=== PATIENT | male | born 1950 | race African-American/Black ===

== ENCOUNTER 2018-11-10 20:04 | Inpatient (IN) | payer MEDICARE, OTHER ==
[~2018-11-10] VITALS: Ht 170.2 cm; Wt 106.8 kg
[2018-11-10] MEDS ORDERED: ONDANSETRON PF 4 MG/2 ML VIAL. ONE (21:24)
[2018-11-10 21:41] LABS: BASO % 0 % (0-3); EOS # 0.1 x10^3/uL (0.0-0.7); EOS % 1 % (0-3); HEMATOCRIT 45.7 % (39.0-53.0); HEMOGLOBIN 15.3 g/dL (13.0-17.5); LYMPH # 0.9 x10^3/uL (1.0-4.8); LYMPH % 10 % (24-48); MEAN CORPUSCULAR HEMOGLOBIN 27 pg (25-35); MEAN CORPUSCULAR HGB CONC 34 g/dL (31-37); MEAN CORPUSCULAR VOLUME 81 fL (79-100); MONO # 1.3 x10^3/uL (0.0-1.1); MONO % 14 % (0-9); NEUT % 76 % (31-73); PLATELET COUNT 183 x10^3/uL (140-400); RED BLOOD COUNT 5.63 x10^6/uL (4.30-5.70); WHITE BLOOD COUNT 9.3 x10^3/uL (4.0-11.0)
[2018-11-10] MEDS ORDERED: ONDANSETRON PF 4 MG/2 ML VIAL. IV ONE (21:45)
[2018-11-10 21:52] LABS: PROTHROMBIN TIME PATIENT 15.8 SEC (11.7-14.0)
[2018-11-10 21:58] LABS: CREATININE 1.2 mg/dL (0.7-1.3); GFR 72.6; POTASSIUM 3.7 mmol/L (3.5-5.1)
[2018-11-10] MEDS ORDERED: ACETAMINOPHEN 500 MG TABLET PO ONE (22:00)
[2018-11-10] MEDS ORDERED: IV NORMAL SALINE 1000ML BAG 1,000 ML IV ONE ×2 (22:00→22:30)
[2018-11-10 22:04] LABS: ALBUMIN 4.1 g/dL (3.4-5.0); TOTAL BILIRUBIN 1.2 mg/dL (0.2-1.0); TOTAL PROTEIN 8.1 g/dL (6.4-8.2)
[2018-11-10] MEDS ORDERED: methylPREDNISolone SOD SUCC PF 125 MG/2 ML VIAL. IV ONE (22:30)
[2018-11-10] MEDS ORDERED: IPRATRPIUM/ALBUTEROL 0.5/2.5MG 3 ML NEBU. NEB ONE (22:30)
[2018-11-10] MEDS ORDERED: levOFLOXacin PER PHARMACY. MC PRN (22:30)
[2018-11-10 22:45] LABS: INFLUENZA A PATIENT POSITIVE (NEGATIVE); INFLUENZA B PATIENT NEGATIVE (NEGATIVE)
--- NOTE | 2018-11-10 22:50 | PHYS DOC ---
Past Medical History Past Medical History: Hypertension Past Surgical History: No Surgical History Smoking: Quit Greater Than 1 Year (Quit in his mid 20's, was a 1/2 pack per week smoker for 2 years) Alcohol Use: Rarely Drug Use: None Adult General Chief Complaint Chief Complaint: SHORTNESS OF BREATH HPI HPI Patient is a 68 year old afebrile male who presents with a productive cough, fever, and SOB. Pt reports that it started with just a cough yesterday evening that abruptly worsened today (11/10/18) in the early afternoon. He started to experience fever and chills, profound weakness and fatigue, and shortness of breath. He then started experiencing nausea and has vomited multiple times. He denies any sick contacts. The pt reports receiving his flu vaccination this year and a pneumococcal vaccination last year. Pt denies chest pain, palpitations, and CHIRINOS. Review of Systems Review of Systems Constitutional: Admits fever and chills Eyes: Denies change in visual acuity, redness, or eye pain HENT: Denies nasal congestion or sore throat Respiratory: Admits cough and shortness of breath Cardiovascular: No additional information not addressed in HPI GI: Admits to nausea and vomiting : Denies dysuria or hematuria Musculoskeletal: Denies back pain or joint pain Neurologic: Denies headache, focal weakness or sensory changes [] All other systems were reviewed and found to be within normal limits, except as documented in this note. Current Medications Current Medications Current Medications Medications (Trade) Dose Ordered Sig/Taj Start Time Stop Time Status Last Admin Dose Admin Acetaminophen (Tylenol) 1,000 mg 1X ONCE 11/10/18 22:00 11/10/18 22:01 DC 11/10/18 21:37 1,000 MG Albuterol/ Ipratropium (Duoneb) 3 ml 1X ONCE 11/10/18 22:30 11/10/18 22:31 DC 11/10/18 23:06 3 ML Levofloxacin/ Dextrose 100 ml @ 100 mls/hr 1X ONCE 11/10/18 22:45 11/10/18 23:44 DC 11/10/18 22:57 100 MLS/HR Levofloxacin/ Dextrose (Levaquin Per Pharmacy) 1 each PRN DAILY PRN 11/10/18 22:30 Methylprednisolone Sodium Succinate (SOLU-Medrol 125MG VIAL) 125 mg 1X ONCE 11/10/18 22:30 11/10/18 22:31 DC 11/10/18 22:27 125 MG Ondansetron HCl (Zofran) 4 mg 1X ONCE 11/10/18 21:45 11/10/18 21:46 DC 11/10/18 21:38 4 MG Sodium Chloride 1,000 ml @ 1,000 mls/hr 1X ONCE 11/10/18 22:30 11/10/18 23:29 DC 11/10/18 22:29 1,000 MLS/HR Allergies Allergies Allergies Coded Allergies Type Severity Reaction Last Updated Verified No Known Drug Allergies 11/10/18 No Physical Exam Physical Exam Constitutional: Well developed, well nourished, mild distress, toxic appearance. HENT: Normocephalic, atraumatic, bilateral external ears normal, oropharynx moist, no oral exudates, nose normal. [] Eyes: PERRLA, EOMI, conjunctiva normal, no discharge. [] Neck: Normal range of motion, no tenderness, supple, no stridor. [] Cardiovascular:Heart rate regular rhythm, no murmur [] Lungs & Thorax: Bilateral breath sounds have scattered rhonchi. His breaths are shallow and he is tachypneic. When instructed to take a deep breath he is unable to do so. Abdomen: Bowel sounds normal, soft, no tenderness, no masses, no pulsatile masses. [] Back: No tenderness, no CVA tenderness. [] Extremities: No tenderness, no cyanosis, no clubbing, ROM intact, no edema. [] Neurologic: Alert and oriented X 3, normal motor function, normal sensory function, no focal deficits noted. [] Current Patient Data Vital Signs Vital Signs Date Time Temp Pulse Resp B/P (MAP) Pulse Ox O2 Delivery O2 Flow Rate FiO2 11/10/18 22:30 89 19 182/81 (114) 93 Nasal Cannula 2.0 11/10/18 20:20 101.8 101.8 Lab Values Laboratory Tests Test 11/10/18 20:48 White Blood Count 9.3 x10^3/uL (4.0-11.0) Red Blood Count 5.63 x10^6/uL (4.30-5.70) Hemoglobin 15.3 g/dL (13.0-17.5) Hematocrit 45.7 % (39.0-53.0) Mean Corpuscular Volume 81 fL (79-100) Mean Corpuscular Hemoglobin 27 pg (25-35) Mean Corpuscular Hemoglobin Concent 34 g/dL (31-37) Red Cell Distribution Width 14.0 % (11.5-14.5) Platelet Count 183 x10^3/uL (140-400) Neutrophils (%) (Auto) 76 % (31-73) H Lymphocytes (%) (Auto) 10 % (24-48) L Monocytes (%) (Auto) 14 % (0-9) H Eosinophils (%) (Auto) 1 % (0-3) Basophils (%) (Auto) 0 % (0-3) Neutrophils # (Auto) 7.0 x10^3uL (1.8-7.7) Lymphocytes # (Auto) 0.9 x10^3/uL (1.0-4.8) L Monocytes # (Auto) 1.3 x10^3/uL (0.0-1.1) H Eosinophils # (Auto) 0.1 x10^3/uL (0.0-0.7) Basophils # (Auto) 0.0 x10^3/uL (0.0-0.2) Prothrombin Time 15.8 SEC (11.7-14.0) H Prothrombin Time INR 1.3 (0.8-1.1) H Sodium Level 139 mmol/L (136-145) Potassium Level 3.7 mmol/L (3.5-5.1) Chloride Level 100 mmol/L (98-107) Carbon Dioxide Level 26 mmol/L (21-32) Anion Gap 13 (6-14) Blood Urea Nitrogen 11 mg/dL (8-26) Creatinine 1.2 mg/dL (0.7-1.3) Estimated GFR (Cockcroft-Gault) 72.6 BUN/Creatinine Ratio 9 (6-20) Glucose Level 120 mg/dL (70-99) H Lactic Acid Level 2.7 mmol/L (0.4-2.0) H Calcium Level 9.0 mg/dL (8.5-10.1) Total Bilirubin 1.2 mg/dL (0.2-1.0) H Aspartate Amino Transferase (AST) 21 U/L (15-37) Alanine Aminotransferase (ALT) 35 U/L (16-63) Alkaline Phosphatase 80 U/L (46-116) Troponin I Quantitative 0.019 ng/mL (0.000-0.055) UP-Xpk-G-Type Natriuretic Peptide 1252 pg/mL (0-124) H Total Protein 8.1 g/dL (6.4-8.2) Albumin 4.1 g/dL (3.4-5.0) Albumin/Globulin Ratio 1.0 (1.0-1.7) Lipase 117 U/L (73-393) Procalcitonin 0.18 ng/mL (0.00-0.10) H Influenza Type A Antigen Positive (NEGATIVE) Influenza Type B Antigen Negative (NEGATIVE) Laboratory Tests 11/10/18 20:48 Laboratory Tests 11/10/18 20:48 EKG EKG []EKG shows normal sinus rhythm rate of 91 no acute ischemic changes noted PVC interpreted by me time of encounter. Radiology/Procedures Radiology/Procedures [] Impressions: cxr my interpretation shows a lll pneumonia. Course & Med Decision Making Course & Med Decision Making Patient is a 68 year old afebrile male who presents with a productive cough, fever, and SOB. Earlier today He started to experience fever and chills, profound weakness and fatigue, and shortness of breath. He then started experiencing nausea and has vomited multiple times. He denies any sick contacts. The pt reports receiving his flu vaccination this year and a pneumococcal vaccination last year. Pt denies chest pain, palpitations, and CHIRINOS. He was tachypneic, hypertensive, and unable to take a deep breath. Most likely diagnoses that need to be r/o or in: 1. Influenza 2. Sepsis 3. Pneumonia A CXR was ordered to check for acute pathology or infectious process leading to his tachypnea/SOA/cough/fever 2 sputum cultures and blood cultures, CBC, CMP, Lactic acid, ABX's, iv access and fluids were ordered with sepsis a possibility. Influenza screen. Patient was given IV antibiotics IV fluids albuterol we did a blood gas that did show a PaO2 of 55 on 3 L nasal cannula and went back to check the patient again he was breathing in the high 20s he felt a little better than before he was 93% on 4-5 L oxygen he said he was feeling a little better he will go to the intensive care unit. Did briefly discuss with on-call hospitalist was in the emergency room about this patient. [facility] for close monitoring given tachypnea. Critical care time was 40 minutes exclusive of procedures. for mgmt of acute hypoxemic respiratory failure. Dragon Disclaimer Dragon Disclaimer This electronic medical record was generated, in whole or in part, using a voice recognition dictation system. Departure Departure Impression: Primary Impression: Influenza Additional Impression: Pneumonia Disposition: ADMITTED INPATIENT Admitting Physician: Other Condition: STABLE Referrals: VIVEK MOSELEY MD (PCP) Problem Qualifiers RONNIE MOON MD Nov 10, 2018 22:50
[2018-11-10] MEDS ORDERED: OSELTAMIVIR 75 MG CAPSULE PO ONE (23:00)
[2018-11-10 23:28] LABS: BASE EXCESS ABG -3 mmol/L (-3-3); CORRECTED PCO2 ABG 35 mmHg; CORRECTED PO2 ABG 59 mmHg; HCO3 ABG 21 mmol/L (21-28); PCO2 ABG 34 mmHg (35-46); PO2 ABG 55 mmHg (65-108); SAT O2 ABG 89 % (92-99)
[2018-11-10] MEDS ORDERED: fentaNYL PF VIAL 100 MCG/2 ML VIAL IV PRN (23:30)
[2018-11-11] VITALS (16 sets, daily range): BP systolic 119–173; BP diastolic 57–80
--- NOTE | 2018-11-11 01:54 | RAD ---
Single view chest dated 11/10/2018. No comparison available. Clinical data indication: Fever. FINDINGS: Single upright exam performed. Heart and mediastinal contours are stable. There is some patchy increased density at both lung bases, left greater than right. No pleural effusion. No pneumothorax. There are a few scattered calcified granuloma. IMPRESSION: Patchy bibasilar opacity, atelectasis versus early pneumonia. Electronically signed by: Donato Brunner MD (11/11/2018 1:51 AM) [facility] [place]
[2018-11-11] MEDS: IV NORMAL SALINE 1000ML BAG 1,000 ML IV SCH ×4 (02:02→20:23)
--- NOTE | 2018-11-11 06:50 | PDOC ---
Provider Note Provider Note [id number] acute resp fail influenza A ?sepsis ?pneumonia see orders COLETTE OLVERA MD Nov 11, 2018 06:50
--- NOTE | 2018-11-11 07:32 | CONS ---
DATE OF CONSULTATION: 11/11/2018 REASON FOR CONSULTATION: I was asked to see this 68-year-old gentleman for acute respiratory failure, influenza A, pneumonia. HISTORY OF PRESENT ILLNESS: He has remote history of smoking in his 20s, has not been diagnosed with any lung disease. He has obstructive sleep apnea-hypopnea syndrome, he is on CPAP. He started to have weakness, cough, shortness of breath, yellow sputum production, fever, chills 2 days ago. He has had body aches. He did receive flu vaccination this year. He denies chest pain. He has had runny nose. PAST MEDICAL HISTORY: Hypertension, obstructive sleep apnea-hypopnea syndrome. ALLERGIES: No known drug allergies. MEDICATIONS: He received Tamiflu in the Emergency Room. He is on Levaquin and albuterol. SOCIAL HISTORY: Remote history of smoking in his 20s. FAMILY HISTORY: There is no history of lung disease. REVIEW OF SYSTEMS: As mentioned above. Other systems are otherwise negative. PHYSICAL EXAMINATION: VITAL SIGNS: This is an overweight gentleman, his O2 saturation on 2 liters of oxygen is 98%, respiratory rate 22, heart rate 68, blood pressure 147/72, temperature 97.9. On admission, he required 6 liters of oxygen. HEENT: Normocephalic, atraumatic. Pupils equal, round, reactive to light. Throat is clear. There is shallow oropharynx. Nose is clear. NECK: There is no JVD, lymphadenopathy or thyromegaly. CARDIOVASCULAR: Regular rate and rhythm. PMI is not displaced. CHEST: Inspection is normal. LUNGS: Coarse breath sounds, bibasilar crackles, dullness at the left base. ABDOMEN: Soft and obese. Bowel sounds are good. There is no mass. EXTREMITIES: There is no edema. LYMPHATICS: There is no lymphadenopathy. NEUROLOGIC: Alert and oriented. SKIN: Warm. LABORATORY DATA: I reviewed the following laboratory. Chest x-ray showed bibasilar infiltrate, left more than right. Influenza A positive. WBC 9.3, hemoglobin 15.3, platelets 183. Sodium 139, potassium 3.7, chloride 100, CO2 26, glucose 120, BUN 11, creatinine 1.2. BNP 1252. Procalcitonin 0.18. Lactate on admission was 2.7, now it is 1.8. ABG: pH 7.42, pCO2 34, pO2 55. IMPRESSION: 1. Acute respiratory failure secondary to influenza A, possible pneumonia, ? congestive heart failure, his BNP was 1252, versus others. 2. Abnormal chest x-ray. 3. Influenza A. 4. Possible pneumonia. 5. Possible sepsis. 6. Obstructive sleep apnea-hypopnea syndrome. 7. Hypertension. PLAN AND RECOMMENDATIONS: 1. Titrate FiO2 to keep O2 saturation 92%. 2. Bronchodilator. 3. Continue Tamiflu. 4. Continue Levaquin. 5. Follow up cultures. 6. Protonix for stress ulcer prophylaxis. 7. Lovenox for DVT prophylaxis. 8. Monitor respiratory status very closely in ICU. 9. Continue isolation for influenza A. 10. Use CPAP during sleep. 11. His BNP was elevated on admission. I do recommend an echocardiogram. 12. The findings and recommendations were discussed with the patient and RN. I have answered all of the patient's questions. He understood and agreed to proceed with the plan. Thank you very much for allowing me to participate in care of this very nice gentleman. COLETTE OLVERA M.D. : Bon JOB#: [id number] / [id number] YFN
[2018-11-11] MEDS: ALBUTEROL SULFATE 2.5 MG/3 ML NEBU. NEB SCH ×4 (07:40→20:11)
[2018-11-11] MEDS: PANTOPRAZOLE 40 MG TABLET.DR. PO SCH (08:01)
[2018-11-11] MEDS: ENOXAPARIN 40 MG/0.4 ML SYRINGE. SQ SCH (08:01)
--- NOTE | 2018-11-11 08:27 | EKG ---
[facility] [address] [place] [address] Test Date: 2018-11-10 Test Time: 21:41:52 Pat Name: GABRIELLA MURRAY Department: Room: 106 1 Gender: M Farmworker: : 1950 Requested By: RONNIE MOON Order Number: [id number] Reading MD: Josh Constantino MD Measurements Intervals [place] Rate: 91 P: 38 MS: 146 QRS: -58 QRSD: 96 T: 54 QT: 360 QTc: 444 Interpretive Statements SINUS RHYTHM VENTRICULAR PREMATURE COMPLEX(ES) LOW VOLTAGE BASELINE MOTION ARTIFACT Electronically Signed On 11-21-2018 21:49:10 CDT by Josh Constantino MD
[2018-11-11] MEDS: OSELTAMIVIR 75 MG CAPSULE PO SCH ×2 (09:22→20:19)
[2018-11-11] MEDS ORDERED: DEXTROSE 50% 25 GM / 50ML DISP.SYRIN. IV PRN (09:30)
--- NOTE | 2018-11-11 11:04 | HP ---
ADMIT DATE: 11/11/2018 CHIEF COMPLAINT: Shortness of breath. HISTORY OF PRESENT ILLNESS: The patient is a pleasant 68-year-old male who presented to the ER with shortness of breath. He had associated productive cough and fever. It has been occurring for several days, rated at 9/10, worse with moving. He tried taking some home meds, but that did not work. While he was in the ER, we noticed that he had a flu positive on his serology testing. He has now been admitted to the ICU where he is being examined in the room 106. It should also be noted that his chest x-ray is showing possible pneumonia. We plan to consult Pulmonary Medicine. PAST MEDICAL HISTORY: Hypertension. He is a smoker, half pack but quit 20 years ago. MEDICATIONS: Reviewed, please refer to the MRAD. ALLERGIES: None. FAMILY HISTORY: Coronary artery disease. SOCIAL HISTORY: He is retired. He does not currently drink, smoke or take drugs. REVIEW OF SYSTEMS: GENERAL: No history of weight change, weakness or fevers. SKIN: No bruising, hair changes or rashes. EYES: No blurred, double or loss of vision. NOSE AND THROAT: No history of nosebleeds, hoarseness or sore throat. HEART: No history of palpitations, chest pain or shortness of breath on exertion. LUNGS: He complains of shortness of breath. GASTROINTESTINAL: Denies changes in appetite, nausea, vomiting, diarrhea or constipation. GENITOURINARY: No history of frequency, urgency, hesitancy or nocturia. NEUROLOGIC: Denies history of numbness, tingling, tremor or weakness. PSYCHIATRIC: No history of panic, anxiety or depression. ENDOCRINE: No history of heat or cold intolerance, polyuria or polydipsia. EXTREMITIES: Denies muscle weakness, joint pain, pain on walking or stiffness. PHYSICAL EXAMINATION: VITAL SIGNS: Temperature 98, but it was as high as 101.8 last night, pulse 80, respirations 16, blood pressure 134/57, O2 sat 97% on 2 liters. GENERAL: He is alert, cooperative. He has a friend present who seems to be good support for him. HEART: Normal S1, S2. LUNGS: Slight crackles. ABDOMEN: Soft. EXTREMITIES: Trace edema. SKIN: No rashes. ENDOCRINE: No thyromegaly. LYMPHATICS: No cervical nodes. HEMATOPOIETIC: No bruising. PSYCHIATRIC: He is stable. LABORATORY DATA: Hematology is normal. Electrolytes are normal. Troponin 0.019. BNP 1252. INR 1.3. Chest x-ray shows possible pneumonia. ASSESSMENT AND PLAN: Flu and clinical pneumonia. The patient has been admitted. We are starting Tamiflu, IV Levaquin. Home meds. Deep vein thrombosis prophylaxis, ICU monitoring, PT, OT, frequent labs. Full code. DuoNeb and oxygen. We consulted Pulmonary. PROGNOSIS: Guarded. JOHN HEREDIA DO DR: LÓPEZ/diana JOB#: [id number] / [id number]
--- NOTE | 2018-11-11 11:14 | NUR ---
Order received from Dr. Colvin to downgrade patient. MOF status. Patient is currently on 2L NC, resting comfortably. Family at bedside. Tamiflu given at 0830. See EMAR. VS WNL.
[2018-11-11] MEDS: INSULIN LISPRO 300 UNITS/3 ML INSULN.PEN. SQ SCH ×2 (12:00→17:00)
[2018-11-11] MEDS ORDERED: METO200T46 PO (17:20)
[2018-11-11] MEDS ORDERED: AMLO10TA8 PO (17:20)
[2018-11-11] MEDS ORDERED: HYDR-2145 PO (17:20)
[2018-11-11] MEDS ORDERED: ALLO300T PO (17:20)
[2018-11-11] MEDS ORDERED: LISI-130 PO (17:20)
[2018-11-11] MEDS: LACTOBACILLUS RHAMNOSUS GG 1 CAPSULE. PO SCH (20:19)
[2018-11-12] MEDS: ALBUTEROL SULFATE 2.5 MG/3 ML NEBU. NEB SCH ×5 (00:08→23:30)
[2018-11-12 03:19] VITALS: BP 187/82
[2018-11-12 06:09] LABS: BASO % 0 % (0-3); EOS % 0 % (0-3); HEMATOCRIT 43.9 % (39.0-53.0); HEMOGLOBIN 14.1 g/dL (13.0-17.5); LYMPH # 1.3 x10^3/uL (1.0-4.8); LYMPH % 14 % (24-48); MEAN CORPUSCULAR HEMOGLOBIN 27 pg (25-35); MEAN CORPUSCULAR HGB CONC 32 g/dL (31-37); MEAN CORPUSCULAR VOLUME 84 fL (79-100); MONO % 11 % (0-9); NEUT # 6.9 x10^3uL (1.8-7.7); NEUT % 75 % (31-73); PLATELET COUNT 138 x10^3/uL (140-400); RED BLOOD COUNT 5.26 x10^6/uL (4.30-5.70); RED CELL DISTRIBUTION WIDTH 14.4 % (11.5-14.5); WHITE BLOOD COUNT 9.2 x10^3/uL (4.0-11.0)
[2018-11-12] MEDS: ENOXAPARIN 40 MG/0.4 ML SYRINGE. SQ SCH (06:09)
[2018-11-12 06:47] LABS: ALBUMIN 3.1 g/dL (3.4-5.0); ALBUMIN/GLOBULIN RATIO 0.8 (1.0-1.7); CALCIUM 8.5 mg/dL (8.5-10.1); CREATININE 0.9 mg/dL (0.7-1.3); GFR 101.2; POTASSIUM 3.6 mmol/L (3.5-5.1); TOTAL BILIRUBIN 0.8 mg/dL (0.2-1.0)
[2018-11-12 07:00] VITALS: BP 163/88
--- NOTE | 2018-11-12 07:09 | NUR ---
I have reviewed the notes, assessment, and /or procedures preformed by Esperanza Balderrama nursing home admissions director and concur with her documentation unless otherwise noted.
[2018-11-12] MEDS: INSULIN LISPRO 300 UNITS/3 ML INSULN.PEN. SQ SCH ×3 (08:00→17:00)
[2018-11-12] MEDS: OSELTAMIVIR 75 MG CAPSULE PO SCH ×2 (08:35→20:07)
[2018-11-12] MEDS: LACTOBACILLUS RHAMNOSUS GG 1 CAPSULE. PO SCH ×2 (08:35→20:07)
[2018-11-12] MEDS: PANTOPRAZOLE 40 MG TABLET.DR. PO SCH (08:35)
--- NOTE | 2018-11-12 09:54 | PDOC ---
PULMONARY PROGRESS NOTES Subjective still has sob, has cough, no pain, is on 02 Vitals Vital Signs Date Time Temp Pulse Resp B/P (MAP) Pulse Ox O2 Delivery O2 Flow Rate FiO2 11/12/18 07:13 95 Nasal Cannula 2.0 11/12/18 07:00 98.9 89 22 163/88 (113) 98.9 ROS: No Nausea General: Alert, Oriented X4 HEENT: Other (nc at perrl) Lungs: Wheezing Cardiovascular: S1, S2 Abdomen: Soft, Non-tender Neuro Exam: Alert Extremities: No Edema Skin: Warm Labs Laboratory Tests Test 11/10/18 20:48 11/10/18 22:52 11/11/18 03:07 11/11/18 04:00 White Blood Count 9.3 x10^3/uL (4.0-11.0) Red Blood Count 5.63 x10^6/uL (4.30-5.70) Hemoglobin 15.3 g/dL (13.0-17.5) Hematocrit 45.7 % (39.0-53.0) Mean Corpuscular Volume 81 fL (79-100) Mean Corpuscular Hemoglobin 27 pg (25-35) Mean Corpuscular Hemoglobin Concent 34 g/dL (31-37) Red Cell Distribution Width 14.0 % (11.5-14.5) Platelet Count 183 x10^3/uL (140-400) Neutrophils (%) (Auto) 76 % (31-73) Lymphocytes (%) (Auto) 10 % (24-48) Monocytes (%) (Auto) 14 % (0-9) Eosinophils (%) (Auto) 1 % (0-3) Basophils (%) (Auto) 0 % (0-3) Neutrophils # (Auto) 7.0 x10^3uL (1.8-7.7) Lymphocytes # (Auto) 0.9 x10^3/uL (1.0-4.8) Monocytes # (Auto) 1.3 x10^3/uL (0.0-1.1) Eosinophils # (Auto) 0.1 x10^3/uL (0.0-0.7) Basophils # (Auto) 0.0 x10^3/uL (0.0-0.2) Prothrombin Time 15.8 SEC (11.7-14.0) Prothromb Time International Ratio 1.3 (0.8-1.1) Sodium Level 139 mmol/L (136-145) Potassium Level 3.7 mmol/L (3.5-5.1) Chloride Level 100 mmol/L (98-107) Carbon Dioxide Level 26 mmol/L (21-32) Anion Gap 13 (6-14) Blood Urea Nitrogen 11 mg/dL (8-26) Creatinine 1.2 mg/dL (0.7-1.3) Estimated GFR (Cockcroft-Gault) 72.6 BUN/Creatinine Ratio 9 (6-20) Glucose Level 120 mg/dL (70-99) Lactic Acid Level 2.7 mmol/L (0.4-2.0) 1.8 mmol/L (0.4-2.0) Calcium Level 9.0 mg/dL (8.5-10.1) Total Bilirubin 1.2 mg/dL (0.2-1.0) Aspartate Amino Transf (AST/SGOT) 21 U/L (15-37) Alanine Aminotransferase (ALT/SGPT) 35 U/L (16-63) Alkaline Phosphatase 80 U/L (46-116) Troponin I Quantitative 0.019 ng/mL (0.000-0.055) AT-Ram-G-Type Natriuretic Peptide 1252 pg/mL (0-124) Total Protein 8.1 g/dL (6.4-8.2) Albumin 4.1 g/dL (3.4-5.0) Albumin/Globulin Ratio 1.0 (1.0-1.7) Lipase 117 U/L (73-393) Procalcitonin 0.18 ng/mL (0.00-0.10) Influenza Type A Antigen Positive (NEGATIVE) Influenza Type B Antigen Negative (NEGATIVE) O2 Saturation 89 % (92-99) Arterial Blood pH 7.42 (7.35-7.45) Arterial Blood pH (Temp corrected) 7.40 Arterial Blood pCO2 at Patient Temp 34 mmHg (35-46) Arterial Blood pCO2 (Temp correct) 35 mmHg Arterial Blood pO2 at Patient Temp 55 mmHg (65-108) Arterial Blood pO2 (Temp corrected) 59 mmHg Arterial Blood HCO3 21 mmol/L (21-28) Arterial Blood Base Excess -3 mmol/L (-3-3) Nasal Screen MRSA (PCR) Negative (Negative) Test 11/11/18 20:53 11/12/18 05:35 11/12/18 07:33 Glucose (Fingerstick) 125 mg/dL (70-99) 98 mg/dL (70-99) White Blood Count 9.2 x10^3/uL (4.0-11.0) Red Blood Count 5.26 x10^6/uL (4.30-5.70) Hemoglobin 14.1 g/dL (13.0-17.5) Hematocrit 43.9 % (39.0-53.0) Mean Corpuscular Volume 84 fL (79-100) Mean Corpuscular Hemoglobin 27 pg (25-35) Mean Corpuscular Hemoglobin Concent 32 g/dL (31-37) Red Cell Distribution Width 14.4 % (11.5-14.5) Platelet Count 138 x10^3/uL (140-400) Neutrophils (%) (Auto) 75 % (31-73) Lymphocytes (%) (Auto) 14 % (24-48) Monocytes (%) (Auto) 11 % (0-9) Eosinophils (%) (Auto) 0 % (0-3) Basophils (%) (Auto) 0 % (0-3) Neutrophils # (Auto) 6.9 x10^3uL (1.8-7.7) Lymphocytes # (Auto) 1.3 x10^3/uL (1.0-4.8) Monocytes # (Auto) 1.0 x10^3/uL (0.0-1.1) Eosinophils # (Auto) 0.0 x10^3/uL (0.0-0.7) Basophils # (Auto) 0.0 x10^3/uL (0.0-0.2) Sodium Level 144 mmol/L (136-145) Potassium Level 3.6 mmol/L (3.5-5.1) Chloride Level 107 mmol/L (98-107) Carbon Dioxide Level 25 mmol/L (21-32) Anion Gap 12 (6-14) Blood Urea Nitrogen 12 mg/dL (8-26) Creatinine 0.9 mg/dL (0.7-1.3) Estimated GFR (Cockcroft-Gault) 101.2 BUN/Creatinine Ratio 13 (6-20) Glucose Level 107 mg/dL (70-99) Calcium Level 8.5 mg/dL (8.5-10.1) Total Bilirubin 0.8 mg/dL (0.2-1.0) Aspartate Amino Transf (AST/SGOT) 30 U/L (15-37) Alanine Aminotransferase (ALT/SGPT) 30 U/L (16-63) Alkaline Phosphatase 61 U/L (46-116) Total Protein 7.0 g/dL (6.4-8.2) Albumin 3.1 g/dL (3.4-5.0) Albumin/Globulin Ratio 0.8 (1.0-1.7) Laboratory Tests Test 11/11/18 20:53 11/12/18 05:35 11/12/18 07:33 Glucose (Fingerstick) 125 mg/dL (70-99) 98 mg/dL (70-99) White Blood Count 9.2 x10^3/uL (4.0-11.0) Red Blood Count 5.26 x10^6/uL (4.30-5.70) Hemoglobin 14.1 g/dL (13.0-17.5) Hematocrit 43.9 % (39.0-53.0) Mean Corpuscular Volume 84 fL (79-100) Mean Corpuscular Hemoglobin 27 pg (25-35) Mean Corpuscular Hemoglobin Concent 32 g/dL (31-37) Red Cell Distribution Width 14.4 % (11.5-14.5) Platelet Count 138 x10^3/uL (140-400) Neutrophils (%) (Auto) 75 % (31-73) Lymphocytes (%) (Auto) 14 % (24-48) Monocytes (%) (Auto) 11 % (0-9) Eosinophils (%) (Auto) 0 % (0-3) Basophils (%) (Auto) 0 % (0-3) Neutrophils # (Auto) 6.9 x10^3uL (1.8-7.7) Lymphocytes # (Auto) 1.3 x10^3/uL (1.0-4.8) Monocytes # (Auto) 1.0 x10^3/uL (0.0-1.1) Eosinophils # (Auto) 0.0 x10^3/uL (0.0-0.7) Basophils # (Auto) 0.0 x10^3/uL (0.0-0.2) Sodium Level 144 mmol/L (136-145) Potassium Level 3.6 mmol/L (3.5-5.1) Chloride Level 107 mmol/L (98-107) Carbon Dioxide Level 25 mmol/L (21-32) Anion Gap 12 (6-14) Blood Urea Nitrogen 12 mg/dL (8-26) Creatinine 0.9 mg/dL (0.7-1.3) Estimated GFR (Cockcroft-Gault) 101.2 BUN/Creatinine Ratio 13 (6-20) Glucose Level 107 mg/dL (70-99) Calcium Level 8.5 mg/dL (8.5-10.1) Total Bilirubin 0.8 mg/dL (0.2-1.0) Aspartate Amino Transf (AST/SGOT) 30 U/L (15-37) Alanine Aminotransferase (ALT/SGPT) 30 U/L (16-63) Alkaline Phosphatase 61 U/L (46-116) Total Protein 7.0 g/dL (6.4-8.2) Albumin 3.1 g/dL (3.4-5.0) Albumin/Globulin Ratio 0.8 (1.0-1.7) Medications Active Scripts Medications Dose Route/Sig Max Daily Dose Days Date Category Metoprolol Succinate ( Xl ) (Metoprolol Succinate) 200 Mg Tab.er.24h 1 Tab PO DAILY 11/11/18 Reported Hydrochlorothiazide Tablet (Hydrochlorothiazide) 25 Mg Tablet 25 Mg PO DAILY 11/11/18 Reported Allopurinol 300 Mg Tablet 1 Tab PO DAILY 11/11/18 Reported Lisinopril 40 Mg Tablet 1 Tab PO DAILY 11/11/18 Reported Amlodipine Besylate 10 Mg Tablet 10 Mg PO DAILY 11/11/18 Reported Impression . IMPRESSION: 1. Acute respiratory failure secondary to influenza A, possible pneumonia, ? congestive heart failure, his BNP was 1252, versus others. 2. Abnormal chest x-ray. 3. Influenza A. 4. Possible pneumonia. 5. Possible sepsis. 6. Obstructive sleep apnea-hypopnea syndrome. 7. Hypertension. Plan . PLAN AND RECOMMENDATIONS: 1. Titrate FiO2 to keep O2 saturation 92%. 2. Bronchodilator. add ICS 3. Continue Tamiflu. 4. Continue Levaquin. 5. Follow up cultures. 6. Protonix for stress ulcer prophylaxis. 7. Lovenox for DVT prophylaxis. 8. Monitor respiratory status closely 9. Continue isolation for influenza A. 10. Use CPAP during sleep. 11. His BNP was elevated on admission. will do echocardiogram. discussed w priya and his daughter COLETTE OLVERA MD Nov 12, 2018 09:54
[2018-11-12] MEDS: BUDESONIDE 0.5 MG/2 ML NEBU. NEB SCH ×2 (10:00→20:27)
[2018-11-12 11:00] VITALS: BP 176/96
[2018-11-12] MEDS: hydroCHLOROthiazide 25 MG TABLET PO SCH (11:47)
[2018-11-12] MEDS: LISINOPRIL 20 MG TABLET PO SCH (11:49)
[2018-11-12] MEDS: amLODIPine BESYLATE 10 MG TABLET PO SCH (11:49)
[2018-11-12] MEDS: METOPROLOL SUCC 24HR ER 100 MG TAB.ER.24H. PO SCH (11:50)
[2018-11-12] MEDS: ALLOPURINOL 300 MG TABLET. PO SCH (11:50)
--- NOTE | 2018-11-12 12:41 | PDOC ---
PROGRESS NOTES Chief Complaint Chief Complaint Acute respiratory failure secondary to influenza A, possible pneumonia, ? CHF? elevated BNP Influenza A. Empiric treatment for Possible pneumonia. Obstructive sleep apnea-hypopnea syndrome. Hypertension. PLAN As per informatics consultant: 1. Titrate FiO2 to keep O2 saturation 92%. 2. Bronchodilator. 3. Continue Tamiflu. 4. Continue Levaquin. 5. Follow up cultures. 6. Protonix for stress ulcer prophylaxis. 7. Lovenox for DVT prophylaxis. Will restart his home medications reeval in the am Vitals Vitals Vital Signs Date Time Temp Pulse Resp B/P (MAP) Pulse Ox O2 Delivery O2 Flow Rate FiO2 11/12/18 11:50 88 176/96 11/12/18 11:00 98.8 18 91 Nasal Cannula 2.0 98.8 Physical Exam Lungs: Wheezing Labs LABS Laboratory Tests Test 11/11/18 20:53 11/12/18 05:35 11/12/18 07:33 11/12/18 11:44 Glucose (Fingerstick) 125 mg/dL (70-99) 98 mg/dL (70-99) 99 mg/dL (70-99) White Blood Count 9.2 x10^3/uL (4.0-11.0) Red Blood Count 5.26 x10^6/uL (4.30-5.70) Hemoglobin 14.1 g/dL (13.0-17.5) Hematocrit 43.9 % (39.0-53.0) Mean Corpuscular Volume 84 fL (79-100) Mean Corpuscular Hemoglobin 27 pg (25-35) Mean Corpuscular Hemoglobin Concent 32 g/dL (31-37) Red Cell Distribution Width 14.4 % (11.5-14.5) Platelet Count 138 x10^3/uL (140-400) Neutrophils (%) (Auto) 75 % (31-73) Lymphocytes (%) (Auto) 14 % (24-48) Monocytes (%) (Auto) 11 % (0-9) Eosinophils (%) (Auto) 0 % (0-3) Basophils (%) (Auto) 0 % (0-3) Neutrophils # (Auto) 6.9 x10^3uL (1.8-7.7) Lymphocytes # (Auto) 1.3 x10^3/uL (1.0-4.8) Monocytes # (Auto) 1.0 x10^3/uL (0.0-1.1) Eosinophils # (Auto) 0.0 x10^3/uL (0.0-0.7) Basophils # (Auto) 0.0 x10^3/uL (0.0-0.2) Sodium Level 144 mmol/L (136-145) Potassium Level 3.6 mmol/L (3.5-5.1) Chloride Level 107 mmol/L (98-107) Carbon Dioxide Level 25 mmol/L (21-32) Anion Gap 12 (6-14) Blood Urea Nitrogen 12 mg/dL (8-26) Creatinine 0.9 mg/dL (0.7-1.3) Estimated GFR (Cockcroft-Gault) 101.2 BUN/Creatinine Ratio 13 (6-20) Glucose Level 107 mg/dL (70-99) Calcium Level 8.5 mg/dL (8.5-10.1) Total Bilirubin 0.8 mg/dL (0.2-1.0) Aspartate Amino Transf (AST/SGOT) 30 U/L (15-37) Alanine Aminotransferase (ALT/SGPT) 30 U/L (16-63) Alkaline Phosphatase 61 U/L (46-116) Total Protein 7.0 g/dL (6.4-8.2) Albumin 3.1 g/dL (3.4-5.0) Albumin/Globulin Ratio 0.8 (1.0-1.7) Review of Systems Review of Systems Pertinent as per history of present illness otherwise 14 point review of system is negative Comment Review of Relevant I have reviewed the following items silvestre (where applicable) has been applied. Labs Laboratory Tests Test 11/10/18 20:48 11/10/18 22:52 11/11/18 03:07 11/11/18 04:00 White Blood Count 9.3 x10^3/uL (4.0-11.0) Red Blood Count 5.63 x10^6/uL (4.30-5.70) Hemoglobin 15.3 g/dL (13.0-17.5) Hematocrit 45.7 % (39.0-53.0) Mean Corpuscular Volume 81 fL (79-100) Mean Corpuscular Hemoglobin 27 pg (25-35) Mean Corpuscular Hemoglobin Concent 34 g/dL (31-37) Red Cell Distribution Width 14.0 % (11.5-14.5) Platelet Count 183 x10^3/uL (140-400) Neutrophils (%) (Auto) 76 % (31-73) Lymphocytes (%) (Auto) 10 % (24-48) Monocytes (%) (Auto) 14 % (0-9) Eosinophils (%) (Auto) 1 % (0-3) Basophils (%) (Auto) 0 % (0-3) Neutrophils # (Auto) 7.0 x10^3uL (1.8-7.7) Lymphocytes # (Auto) 0.9 x10^3/uL (1.0-4.8) Monocytes # (Auto) 1.3 x10^3/uL (0.0-1.1) Eosinophils # (Auto) 0.1 x10^3/uL (0.0-0.7) Basophils # (Auto) 0.0 x10^3/uL (0.0-0.2) Prothrombin Time 15.8 SEC (11.7-14.0) Prothromb Time International Ratio 1.3 (0.8-1.1) Sodium Level 139 mmol/L (136-145) Potassium Level 3.7 mmol/L (3.5-5.1) Chloride Level 100 mmol/L (98-107) Carbon Dioxide Level 26 mmol/L (21-32) Anion Gap 13 (6-14) Blood Urea Nitrogen 11 mg/dL (8-26) Creatinine 1.2 mg/dL (0.7-1.3) Estimated GFR (Cockcroft-Gault) 72.6 BUN/Creatinine Ratio 9 (6-20) Glucose Level 120 mg/dL (70-99) Lactic Acid Level 2.7 mmol/L (0.4-2.0) 1.8 mmol/L (0.4-2.0) Calcium Level 9.0 mg/dL (8.5-10.1) Total Bilirubin 1.2 mg/dL (0.2-1.0) Aspartate Amino Transf (AST/SGOT) 21 U/L (15-37) Alanine Aminotransferase (ALT/SGPT) 35 U/L (16-63) Alkaline Phosphatase 80 U/L (46-116) Troponin I Quantitative 0.019 ng/mL (0.000-0.055) TW-Zog-D-Type Natriuretic Peptide 1252 pg/mL (0-124) Total Protein 8.1 g/dL (6.4-8.2) Albumin 4.1 g/dL (3.4-5.0) Albumin/Globulin Ratio 1.0 (1.0-1.7) Lipase 117 U/L (73-393) Procalcitonin 0.18 ng/mL (0.00-0.10) Influenza Type A Antigen Positive (NEGATIVE) Influenza Type B Antigen Negative (NEGATIVE) O2 Saturation 89 % (92-99) Arterial Blood pH 7.42 (7.35-7.45) Arterial Blood pH (Temp corrected) 7.40 Arterial Blood pCO2 at Patient Temp 34 mmHg (35-46) Arterial Blood pCO2 (Temp correct) 35 mmHg Arterial Blood pO2 at Patient Temp 55 mmHg (65-108) Arterial Blood pO2 (Temp corrected) 59 mmHg Arterial Blood HCO3 21 mmol/L (21-28) Arterial Blood Base Excess -3 mmol/L (-3-3) Nasal Screen MRSA (PCR) Negative (Negative) Test 11/11/18 20:53 11/12/18 05:35 11/12/18 07:33 11/12/18 11:44 Glucose (Fingerstick) 125 mg/dL (70-99) 98 mg/dL (70-99) 99 mg/dL (70-99) White Blood Count 9.2 x10^3/uL (4.0-11.0) Red Blood Count 5.26 x10^6/uL (4.30-5.70) Hemoglobin 14.1 g/dL (13.0-17.5) Hematocrit 43.9 % (39.0-53.0) Mean Corpuscular Volume 84 fL (79-100) Mean Corpuscular Hemoglobin 27 pg (25-35) Mean Corpuscular Hemoglobin Concent 32 g/dL (31-37) Red Cell Distribution Width 14.4 % (11.5-14.5) Platelet Count 138 x10^3/uL (140-400) Neutrophils (%) (Auto) 75 % (31-73) Lymphocytes (%) (Auto) 14 % (24-48) Monocytes (%) (Auto) 11 % (0-9) Eosinophils (%) (Auto) 0 % (0-3) Basophils (%) (Auto) 0 % (0-3) Neutrophils # (Auto) 6.9 x10^3uL (1.8-7.7) Lymphocytes # (Auto) 1.3 x10^3/uL (1.0-4.8) Monocytes # (Auto) 1.0 x10^3/uL (0.0-1.1) Eosinophils # (Auto) 0.0 x10^3/uL (0.0-0.7) Basophils # (Auto) 0.0 x10^3/uL (0.0-0.2) Sodium Level 144 mmol/L (136-145) Potassium Level 3.6 mmol/L (3.5-5.1) Chloride Level 107 mmol/L (98-107) Carbon Dioxide Level 25 mmol/L (21-32) Anion Gap 12 (6-14) Blood Urea Nitrogen 12 mg/dL (8-26) Creatinine 0.9 mg/dL (0.7-1.3) Estimated GFR (Cockcroft-Gault) 101.2 BUN/Creatinine Ratio 13 (6-20) Glucose Level 107 mg/dL (70-99) Calcium Level 8.5 mg/dL (8.5-10.1) Total Bilirubin 0.8 mg/dL (0.2-1.0) Aspartate Amino Transf (AST/SGOT) 30 U/L (15-37) Alanine Aminotransferase (ALT/SGPT) 30 U/L (16-63) Alkaline Phosphatase 61 U/L (46-116) Total Protein 7.0 g/dL (6.4-8.2) Albumin 3.1 g/dL (3.4-5.0) Albumin/Globulin Ratio 0.8 (1.0-1.7) Laboratory Tests Test 11/11/18 20:53 11/12/18 05:35 11/12/18 07:33 11/12/18 11:44 Glucose (Fingerstick) 125 mg/dL (70-99) 98 mg/dL (70-99) 99 mg/dL (70-99) White Blood Count 9.2 x10^3/uL (4.0-11.0) Red Blood Count 5.26 x10^6/uL (4.30-5.70) Hemoglobin 14.1 g/dL (13.0-17.5) Hematocrit 43.9 % (39.0-53.0) Mean Corpuscular Volume 84 fL (79-100) Mean Corpuscular Hemoglobin 27 pg (25-35) Mean Corpuscular Hemoglobin Concent 32 g/dL (31-37) Red Cell Distribution Width 14.4 % (11.5-14.5) Platelet Count 138 x10^3/uL (140-400) Neutrophils (%) (Auto) 75 % (31-73) Lymphocytes (%) (Auto) 14 % (24-48) Monocytes (%) (Auto) 11 % (0-9) Eosinophils (%) (Auto) 0 % (0-3) Basophils (%) (Auto) 0 % (0-3) Neutrophils # (Auto) 6.9 x10^3uL (1.8-7.7) Lymphocytes # (Auto) 1.3 x10^3/uL (1.0-4.8) Monocytes # (Auto) 1.0 x10^3/uL (0.0-1.1) Eosinophils # (Auto) 0.0 x10^3/uL (0.0-0.7) Basophils # (Auto) 0.0 x10^3/uL (0.0-0.2) Sodium Level 144 mmol/L (136-145) Potassium Level 3.6 mmol/L (3.5-5.1) Chloride Level 107 mmol/L (98-107) Carbon Dioxide Level 25 mmol/L (21-32) Anion Gap 12 (6-14) Blood Urea Nitrogen 12 mg/dL (8-26) Creatinine 0.9 mg/dL (0.7-1.3) Estimated GFR (Cockcroft-Gault) 101.2 BUN/Creatinine Ratio 13 (6-20) Glucose Level 107 mg/dL (70-99) Calcium Level 8.5 mg/dL (8.5-10.1) Total Bilirubin 0.8 mg/dL (0.2-1.0) Aspartate Amino Transf (AST/SGOT) 30 U/L (15-37) Alanine Aminotransferase (ALT/SGPT) 30 U/L (16-63) Alkaline Phosphatase 61 U/L (46-116) Total Protein 7.0 g/dL (6.4-8.2) Albumin 3.1 g/dL (3.4-5.0) Albumin/Globulin Ratio 0.8 (1.0-1.7) Microbiology 11/11/18 Blood Culture - Preliminary, Resulted NO GROWTH AFTER 1 DAY Medications Current Medications Ondansetron HCl (Zofran) 4 mg STK-MED ONCE .ROUTE ; Start 11/10/18 at 21:24; Stop 11/10/18 at 21:25; Status DC Ondansetron HCl (Zofran) 4 mg 1X ONCE IV Last administered on 11/10/18 21:38; Start 11/10/18 at 21:45; Stop 11/10/18 at 21:46; Status DC Sodium Chloride 1,000 ml @ 1,000 mls/hr 1X ONCE IV Last administered on 21:38; Start 11/10/18 at 22:00; Stop 11/10/18 at 22:59; Status DC Acetaminophen (Tylenol) 1,000 mg 1X ONCE PO Last administered on 11/10/18 21: 37; Start 11/10/18 at 22:00; Stop 11/10/18 at 22:01; Status DC Albuterol/ Ipratropium (Duoneb) 3 ml 1X ONCE NEB Last administered on 23:06; Start 11/10/18 at 22:30; Stop 11/10/18 at 22:31; Status DC Methylprednisolone Sodium Succinate (SOLU-Medrol 125MG VIAL) 125 mg 1X ONCE IV Last administered on 11/10/18 22:27; Start 11/10/18 at 22:30; Stop 11/10/18 at 22:31; Status DC Sodium Chloride 1,000 ml @ 1,000 mls/hr 1X ONCE IV Last administered on 22:29; Start 11/10/18 at 22:30; Stop 11/10/18 at 23:29; Status DC Levofloxacin/ Dextrose (Levaquin Per Pharmacy) 1 each PRN DAILY PRN MC SEE COMMENTS; Start 11/10/18 at 22:30; Stop 11/11/18 at 08:54; Status DC Levofloxacin/ Dextrose 100 ml @ 100 mls/hr 1X ONCE IV Last administered on 11/10/18at 22:57; Start 11/10/18 at 22:45; Stop 11/10/18 at 23:44; Status DC Oseltamivir Phosphate (Tamiflu) 75 mg ONCE ONCE PO Last administered on 23:59; Start 11/10/18 at 23:00; Stop 11/10/18 at 23:01; Status DC Fentanyl Citrate (Fentanyl 2ml Vial) 50 mcg PRN Q1HR PRN IV PAIN; Start at 23:30; Stop 11/11/18 at 23:29; Status DC Sodium Chloride 1,000 ml @ 150 mls/hr Q6H40M IV Last administered on 11/11/18 20:23; Start 11/10/18 at 23:30; Stop 11/11/18 at 23:29; Status DC Acetaminophen (Tylenol) 650 mg PRN Q6HRS PRN PO FEVER; Start 11/10/18 at 23:30 Albuterol Sulfate (Ventolin Neb Soln) 2.5 mg Q6HRS NEB Last administered on 07:11; Start 11/11/18 at 00:00 Levofloxacin/ Dextrose 100 ml @ 100 mls/hr Q24H IV Last administered on 20:23; Start 11/11/18 at 21:00 Pantoprazole Sodium (Protonix) 40 mg DAILYAC PO Last administered on 11/12/18 08:35; Start 11/11/18 at 07:30 Enoxaparin Sodium (Lovenox 40mg Syringe) 40 mg Q24H SQ Last administered on 06:09; Start 11/11/18 at 07:00 Oseltamivir Phosphate (Tamiflu) 75 mg BID PO Last administered on 11/12/18 08: 35; Start 11/11/18 at 09:00; Stop 11/16/18 at 08:59 Lactobacillus Rhamnosus (Culturelle) 1 cap BID PO Last administered on 08:35; Start 11/11/18 at 21:00 Insulin Human Lispro (HumaLOG) 0-5 UNITS TIDWMEALS SQ ; Start 11/11/18 at 12:00 Dextrose (Dextrose 50%-Water Syringe) 12.5 gm PRN Q15MIN PRN IV SEE COMMENTS; Start 11/11/18 at 09:30 Budesonide (Pulmicort) 0.5 mg RTBID NEB ; Start 11/12/18 at 10:00 Allopurinol (Zyloprim) 300 mg DAILY PO Last administered on 11/12/18at 11:50; Start 11/12/18 at 11:00 Amlodipine Besylate (Norvasc) 10 mg DAILY PO Last administered on 11/12/18at 11: 49; Start 11/12/18 at 11:00 Hydrochlorothiazide (Hydrodiuril) 25 mg DAILY PO Last administered on at 11:47; Start 11/12/18 at 11:00 Lisinopril (Prinivil) 40 mg DAILY PO Last administered on 11/12/18at 11:49; Start 11/12/18 at 11:00 Metoprolol Succinate (Toprol Xl) 200 mg DAILY PO Last administered on at 11:50; Start 11/12/18 at 11:00 Active Scripts Active Reported Metoprolol Succinate ( Xl ) (Metoprolol Succinate) 200 Mg Tab.er.24h 1 Tab PO DAILY Hydrochlorothiazide Tablet (Hydrochlorothiazide) 25 Mg Tablet 25 Mg PO DAILY Allopurinol 300 Mg Tablet 1 Tab PO DAILY Lisinopril 40 Mg Tablet 1 Tab PO DAILY Amlodipine Besylate 10 Mg Tablet 10 Mg PO DAILY Vitals/I & O Vital Sign - Last 24 Hours 11/11/18 11/11/18 11/11/18 11/11/18 13:27 16:00 19:20 19:39 Temp 99.1 98.2 99.1 98.2 Pulse 88 83 Resp 15 19 B/P (MAP) 145/62 (89) 132/69 (90) Pulse Ox 98 95 O2 Delivery Nasal Cannula Nasal Cannula Nasal Cannula Nasal Cannula O2 Flow Rate 2.0 2.0 2.0 2.0 11/11/18 11/11/18 11/11/18 11/12/18 20:00 20:11 23:23 00:06 Temp 98.1 98.1 Pulse 86 Resp 19 B/P (MAP) 162/79 (106) Pulse Ox 95 96 O2 Delivery Nasal Cannula Nasal Cannula Nasal Cannula Nasal Cannula O2 Flow Rate 2.0 2.0 2.0 2.0 11/12/18 11/12/18 11/12/18 11/12/18 03:19 07:00 07:13 08:00 Temp 98.6 98.9 98.6 98.9 Pulse 89 89 Resp 20 22 B/P (MAP) 187/82 (117) 163/88 (113) Pulse Ox 94 94 95 O2 Delivery Nasal Cannula Nasal Cannula Nasal Cannula Nasal Cannula O2 Flow Rate 2.0 2.0 2.0 2.0 11/12/18 11/12/18 11/12/18 11/12/18 11:00 11:49 11:49 11:50 Temp 98.8 98.8 Pulse 88 88 88 88 Resp 18 B/P (MAP) 176/96 (122) 176/96 176/96 176/96 Pulse Ox 91 O2 Delivery Nasal Cannula O2 Flow Rate 2.0 Intake and Output 11/11/18 11/11/18 11/12/18 14:59 22:59 06:59 Intake Total 900 ml 506 ml Output Total 1050 ml 400 ml Balance -150 ml -400 ml 506 ml AARON PRIEST MD Nov 12, 2018 12:41
[2018-11-12 15:00] VITALS: BP 177/84
[2018-11-12] MEDS ORDERED: LABETALOL 20 MG/4 ML DISP.SYRIN. IVP PRN (15:45)
[2018-11-12] MEDS: ACETAMINOPHEN 325 MG TABLET. PO PRN ×2 (16:02→20:07)
[2018-11-12 19:00] VITALS: BP 136/67
[2018-11-12 23:00] VITALS: BP 148/42
[2018-11-13 03:09] VITALS: BP 161/75
[2018-11-13 07:00] VITALS: BP 167/79
[2018-11-13] MEDS: BUDESONIDE 0.5 MG/2 ML NEBU. NEB SCH ×2 (07:24→21:52)
[2018-11-13] MEDS: ALBUTEROL SULFATE 2.5 MG/3 ML NEBU. NEB SCH ×5 (07:24→21:56)
[2018-11-13] MEDS: INSULIN LISPRO 300 UNITS/3 ML INSULN.PEN. SQ SCH ×2 (08:00→12:00)
[2018-11-13] MEDS: ALLOPURINOL 300 MG TABLET. PO SCH (08:28)
[2018-11-13] MEDS: hydroCHLOROthiazide 25 MG TABLET PO SCH (08:28)
[2018-11-13] MEDS: LACTOBACILLUS RHAMNOSUS GG 1 CAPSULE. PO SCH ×2 (08:28→22:09)
[2018-11-13] MEDS: PANTOPRAZOLE 40 MG TABLET.DR. PO SCH (08:28)
[2018-11-13] MEDS: METOPROLOL SUCC 24HR ER 100 MG TAB.ER.24H. PO SCH (08:29)
[2018-11-13] MEDS: OSELTAMIVIR 75 MG CAPSULE PO SCH ×2 (08:29→22:09)
[2018-11-13] MEDS: amLODIPine BESYLATE 10 MG TABLET PO SCH (08:29)
[2018-11-13] MEDS: LISINOPRIL 20 MG TABLET PO SCH (08:30)
[2018-11-13] MEDS: ENOXAPARIN 40 MG/0.4 ML SYRINGE. SQ SCH (08:30)
[2018-11-13 08:32] LABS: BASO % 0 % (0-3); EOS # 0.1 x10^3/uL (0.0-0.7); EOS % 1 % (0-3); HEMATOCRIT 48.1 % (39.0-53.0); HEMOGLOBIN 15.7 g/dL (13.0-17.5); LYMPH # 1.8 x10^3/uL (1.0-4.8); LYMPH % 32 % (24-48); MEAN CORPUSCULAR HEMOGLOBIN 27 pg (25-35); MEAN CORPUSCULAR HGB CONC 33 g/dL (31-37); MEAN CORPUSCULAR VOLUME 82 fL (79-100); MONO # 0.9 x10^3/uL (0.0-1.1); MONO % 16 % (0-9); NEUT # 2.8 x10^3uL (1.8-7.7); NEUT % 51 % (31-73); PLATELET COUNT 157 x10^3/uL (140-400); RED BLOOD COUNT 5.84 x10^6/uL (4.30-5.70); RED CELL DISTRIBUTION WIDTH 14.1 % (11.5-14.5); WHITE BLOOD COUNT 5.6 x10^3/uL (4.0-11.0)
[2018-11-13 08:49] LABS: ALBUMIN 3.3 g/dL (3.4-5.0); ALBUMIN/GLOBULIN RATIO 0.8 (1.0-1.7); CALCIUM 8.8 mg/dL (8.5-10.1); CREATININE 1.1 mg/dL (0.7-1.3); GFR 80.3; POTASSIUM 3.1 mmol/L (3.5-5.1); TOTAL BILIRUBIN 1.5 mg/dL (0.2-1.0); TOTAL PROTEIN 7.7 g/dL (6.4-8.2)
--- NOTE | 2018-11-13 09:15 | NUR ---
IP: Pt is influenza + requiring droplet precautions for 5 days and 24 hours without a fever, whichever is longest.
[2018-11-13 11:00] VITALS: BP 172/80
--- NOTE | 2018-11-13 13:05 | NUR ---
SW following for discharge planning. Discussed with RN, PT recommending home at discharge. RN advised no SW needs at this time.
--- NOTE | 2018-11-13 13:24 | PDOC ---
PROGRESS NOTES Chief Complaint Chief Complaint Acute respiratory failure secondary to influenza A, possible pneumonia, ? CHF? elevated BNP Influenza A. Empiric treatment for Possible pneumonia. Obstructive sleep apnea-hypopnea syndrome. Hypertension. PLAN continue current care ECHO pending as per retail consultant reeval in the am encourage more ambulation and activity Hopefully discharge soon History of Present Illness History of Present Illness Patient clinically better. No new complaints no acute events reported overnight plan of care explaining detail Vitals Vitals Vital Signs Date Time Temp Pulse Resp B/P (MAP) Pulse Ox O2 Delivery O2 Flow Rate FiO2 11/13/18 11:00 98.1 67 18 172/80 (110) 94 Room Air 98.1 11/13/18 08:00 2.0 Physical Exam Lungs: Wheezing Labs LABS Laboratory Tests Test 11/12/18 16:50 11/12/18 20:36 11/13/18 07:31 11/13/18 08:05 Glucose (Fingerstick) 114 mg/dL (70-99) 113 mg/dL (70-99) 94 mg/dL (70-99) White Blood Count 5.6 x10^3/uL (4.0-11.0) Red Blood Count 5.84 x10^6/uL (4.30-5.70) Hemoglobin 15.7 g/dL (13.0-17.5) Hematocrit 48.1 % (39.0-53.0) Mean Corpuscular Volume 82 fL (79-100) Mean Corpuscular Hemoglobin 27 pg (25-35) Mean Corpuscular Hemoglobin Concent 33 g/dL (31-37) Red Cell Distribution Width 14.1 % (11.5-14.5) Platelet Count 157 x10^3/uL (140-400) Neutrophils (%) (Auto) 51 % (31-73) Lymphocytes (%) (Auto) 32 % (24-48) Monocytes (%) (Auto) 16 % (0-9) Eosinophils (%) (Auto) 1 % (0-3) Basophils (%) (Auto) 0 % (0-3) Neutrophils # (Auto) 2.8 x10^3uL (1.8-7.7) Lymphocytes # (Auto) 1.8 x10^3/uL (1.0-4.8) Monocytes # (Auto) 0.9 x10^3/uL (0.0-1.1) Eosinophils # (Auto) 0.1 x10^3/uL (0.0-0.7) Basophils # (Auto) 0.0 x10^3/uL (0.0-0.2) Sodium Level 140 mmol/L (136-145) Potassium Level 3.1 mmol/L (3.5-5.1) Chloride Level 99 mmol/L (98-107) Carbon Dioxide Level 28 mmol/L (21-32) Anion Gap 13 (6-14) Blood Urea Nitrogen 11 mg/dL (8-26) Creatinine 1.1 mg/dL (0.7-1.3) Estimated GFR (Cockcroft-Gault) 80.3 BUN/Creatinine Ratio 10 (6-20) Glucose Level 111 mg/dL (70-99) Calcium Level 8.8 mg/dL (8.5-10.1) Total Bilirubin 1.5 mg/dL (0.2-1.0) Aspartate Amino Transf (AST/SGOT) 24 U/L (15-37) Alanine Aminotransferase (ALT/SGPT) 30 U/L (16-63) Alkaline Phosphatase 61 U/L (46-116) Total Protein 7.7 g/dL (6.4-8.2) Albumin 3.3 g/dL (3.4-5.0) Albumin/Globulin Ratio 0.8 (1.0-1.7) Test 11/13/18 11:15 Glucose (Fingerstick) 98 mg/dL (70-99) Comment Review of Relevant I have reviewed the following items silvestre (where applicable) has been applied. Labs Laboratory Tests Test 11/11/18 20:53 11/12/18 05:35 11/12/18 07:33 11/12/18 11:44 Glucose (Fingerstick) 125 mg/dL (70-99) 98 mg/dL (70-99) 99 mg/dL (70-99) White Blood Count 9.2 x10^3/uL (4.0-11.0) Red Blood Count 5.26 x10^6/uL (4.30-5.70) Hemoglobin 14.1 g/dL (13.0-17.5) Hematocrit 43.9 % (39.0-53.0) Mean Corpuscular Volume 84 fL (79-100) Mean Corpuscular Hemoglobin 27 pg (25-35) Mean Corpuscular Hemoglobin Concent 32 g/dL (31-37) Red Cell Distribution Width 14.4 % (11.5-14.5) Platelet Count 138 x10^3/uL (140-400) Neutrophils (%) (Auto) 75 % (31-73) Lymphocytes (%) (Auto) 14 % (24-48) Monocytes (%) (Auto) 11 % (0-9) Eosinophils (%) (Auto) 0 % (0-3) Basophils (%) (Auto) 0 % (0-3) Neutrophils # (Auto) 6.9 x10^3uL (1.8-7.7) Lymphocytes # (Auto) 1.3 x10^3/uL (1.0-4.8) Monocytes # (Auto) 1.0 x10^3/uL (0.0-1.1) Eosinophils # (Auto) 0.0 x10^3/uL (0.0-0.7) Basophils # (Auto) 0.0 x10^3/uL (0.0-0.2) Sodium Level 144 mmol/L (136-145) Potassium Level 3.6 mmol/L (3.5-5.1) Chloride Level 107 mmol/L (98-107) Carbon Dioxide Level 25 mmol/L (21-32) Anion Gap 12 (6-14) Blood Urea Nitrogen 12 mg/dL (8-26) Creatinine 0.9 mg/dL (0.7-1.3) Estimated GFR (Cockcroft-Gault) 101.2 BUN/Creatinine Ratio 13 (6-20) Glucose Level 107 mg/dL (70-99) Calcium Level 8.5 mg/dL (8.5-10.1) Total Bilirubin 0.8 mg/dL (0.2-1.0) Aspartate Amino Transf (AST/SGOT) 30 U/L (15-37) Alanine Aminotransferase (ALT/SGPT) 30 U/L (16-63) Alkaline Phosphatase 61 U/L (46-116) Total Protein 7.0 g/dL (6.4-8.2) Albumin 3.1 g/dL (3.4-5.0) Albumin/Globulin Ratio 0.8 (1.0-1.7) Test 11/12/18 16:50 11/12/18 20:36 11/13/18 07:31 11/13/18 08:05 Glucose (Fingerstick) 114 mg/dL (70-99) 113 mg/dL (70-99) 94 mg/dL (70-99) White Blood Count 5.6 x10^3/uL (4.0-11.0) Red Blood Count 5.84 x10^6/uL (4.30-5.70) Hemoglobin 15.7 g/dL (13.0-17.5) Hematocrit 48.1 % (39.0-53.0) Mean Corpuscular Volume 82 fL (79-100) Mean Corpuscular Hemoglobin 27 pg (25-35) Mean Corpuscular Hemoglobin Concent 33 g/dL (31-37) Red Cell Distribution Width 14.1 % (11.5-14.5) Platelet Count 157 x10^3/uL (140-400) Neutrophils (%) (Auto) 51 % (31-73) Lymphocytes (%) (Auto) 32 % (24-48) Monocytes (%) (Auto) 16 % (0-9) Eosinophils (%) (Auto) 1 % (0-3) Basophils (%) (Auto) 0 % (0-3) Neutrophils # (Auto) 2.8 x10^3uL (1.8-7.7) Lymphocytes # (Auto) 1.8 x10^3/uL (1.0-4.8) Monocytes # (Auto) 0.9 x10^3/uL (0.0-1.1) Eosinophils # (Auto) 0.1 x10^3/uL (0.0-0.7) Basophils # (Auto) 0.0 x10^3/uL (0.0-0.2) Sodium Level 140 mmol/L (136-145) Potassium Level 3.1 mmol/L (3.5-5.1) Chloride Level 99 mmol/L (98-107) Carbon Dioxide Level 28 mmol/L (21-32) Anion Gap 13 (6-14) Blood Urea Nitrogen 11 mg/dL (8-26) Creatinine 1.1 mg/dL (0.7-1.3) Estimated GFR (Cockcroft-Gault) 80.3 BUN/Creatinine Ratio 10 (6-20) Glucose Level 111 mg/dL (70-99) Calcium Level 8.8 mg/dL (8.5-10.1) Total Bilirubin 1.5 mg/dL (0.2-1.0) Aspartate Amino Transf (AST/SGOT) 24 U/L (15-37) Alanine Aminotransferase (ALT/SGPT) 30 U/L (16-63) Alkaline Phosphatase 61 U/L (46-116) Total Protein 7.7 g/dL (6.4-8.2) Albumin 3.3 g/dL (3.4-5.0) Albumin/Globulin Ratio 0.8 (1.0-1.7) Test 11/13/18 11:15 Glucose (Fingerstick) 98 mg/dL (70-99) Laboratory Tests Test 11/12/18 16:50 11/12/18 20:36 11/13/18 07:31 11/13/18 08:05 Glucose (Fingerstick) 114 mg/dL (70-99) 113 mg/dL (70-99) 94 mg/dL (70-99) White Blood Count 5.6 x10^3/uL (4.0-11.0) Red Blood Count 5.84 x10^6/uL (4.30-5.70) Hemoglobin 15.7 g/dL (13.0-17.5) Hematocrit 48.1 % (39.0-53.0) Mean Corpuscular Volume 82 fL (79-100) Mean Corpuscular Hemoglobin 27 pg (25-35) Mean Corpuscular Hemoglobin Concent 33 g/dL (31-37) Red Cell Distribution Width 14.1 % (11.5-14.5) Platelet Count 157 x10^3/uL (140-400) Neutrophils (%) (Auto) 51 % (31-73) Lymphocytes (%) (Auto) 32 % (24-48) Monocytes (%) (Auto) 16 % (0-9) Eosinophils (%) (Auto) 1 % (0-3) Basophils (%) (Auto) 0 % (0-3) Neutrophils # (Auto) 2.8 x10^3uL (1.8-7.7) Lymphocytes # (Auto) 1.8 x10^3/uL (1.0-4.8) Monocytes # (Auto) 0.9 x10^3/uL (0.0-1.1) Eosinophils # (Auto) 0.1 x10^3/uL (0.0-0.7) Basophils # (Auto) 0.0 x10^3/uL (0.0-0.2) Sodium Level 140 mmol/L (136-145) Potassium Level 3.1 mmol/L (3.5-5.1) Chloride Level 99 mmol/L (98-107) Carbon Dioxide Level 28 mmol/L (21-32) Anion Gap 13 (6-14) Blood Urea Nitrogen 11 mg/dL (8-26) Creatinine 1.1 mg/dL (0.7-1.3) Estimated GFR (Cockcroft-Gault) 80.3 BUN/Creatinine Ratio 10 (6-20) Glucose Level 111 mg/dL (70-99) Calcium Level 8.8 mg/dL (8.5-10.1) Total Bilirubin 1.5 mg/dL (0.2-1.0) Aspartate Amino Transf (AST/SGOT) 24 U/L (15-37) Alanine Aminotransferase (ALT/SGPT) 30 U/L (16-63) Alkaline Phosphatase 61 U/L (46-116) Total Protein 7.7 g/dL (6.4-8.2) Albumin 3.3 g/dL (3.4-5.0) Albumin/Globulin Ratio 0.8 (1.0-1.7) Test 11/13/18 11:15 Glucose (Fingerstick) 98 mg/dL (70-99) Microbiology 11/11/18 Blood Culture - Preliminary, Resulted NO GROWTH AFTER 2 DAYS Medications Current Medications Ondansetron HCl (Zofran) 4 mg STK-MED ONCE .ROUTE ; Start 11/10/18 at 21:24; Stop 11/10/18 at 21:25; Status DC Ondansetron HCl (Zofran) 4 mg 1X ONCE IV Last administered on 11/10/18at 21:38; Start 11/10/18 at 21:45; Stop 11/10/18 at 21:46; Status DC Sodium Chloride 1,000 ml @ 1,000 mls/hr 1X ONCE IV Last administered on at 21:38; Start 11/10/18 at 22:00; Stop 11/10/18 at 22:59; Status DC Acetaminophen (Tylenol) 1,000 mg 1X ONCE PO Last administered on 11/10/18 21: 37; Start 11/10/18 at 22:00; Stop 11/10/18 at 22:01; Status DC Albuterol/ Ipratropium (Duoneb) 3 ml 1X ONCE NEB Last administered on 23:06; Start 11/10/18 at 22:30; Stop 11/10/18 at 22:31; Status DC Methylprednisolone Sodium Succinate (SOLU-Medrol 125MG VIAL) 125 mg 1X ONCE IV Last administered on 11/10/18 22:27; Start 11/10/18 at 22:30; Stop 11/10/18 at 22:31; Status DC Sodium Chloride 1,000 ml @ 1,000 mls/hr 1X ONCE IV Last administered on 22:29; Start 11/10/18 at 22:30; Stop 11/10/18 at 23:29; Status DC Levofloxacin/ Dextrose (Levaquin Per Pharmacy) 1 each PRN DAILY PRN MC SEE COMMENTS; Start 11/10/18 at 22:30; Stop 11/11/18 at 08:54; Status DC Levofloxacin/ Dextrose 100 ml @ 100 mls/hr 1X ONCE IV Last administered on 22:57; Start 11/10/18 at 22:45; Stop 11/10/18 at 23:44; Status DC Oseltamivir Phosphate (Tamiflu) 75 mg ONCE ONCE PO Last administered on 23:59; Start 11/10/18 at 23:00; Stop 11/10/18 at 23:01; Status DC Fentanyl Citrate (Fentanyl 2ml Vial) 50 mcg PRN Q1HR PRN IV PAIN; Start at 23:30; Stop 11/11/18 at 23:29; Status DC Sodium Chloride 1,000 ml @ 150 mls/hr Q6H40M IV Last administered on 11/11/18at 20:23; Start 11/10/18 at 23:30; Stop 11/11/18 at 23:29; Status DC Acetaminophen (Tylenol) 650 mg PRN Q6HRS PRN PO FEVER Last administered on 11/12 20:07; Start 11/10/18 at 23:30 Albuterol Sulfate (Ventolin Neb Soln) 2.5 mg Q6HRS NEB Last administered on 23:30; Start 11/11/18 at 00:00; Stop 11/13/18 at 03:56; Status DC Levofloxacin/ Dextrose 100 ml @ 100 mls/hr Q24H IV Last administered on 20:03; Start 11/11/18 at 21:00 Pantoprazole Sodium (Protonix) 40 mg DAILYAC PO Last administered on 11/13/18 08:28; Start 11/11/18 at 07:30 Enoxaparin Sodium (Lovenox 40mg Syringe) 40 mg Q24H SQ Last administered on 08:30; Start 11/11/18 at 07:00 Oseltamivir Phosphate (Tamiflu) 75 mg BID PO Last administered on 11/13/18 08: 29; Start 11/11/18 at 09:00; Stop 11/16/18 at 08:59 Lactobacillus Rhamnosus (Culturelle) 1 cap BID PO Last administered on 08:28; Start 11/11/18 at 21:00 Insulin Human Lispro (HumaLOG) 0-5 UNITS TIDWMEALS SQ ; Start 11/11/18 at 12:00 Dextrose (Dextrose 50%-Water Syringe) 12.5 gm PRN Q15MIN PRN IV SEE COMMENTS; Start 11/11/18 at 09:30 Budesonide (Pulmicort) 0.5 mg RTBID NEB Last administered on 11/13/18 07:24; Start 11/12/18 at 10:00 Allopurinol (Zyloprim) 300 mg DAILY PO Last administered on 11/13/18 08:28; Start 11/12/18 at 11:00 Amlodipine Besylate (Norvasc) 10 mg DAILY PO Last administered on 11/13/18 08: 29; Start 11/12/18 at 11:00 Hydrochlorothiazide (Hydrodiuril) 25 mg DAILY PO Last administered on 08:28; Start 11/12/18 at 11:00 Lisinopril (Prinivil) 40 mg DAILY PO Last administered on 11/13/18 08:30; Start 11/12/18 at 11:00 Metoprolol Succinate (Toprol Xl) 200 mg DAILY PO Last administered on at 08:29; Start 11/12/18 at 11:00 Labetalol HCl (Normodyne Iv Push) 20 mg PRN Q2HR PRN IVP HYPERTENSION, SEE COMMENTS Last administered on 11/12/18at 16:04; Start 11/12/18 at 15:45 Albuterol Sulfate (Ventolin Neb Soln) 2.5 mg RTQID NEB Last administered on 07/24at 07:24; Start 11/13/18 at 08:00 Active Scripts Active Reported Metoprolol Succinate ( Xl ) (Metoprolol Succinate) 200 Mg Tab.er.24h 1 Tab PO DAILY Hydrochlorothiazide Tablet (Hydrochlorothiazide) 25 Mg Tablet 25 Mg PO DAILY Allopurinol 300 Mg Tablet 1 Tab PO DAILY Lisinopril 40 Mg Tablet 1 Tab PO DAILY Amlodipine Besylate 10 Mg Tablet 10 Mg PO DAILY Vitals/I & O Vital Sign - Last 24 Hours 11/12/18 11/12/18 11/12/18 11/12/18 15:00 16:04 19:00 19:30 Temp 101.9 99.7 101.9 99.7 Pulse 80 80 71 Resp 19 B/P (MAP) 177/84 (115) 177/84 136/67 (90) Pulse Ox 90 96 O2 Delivery BiPAP/CPAP Room Air Nasal Cannula O2 Flow Rate 2.0 11/12/18 11/12/18 11/12/18 11/13/18 20:13 23:00 23:30 03:09 Temp 97.4 99.5 97.4 99.5 Pulse 72 68 Resp 19 22 B/P (MAP) 148/42 (77) 161/75 (103) Pulse Ox 95 97 O2 Delivery Room Air BiPAP/CPAP Room Air BiPAP/CPAP 11/13/18 11/13/18 11/13/18 11/13/18 07:00 07:24 08:00 08:29 Temp 98.7 98.7 Pulse 76 68 Resp 18 B/P (MAP) 167/79 (108) 161/75 Pulse Ox 94 91 O2 Delivery Room Air Room Air Nasal Cannula O2 Flow Rate 2.0 11/13/18 11/13/18 11/13/18 08:29 08:30 11:00 Temp 98.1 98.1 Pulse 68 68 67 Resp 18 B/P (MAP) 161/75 161/75 172/80 (110) Pulse Ox 94 O2 Delivery Room Air Intake and Output 11/12/18 11/12/18 11/13/18 14:59 22:59 06:59 Intake Total 120 ml 800 ml 100 ml Balance 120 ml 800 ml 100 ml AARON PRIEST MD Nov 13, 2018 13:24
--- NOTE | 2018-11-13 14:13 | CARD ---
MR#: [id number] Date of Study: 11/13/2018 Ordering Physician: COLETTE OLVERA, Referring Physician: AARON PRIEST Tech: Felix Michelel RDCS APPROVED REPORT EXAM: Two-dimensional and M-mode echocardiogram with Doppler and color Doppler. INDICATION Dyspnea 2D DIMENSIONS RVDd3.4 (2.9-3.5cm)Left Atrium(2D)4.4 (1.6-4.0cm) IVSd1.3 (0.7-1.1cm)Aortic Root(2D)2.9 (2.0-3.7cm) LVDd5.6 (3.9-5.9cm)LVOT Diameter1.6 (1.8-2.4cm) PWd1.2 (0.7-1.1cm)LVDs4.0 (2.5-4.0cm) FS (%) 28.2 %SV81.8 ml LVEF(%)53.9 (>50%) Aortic Valve AoV Peak Elias.136.9cm/sAoV VTI27.2cm AO Peak GR.7.5mmHgLVOT Peak Elias.96.6cm/s LVOT VTI 18.49cmAO Mean GR.4mmHg SHASTA (VMAX)1.22fw7OLJ (VTI)1.21cm2 Mitral Valve MV E Qzpxyzxj12.3cm/sMV DECEL YOFK510xt MV A Xshxkarb53.4cm/sMV E Mean Gr.2mmHg MV NZI25kuI/A Ratio2.1 MV A Zjzxmeaf06hqJYB (PHT)3.41cm2 TDI E/Lateral E'7.4E/Medial E'9.2 Pulmonary Valve PV Peak Ctvliljh11.9cm/sPV Peak Grad.2mmHg RVOT VTI13.8cm Tricuspid Valve TR P. Qpsmajqq433mj/sTR Peak Gr.41mmHg Pulmonary Vein S1 Rupeqyax58.2cm/sD2 Pvnmwdtf96.9cm/s LEFT VENTRICLE The left ventricle is normal size. There is borderline concentric left ventricular hypertrophy. The l eft ventricular systolic function is normal. The ejection fraction is 50-55%. There is normal LV segm ental wall motion. The left ventricular diastolic function and filling is normal for age. RIGHT VENTRICLE The right ventricle is normal size. There is normal right ventricular wall thickness. The right ventr icular systolic function is normal. ATRIA The left atrium is borderline dilated. The right atrium size is normal. The interatrial septum is int act with no evidence for an atrial septal defect or patent foramen ovale as noted on 2-D or Doppler i maging. AORTIC VALVE The aortic valve is mildly sclerotic. Doppler and Color Flow revealed no significant aortic regurgita tion. There is no significant aortic valvular stenosis. MITRAL VALVE The mitral valve is normal in structure and function. There is no mitral valve stenosis. Doppler and Color Flow revealed mild to moderate mitral regurgitation. TRICUSPID VALVE The tricuspid valve is normal in structure and function. Doppler and Color Flow revealed trace to mil d tricuspid regurgitation. The PA pressure was estimated at 43 mmHg. PULMONIC VALVE The pulmonary valve is normal in structure and function. Doppler and Color Flow revealed trace pulmon ic valvular regurgitation. GREAT VESSELS The aortic root is normal in size. Systolic flow reversal in the pulmonary veins. The IVC is normal i n size and collapses >50% with inspiration. PERICARDIAL EFFUSION There is no pleural effusion. There is no evidence of significant pericardial effusion. Critical Notification Critical Value: No <Conclusion> The left ventricle is normal size. The left ventricular systolic function is normal. The ejection fraction is 50-55%. There is borderline concentric left ventricular hypertrophy. There is no significant aortic valvular stenosis. Doppler and Color Flow revealed no significant aortic regurgitation. Doppler and Color Flow revealed mild to moderate mitral regurgitation. Doppler and Color Flow revealed trace to mild tricuspid regurgitation. The PA pressure was estimated at 43 mmHg. Signed by : Haile Boland MD Electronically Approved : 11/13/2018 14:13:09
[2018-11-13 14:56] VITALS: BP 172/82
[2018-11-13 19:00] VITALS: BP 169/80
[2018-11-13 23:00] VITALS: BP 167/74
[2018-11-14 03:00] VITALS: BP 142/78
[2018-11-14 07:00] VITALS: BP 169/80
[2018-11-14] MEDS: BUDESONIDE 0.5 MG/2 ML NEBU. NEB SCH (07:15)
[2018-11-14] MEDS: ALBUTEROL SULFATE 2.5 MG/3 ML NEBU. NEB SCH ×2 (07:15→11:19)
[2018-11-14 07:40] LABS: BASO % 0 % (0-3); EOS # 0.1 x10^3/uL (0.0-0.7); EOS % 1 % (0-3); HEMATOCRIT 47.8 % (39.0-53.0); HEMOGLOBIN 15.7 g/dL (13.0-17.5); LYMPH # 2.2 x10^3/uL (1.0-4.8); LYMPH % 41 % (24-48); MEAN CORPUSCULAR HEMOGLOBIN 27 pg (25-35); MEAN CORPUSCULAR HGB CONC 33 g/dL (31-37); MEAN CORPUSCULAR VOLUME 82 fL (79-100); MONO # 1.1 x10^3/uL (0.0-1.1); MONO % 21 % (0-9); NEUT % 38 % (31-73); PLATELET COUNT 176 x10^3/uL (140-400); RED BLOOD COUNT 5.82 x10^6/uL (4.30-5.70); RED CELL DISTRIBUTION WIDTH 14.3 % (11.5-14.5); WHITE BLOOD COUNT 5.3 x10^3/uL (4.0-11.0)
[2018-11-14 07:59] LABS: ALBUMIN 3.1 g/dL (3.4-5.0); ALBUMIN/GLOBULIN RATIO 0.7 (1.0-1.7); CALCIUM 8.9 mg/dL (8.5-10.1); CREATININE 1.1 mg/dL (0.7-1.3); GFR 80.3; POTASSIUM 3.1 mmol/L (3.5-5.1); TOTAL BILIRUBIN 1.4 mg/dL (0.2-1.0); TOTAL PROTEIN 7.6 g/dL (6.4-8.2)
[2018-11-14] MEDS: INSULIN LISPRO 300 UNITS/3 ML INSULN.PEN. SQ SCH ×2 (08:00→12:00)
[2018-11-14 11:00] VITALS: BP 140/73
[2018-11-14] MEDS: OSELTAMIVIR 75 MG CAPSULE PO SCH (11:10)
[2018-11-14] MEDS: hydroCHLOROthiazide 25 MG TABLET PO SCH (11:10)
[2018-11-14] MEDS: METOPROLOL SUCC 24HR ER 100 MG TAB.ER.24H. PO SCH (11:11)
[2018-11-14] MEDS: amLODIPine BESYLATE 10 MG TABLET PO SCH (11:11)
[2018-11-14 11:12] VITALS: BP 169/80
[2018-11-14] MEDS: LISINOPRIL 20 MG TABLET PO SCH (11:12)
[2018-11-14] MEDS: PANTOPRAZOLE 40 MG TABLET.DR. PO SCH (11:12)
[2018-11-14] MEDS: ALLOPURINOL 300 MG TABLET. PO SCH (11:12)
[2018-11-14] MEDS: ENOXAPARIN 40 MG/0.4 ML SYRINGE. SQ SCH (11:13)
[2018-11-14] MEDS: LACTOBACILLUS RHAMNOSUS GG 1 CAPSULE. PO SCH (11:18)
--- NOTE | 2018-11-14 12:50 | PDOC ---
PULMONARY PROGRESS NOTES Subjective no sob, has cough, no pain, is on 02 Vitals Vital Signs Date Time Temp Pulse Resp B/P (MAP) Pulse Ox O2 Delivery O2 Flow Rate FiO2 11/14/18 11:20 Room Air 11/14/18 11:12 79 169/80 11/14/18 11:00 98.4 20 93 98.4 11/13/18 20:30 2.0 ROS: No Nausea General: Alert, Oriented X4 HEENT: Other (nc at perrl) Lungs: Clear Cardiovascular: S1, S2 Abdomen: Soft, Non-tender Neuro Exam: Alert Extremities: No Edema Skin: Warm Labs Laboratory Tests Test 11/12/18 16:50 11/12/18 20:36 11/13/18 07:31 11/13/18 08:05 Glucose (Fingerstick) 114 mg/dL (70-99) 113 mg/dL (70-99) 94 mg/dL (70-99) White Blood Count 5.6 x10^3/uL (4.0-11.0) Red Blood Count 5.84 x10^6/uL (4.30-5.70) Hemoglobin 15.7 g/dL (13.0-17.5) Hematocrit 48.1 % (39.0-53.0) Mean Corpuscular Volume 82 fL (79-100) Mean Corpuscular Hemoglobin 27 pg (25-35) Mean Corpuscular Hemoglobin Concent 33 g/dL (31-37) Red Cell Distribution Width 14.1 % (11.5-14.5) Platelet Count 157 x10^3/uL (140-400) Neutrophils (%) (Auto) 51 % (31-73) Lymphocytes (%) (Auto) 32 % (24-48) Monocytes (%) (Auto) 16 % (0-9) Eosinophils (%) (Auto) 1 % (0-3) Basophils (%) (Auto) 0 % (0-3) Neutrophils # (Auto) 2.8 x10^3uL (1.8-7.7) Lymphocytes # (Auto) 1.8 x10^3/uL (1.0-4.8) Monocytes # (Auto) 0.9 x10^3/uL (0.0-1.1) Eosinophils # (Auto) 0.1 x10^3/uL (0.0-0.7) Basophils # (Auto) 0.0 x10^3/uL (0.0-0.2) Sodium Level 140 mmol/L (136-145) Potassium Level 3.1 mmol/L (3.5-5.1) Chloride Level 99 mmol/L (98-107) Carbon Dioxide Level 28 mmol/L (21-32) Anion Gap 13 (6-14) Blood Urea Nitrogen 11 mg/dL (8-26) Creatinine 1.1 mg/dL (0.7-1.3) Estimated GFR (Cockcroft-Gault) 80.3 BUN/Creatinine Ratio 10 (6-20) Glucose Level 111 mg/dL (70-99) Calcium Level 8.8 mg/dL (8.5-10.1) Total Bilirubin 1.5 mg/dL (0.2-1.0) Aspartate Amino Transf (AST/SGOT) 24 U/L (15-37) Alanine Aminotransferase (ALT/SGPT) 30 U/L (16-63) Alkaline Phosphatase 61 U/L (46-116) Total Protein 7.7 g/dL (6.4-8.2) Albumin 3.3 g/dL (3.4-5.0) Albumin/Globulin Ratio 0.8 (1.0-1.7) Test 11/13/18 11:15 11/13/18 16:52 11/13/18 22:09 11/14/18 06:42 Glucose (Fingerstick) 98 mg/dL (70-99) 150 mg/dL (70-99) 104 mg/dL (70-99) White Blood Count 5.3 x10^3/uL (4.0-11.0) Red Blood Count 5.82 x10^6/uL (4.30-5.70) Hemoglobin 15.7 g/dL (13.0-17.5) Hematocrit 47.8 % (39.0-53.0) Mean Corpuscular Volume 82 fL (79-100) Mean Corpuscular Hemoglobin 27 pg (25-35) Mean Corpuscular Hemoglobin Concent 33 g/dL (31-37) Red Cell Distribution Width 14.3 % (11.5-14.5) Platelet Count 176 x10^3/uL (140-400) Neutrophils (%) (Auto) 38 % (31-73) Lymphocytes (%) (Auto) 41 % (24-48) Monocytes (%) (Auto) 21 % (0-9) Eosinophils (%) (Auto) 1 % (0-3) Basophils (%) (Auto) 0 % (0-3) Neutrophils # (Auto) 2.0 x10^3uL (1.8-7.7) Lymphocytes # (Auto) 2.2 x10^3/uL (1.0-4.8) Monocytes # (Auto) 1.1 x10^3/uL (0.0-1.1) Eosinophils # (Auto) 0.1 x10^3/uL (0.0-0.7) Basophils # (Auto) 0.0 x10^3/uL (0.0-0.2) Sodium Level 141 mmol/L (136-145) Potassium Level 3.1 mmol/L (3.5-5.1) Chloride Level 100 mmol/L (98-107) Carbon Dioxide Level 29 mmol/L (21-32) Anion Gap 12 (6-14) Blood Urea Nitrogen 15 mg/dL (8-26) Creatinine 1.1 mg/dL (0.7-1.3) Estimated GFR (Cockcroft-Gault) 80.3 BUN/Creatinine Ratio 14 (6-20) Glucose Level 107 mg/dL (70-99) Calcium Level 8.9 mg/dL (8.5-10.1) Total Bilirubin 1.4 mg/dL (0.2-1.0) Aspartate Amino Transf (AST/SGOT) 25 U/L (15-37) Alanine Aminotransferase (ALT/SGPT) 31 U/L (16-63) Alkaline Phosphatase 58 U/L (46-116) Total Protein 7.6 g/dL (6.4-8.2) Albumin 3.1 g/dL (3.4-5.0) Albumin/Globulin Ratio 0.7 (1.0-1.7) Test 11/14/18 07:34 11/14/18 11:03 Glucose (Fingerstick) 104 mg/dL (70-99) 98 mg/dL (70-99) Laboratory Tests Test 11/13/18 16:52 11/13/18 22:09 11/14/18 06:42 11/14/18 07:34 Glucose (Fingerstick) 150 mg/dL (70-99) 104 mg/dL (70-99) 104 mg/dL (70-99) White Blood Count 5.3 x10^3/uL (4.0-11.0) Red Blood Count 5.82 x10^6/uL (4.30-5.70) Hemoglobin 15.7 g/dL (13.0-17.5) Hematocrit 47.8 % (39.0-53.0) Mean Corpuscular Volume 82 fL (79-100) Mean Corpuscular Hemoglobin 27 pg (25-35) Mean Corpuscular Hemoglobin Concent 33 g/dL (31-37) Red Cell Distribution Width 14.3 % (11.5-14.5) Platelet Count 176 x10^3/uL (140-400) Neutrophils (%) (Auto) 38 % (31-73) Lymphocytes (%) (Auto) 41 % (24-48) Monocytes (%) (Auto) 21 % (0-9) Eosinophils (%) (Auto) 1 % (0-3) Basophils (%) (Auto) 0 % (0-3) Neutrophils # (Auto) 2.0 x10^3uL (1.8-7.7) Lymphocytes # (Auto) 2.2 x10^3/uL (1.0-4.8) Monocytes # (Auto) 1.1 x10^3/uL (0.0-1.1) Eosinophils # (Auto) 0.1 x10^3/uL (0.0-0.7) Basophils # (Auto) 0.0 x10^3/uL (0.0-0.2) Sodium Level 141 mmol/L (136-145) Potassium Level 3.1 mmol/L (3.5-5.1) Chloride Level 100 mmol/L (98-107) Carbon Dioxide Level 29 mmol/L (21-32) Anion Gap 12 (6-14) Blood Urea Nitrogen 15 mg/dL (8-26) Creatinine 1.1 mg/dL (0.7-1.3) Estimated GFR (Cockcroft-Gault) 80.3 BUN/Creatinine Ratio 14 (6-20) Glucose Level 107 mg/dL (70-99) Calcium Level 8.9 mg/dL (8.5-10.1) Total Bilirubin 1.4 mg/dL (0.2-1.0) Aspartate Amino Transf (AST/SGOT) 25 U/L (15-37) Alanine Aminotransferase (ALT/SGPT) 31 U/L (16-63) Alkaline Phosphatase 58 U/L (46-116) Total Protein 7.6 g/dL (6.4-8.2) Albumin 3.1 g/dL (3.4-5.0) Albumin/Globulin Ratio 0.7 (1.0-1.7) Test 11/14/18 11:03 Glucose (Fingerstick) 98 mg/dL (70-99) Medications Active Scripts Medications Dose Route/Sig Max Daily Dose Days Date Category Metoprolol Succinate ( Xl ) (Metoprolol Succinate) 200 Mg Tab.er.24h 1 Tab PO DAILY 11/11/18 Reported Hydrochlorothiazide Tablet (Hydrochlorothiazide) 25 Mg Tablet 25 Mg PO DAILY 11/11/18 Reported Allopurinol 300 Mg Tablet 1 Tab PO DAILY 11/11/18 Reported Lisinopril 40 Mg Tablet 1 Tab PO DAILY 11/11/18 Reported Amlodipine Besylate 10 Mg Tablet 10 Mg PO DAILY 11/11/18 Reported Impression . IMPRESSION: 1. Acute respiratory failure secondary to influenza A, possible pneumonia, 2. Abnormal chest x-ray. 3. Influenza A. 4. Possible pneumonia. 5. Possible sepsis. 6. Obstructive sleep apnea-hypopnea syndrome. 7. Hypertension. Plan . 1. Titrate FiO2 to keep O2 saturation 92%. 2. Bronchodilator. add ICS 3. Continue Tamiflu. 4. finish Levaquin. 5. Follow up cultures. 6. Protonix for stress ulcer prophylaxis. 7. Lovenox for DVT prophylaxis. 8. Monitor respiratory status closely 10. Use CPAP during sleep. stable for CHARLES Barr MD Nov 14, 2018 12:50
[2018-11-14] MEDS ORDERED: OSEL75CA PO (13:14)
[2018-11-14] MEDS ORDERED: LEVO750T5 PO (13:14)
--- NOTE | 2018-11-14 14:10 | PDOC3 ---
Discharge Summary Visit Information Date of Admission: Nov 11, 2018 Date of Discharge: Nov 14, 2018 Admitting Diagnosis Comment: Influenza A Final Diagnosis Acute respiratory failure secondary to influenza A, CHF ruled out with preserved ejection fraction Influenza A. Empiric treatment for Possible pneumonia. Obstructive sleep apnea-hypopnea syndrome. Hypertension. Brief Hospital Course Allergies Allergies Coded Allergies Type Severity Reaction Last Updated Verified No Known Drug Allergies 11/10/18 No Vital Signs Vital Signs Date Time Temp Pulse Resp B/P (MAP) Pulse Ox O2 Delivery O2 Flow Rate FiO2 11/14/18 11:20 Room Air 11/14/18 11:12 79 169/80 11/14/18 11:00 98.4 20 93 98.4 11/13/18 20:30 2.0 Lab Results Laboratory Tests Test 11/12/18 16:50 11/12/18 20:36 11/13/18 07:31 11/13/18 08:05 Glucose (Fingerstick) 114 mg/dL (70-99) 113 mg/dL (70-99) 94 mg/dL (70-99) White Blood Count 5.6 x10^3/uL (4.0-11.0) Red Blood Count 5.84 x10^6/uL (4.30-5.70) Hemoglobin 15.7 g/dL (13.0-17.5) Hematocrit 48.1 % (39.0-53.0) Mean Corpuscular Volume 82 fL (79-100) Mean Corpuscular Hemoglobin 27 pg (25-35) Mean Corpuscular Hemoglobin Concent 33 g/dL (31-37) Red Cell Distribution Width 14.1 % (11.5-14.5) Platelet Count 157 x10^3/uL (140-400) Neutrophils (%) (Auto) 51 % (31-73) Lymphocytes (%) (Auto) 32 % (24-48) Monocytes (%) (Auto) 16 % (0-9) Eosinophils (%) (Auto) 1 % (0-3) Basophils (%) (Auto) 0 % (0-3) Neutrophils # (Auto) 2.8 x10^3uL (1.8-7.7) Lymphocytes # (Auto) 1.8 x10^3/uL (1.0-4.8) Monocytes # (Auto) 0.9 x10^3/uL (0.0-1.1) Eosinophils # (Auto) 0.1 x10^3/uL (0.0-0.7) Basophils # (Auto) 0.0 x10^3/uL (0.0-0.2) Sodium Level 140 mmol/L (136-145) Potassium Level 3.1 mmol/L (3.5-5.1) Chloride Level 99 mmol/L (98-107) Carbon Dioxide Level 28 mmol/L (21-32) Anion Gap 13 (6-14) Blood Urea Nitrogen 11 mg/dL (8-26) Creatinine 1.1 mg/dL (0.7-1.3) Estimated GFR (Cockcroft-Gault) 80.3 BUN/Creatinine Ratio 10 (6-20) Glucose Level 111 mg/dL (70-99) Calcium Level 8.8 mg/dL (8.5-10.1) Total Bilirubin 1.5 mg/dL (0.2-1.0) Aspartate Amino Transf (AST/SGOT) 24 U/L (15-37) Alanine Aminotransferase (ALT/SGPT) 30 U/L (16-63) Alkaline Phosphatase 61 U/L (46-116) Total Protein 7.7 g/dL (6.4-8.2) Albumin 3.3 g/dL (3.4-5.0) Albumin/Globulin Ratio 0.8 (1.0-1.7) Test 11/13/18 11:15 11/13/18 16:52 11/13/18 22:09 11/14/18 06:42 Glucose (Fingerstick) 98 mg/dL (70-99) 150 mg/dL (70-99) 104 mg/dL (70-99) White Blood Count 5.3 x10^3/uL (4.0-11.0) Red Blood Count 5.82 x10^6/uL (4.30-5.70) Hemoglobin 15.7 g/dL (13.0-17.5) Hematocrit 47.8 % (39.0-53.0) Mean Corpuscular Volume 82 fL (79-100) Mean Corpuscular Hemoglobin 27 pg (25-35) Mean Corpuscular Hemoglobin Concent 33 g/dL (31-37) Red Cell Distribution Width 14.3 % (11.5-14.5) Platelet Count 176 x10^3/uL (140-400) Neutrophils (%) (Auto) 38 % (31-73) Lymphocytes (%) (Auto) 41 % (24-48) Monocytes (%) (Auto) 21 % (0-9) Eosinophils (%) (Auto) 1 % (0-3) Basophils (%) (Auto) 0 % (0-3) Neutrophils # (Auto) 2.0 x10^3uL (1.8-7.7) Lymphocytes # (Auto) 2.2 x10^3/uL (1.0-4.8) Monocytes # (Auto) 1.1 x10^3/uL (0.0-1.1) Eosinophils # (Auto) 0.1 x10^3/uL (0.0-0.7) Basophils # (Auto) 0.0 x10^3/uL (0.0-0.2) Sodium Level 141 mmol/L (136-145) Potassium Level 3.1 mmol/L (3.5-5.1) Chloride Level 100 mmol/L (98-107) Carbon Dioxide Level 29 mmol/L (21-32) Anion Gap 12 (6-14) Blood Urea Nitrogen 15 mg/dL (8-26) Creatinine 1.1 mg/dL (0.7-1.3) Estimated GFR (Cockcroft-Gault) 80.3 BUN/Creatinine Ratio 14 (6-20) Glucose Level 107 mg/dL (70-99) Calcium Level 8.9 mg/dL (8.5-10.1) Total Bilirubin 1.4 mg/dL (0.2-1.0) Aspartate Amino Transf (AST/SGOT) 25 U/L (15-37) Alanine Aminotransferase (ALT/SGPT) 31 U/L (16-63) Alkaline Phosphatase 58 U/L (46-116) Total Protein 7.6 g/dL (6.4-8.2) Albumin 3.1 g/dL (3.4-5.0) Albumin/Globulin Ratio 0.7 (1.0-1.7) Test 11/14/18 07:34 11/14/18 11:03 Glucose (Fingerstick) 104 mg/dL (70-99) 98 mg/dL (70-99) Laboratory Tests Test 11/13/18 16:52 11/13/18 22:09 11/14/18 06:42 11/14/18 07:34 Glucose (Fingerstick) 150 mg/dL (70-99) 104 mg/dL (70-99) 104 mg/dL (70-99) White Blood Count 5.3 x10^3/uL (4.0-11.0) Red Blood Count 5.82 x10^6/uL (4.30-5.70) Hemoglobin 15.7 g/dL (13.0-17.5) Hematocrit 47.8 % (39.0-53.0) Mean Corpuscular Volume 82 fL (79-100) Mean Corpuscular Hemoglobin 27 pg (25-35) Mean Corpuscular Hemoglobin Concent 33 g/dL (31-37) Red Cell Distribution Width 14.3 % (11.5-14.5) Platelet Count 176 x10^3/uL (140-400) Neutrophils (%) (Auto) 38 % (31-73) Lymphocytes (%) (Auto) 41 % (24-48) Monocytes (%) (Auto) 21 % (0-9) Eosinophils (%) (Auto) 1 % (0-3) Basophils (%) (Auto) 0 % (0-3) Neutrophils # (Auto) 2.0 x10^3uL (1.8-7.7) Lymphocytes # (Auto) 2.2 x10^3/uL (1.0-4.8) Monocytes # (Auto) 1.1 x10^3/uL (0.0-1.1) Eosinophils # (Auto) 0.1 x10^3/uL (0.0-0.7) Basophils # (Auto) 0.0 x10^3/uL (0.0-0.2) Sodium Level 141 mmol/L (136-145) Potassium Level 3.1 mmol/L (3.5-5.1) Chloride Level 100 mmol/L (98-107) Carbon Dioxide Level 29 mmol/L (21-32) Anion Gap 12 (6-14) Blood Urea Nitrogen 15 mg/dL (8-26) Creatinine 1.1 mg/dL (0.7-1.3) Estimated GFR (Cockcroft-Gault) 80.3 BUN/Creatinine Ratio 14 (6-20) Glucose Level 107 mg/dL (70-99) Calcium Level 8.9 mg/dL (8.5-10.1) Total Bilirubin 1.4 mg/dL (0.2-1.0) Aspartate Amino Transf (AST/SGOT) 25 U/L (15-37) Alanine Aminotransferase (ALT/SGPT) 31 U/L (16-63) Alkaline Phosphatase 58 U/L (46-116) Total Protein 7.6 g/dL (6.4-8.2) Albumin 3.1 g/dL (3.4-5.0) Albumin/Globulin Ratio 0.7 (1.0-1.7) Test 11/14/18 11:03 Glucose (Fingerstick) 98 mg/dL (70-99) Brief Hospital Course The patient is a pleasant 68-year-old male who presented to the ER with shortness of breath. He had associated productive cough and fever. It has been occurring for several days, rated at 9/10, worse with moving. He tried taking some home meds, but that did not work. While he was in the ER, we noticed that he had a flu positive on his serology testing. He has now been admitted to the ICU where he is being examined in the room 106. It should also be noted that his chest x-ray is showing possible pneumonia. We plan to consult Pulmonary Medicine. Patient was admitted to the medical floor and he was seen in consultation by pulmonary. Patient BNP was initially elevated and there was a question whether patient had a multifactorial etiology for his hypoxemia. Patient's respiratory status improved once Tamiflu was instituted and he was also started on empiric therapy for possible underlying pneumonia as well. The patient responded well to the therapy echocardiogram did not reveal a depressed ejection fraction is results were quite benign except for an increase in his pulmonary artery pressure. Patient is on CPAP machine at home due to his obstructive sleep apnea. He was deemed appropriate for discharge from the pulmonary standpoint of view and patient's blood pressure also improved once his home medications were restarted. He was in good spirits to be dismissed home he will not require oxygen therapy moving forward and all his symptoms significantly improved I the day of discharge. All of his concerns were addressed to the best of my abilities and the signs and symptoms of alarm when to ask for medical assistance were explained to the patient acknowledged understanding of all the instructions. I encouraged him to follow up with his primary care physician 1 week Physical exam: Lungs clear to auscultation with good inspiratory effort and CVS S1-S2 regular rhythm no murmurs gallops or rubs Discharge Information Condition at Discharge: Improved Follow Up: Weeks Disposition/Orders: D/C to Home Scheduled Allopurinol (Allopurinol) 300 Mg Tablet, 1 TAB PO DAILY for gout, #30 Ref 5 ( Reported) Entered as Reported by: NELSON ESCOBAR on 11/11/181719 Last Action: Continued on 11/12/181100 by AARON PRIEST MD Amlodipine Besylate (Amlodipine Besylate) 10 Mg Tablet, 10 MG PO DAILY for hypertension, (Reported) Entered as Reported by: NELSON ESCOBAR on 11/11/181719 Last Action: Continued on 11/12/181100 by AARON PRIEST MD Hydrochlorothiazide (Hydrochlorothiazide Tablet ) 25 Mg Tablet, 25 MG PO DAILY for DIURETIC, Ref 0 (Reported) Entered as Reported by: NELSON ESCOBAR on 11/11/181719 Last Action: Continued on 11/12/181100 by AARON PRIEST MD Levofloxacin (Levofloxacin) 750 Mg Tablet, 1 TAB PO DAILY for pneumonia, #2 Prescribed by: AARON PRIEST MD on 11/14/18 131 Lisinopril (Lisinopril) 40 Mg Tablet, 1 TAB PO DAILY for hypertension, #30 Ref 5 (Reported) Entered as Reported by: NELSON ESCOBAR on 11/11/181719 Last Action: Continued on 11/12/181100 by AARON PRIEST MD Metoprolol Succinate (Metoprolol Succinate ( Xl )) 200 Mg Tab.er.24h, 1 TAB PO DAILY for htn, #30 Ref 5 (Reported) Entered as Reported by: NELSON ESCOBAR on 11/11/181719 Last Action: Converted on 11/12/181100 by AARON PRIEST MD Oseltamivir Phosphate (Tamiflu) 75 Mg Capsule, 75 MG PO BID for FLU a for 2 Days , #4 Prescribed by: AARON PRIEST MD on 11/14/18 1314 AARON PRIEST MD Nov 14, 2018 14:10
--- NOTE | 2018-11-14 15:23 | NUR ---
SW following. Discussed with RN, no SW needs. Anticipate pt will discharge home with self care today.
--- NOTE | 2018-11-14 16:35 | NUR ---
Discharge Note: GABRIELLA MURRAY [address] Discharge instructions and discharge home medications reviewed with Patient and a copy given. All questions have been answered and understanding verbalized. The following instructions and handouts were given: Pancreatitis, Diabetes. Comfort Station Attendant line was utilized to give discharge teaching regarding follow up apt, prescriptions, and to seek medical help if blood glucose> 300. Discontinued lines and drains: PIV Right Forearm removed, Catheter intact. Patient discharged to Home with Self-Care via Private Vehicle Addendum: 11/14/18 at 1639 by ANGELITO ROGERS RN RN Strike out this note. Mistaken entry
--- NOTE | 2018-11-14 16:39 | NUR ---
Discharge Note: GABRIELLA MURRAY Discharge instructions and discharge home medications reviewed with Patient and a copy given. All questions have been answered and understanding verbalized. The following instructions and handouts were given: Pneumonia, Influenza A Discontinued lines and drains: Peripheral IV, Right AC, Catheter intact. Patient discharged to Home with Self-Care via Private Vehicle
== END 2018-11-14 16:00 | disposition home or self-care (01) | DRG 871 ==
LOC: ER 20:04 → 1 WEST ICU 22:50 → 5 SOUTH 11-11 18:45
PROVIDERS: ADMIT Internal Medicine; ATTEND Internal Medicine
DX: A41.9 Sepsis, unspecified organism (principal); J96.01 Acute respiratory failure with hypoxia; J18.9 Pneumonia, unspecified organism; J11.1 Influenza due to unidentified influenza virus with other respiratory manifestations; I10 Essential (primary) hypertension; G47.33 Obstructive sleep apnea (adult) (pediatric); Z87.891 Personal history of nicotine dependence; Z82.49 Family history of ischemic heart disease and other diseases of the circulatory system
CPT/HCPCS: 36415; 36600; 71045; 80053; 82805; 82962; 83605; 83690; 83880; 84145; 84484; 85025; 85610; 87040; 87641; 87804; 93005; 93306; 94640; 94760; 96361; 96374; 99291; J1650; J1815; J1956; J2405; J2930; J3490; J7030; J7613; J7620; J7626

== ENCOUNTER 2019-08-25 11:04 | Inpatient (IN) | payer MEDICARE ==
[~2019-08-25] VITALS: Ht 170.2 cm; Wt 104.4 kg
[~2019-08-25 11:04] MED LIST: ALLO300T PO; AMLO10TA8 PO; HYDR-2145 PO; LEVO750T5 PO; LISI-130 PO; METO200T46 PO; OSEL75CA PO
[2019-08-25 11:59] LABS: BASO % 0 % (0-3); EOS % 0 % (0-3); HEMATOCRIT 43.6 % (39.0-53.0); HEMOGLOBIN 14.3 g/dL (13.0-17.5); LYMPH # 1.9 x10^3/uL (1.0-4.8); LYMPH % 10 % (24-48); MEAN CORPUSCULAR HEMOGLOBIN 27 pg (25-35); MEAN CORPUSCULAR HGB CONC 33 g/dL (31-37); MEAN CORPUSCULAR VOLUME 82 fL (79-100); MONO # 1.4 x10^3/uL (0.0-1.1); MONO % 8 % (0-9); NEUT # 14.8 x10^3/uL (1.8-7.7); NEUT % 82 % (31-73); PLATELET COUNT 215 x10^3/uL (140-400); RED BLOOD COUNT 5.33 x10^6/uL (4.30-5.70); RED CELL DISTRIBUTION WIDTH 14.3 % (11.5-14.5); WHITE BLOOD COUNT 18.1 x10^3/uL (4.0-11.0)
[2019-08-25] MEDS ORDERED: IV NORMAL SALINE 1000ML BAG 1,000 ML IV ONE (12:00)
--- NOTE | 2019-08-25 12:06 | RAD ---
PORTABLE CHEST 1V History: Seizure Comparison: November 10, 2018 Findings: No consolidation or pleural effusion. Normal heart size. No pneumothorax. Prior granulomatous disease within the chest. Impression: 1. No acute cardiopulmonary process. Electronically signed by: Brett Ventura DO (08/25/2019 12:03 PM) [facility]
[2019-08-25 12:07] LABS: PROTHROMBIN TIME PATIENT 23.1 SEC (11.7-14.0)
[2019-08-25 12:11] LABS: CALCIUM 9.3 mg/dL (8.5-10.1); CREATININE 1.6 mg/dL (0.7-1.3); POTASSIUM 3.2 mmol/L (3.5-5.1)
--- NOTE | 2019-08-25 12:14 | RAD ---
CT HEAD WO CONTRAST History: Comparison: None. Technique: Noncontrast CT imaging was performed of the head. Exposure: One or more of the following individualized dose reduction techniques were utilized for this examination: 1. Automated exposure control 2. Adjustment of the mA and/or kV according to patient size 3. Use of iterative reconstruction technique. Findings: No intracranial hemorrhage. No mass effect. No hydrocephalus. Extra-axial spaces are unremarkable. Mild foci of decreased attenuation within the hemispheric white matter, most often due to chronic microvascular ischemia. Imaged orbits are unremarkable. Mild scattered paranasal sinus mucosal thickening. Mastoid air cells are clear. No acute calvarial fracture. Impression: 1. No acute intracranial abnormality. Electronically signed by: Brett Ventura DO (08/25/2019 12:11 PM) [facility]
[2019-08-25] MEDS ORDERED: fentaNYL PF VIAL 100 MCG/2 ML VIAL IVP ONE (12:15)
[2019-08-25] MEDS ORDERED: ONDANSETRON PF 4 MG/2 ML VIAL. IV ONE (12:15)
[2019-08-25 12:17] LABS: ALBUMIN 3.1 g/dL (3.4-5.0); ALBUMIN/GLOBULIN RATIO 0.6 (1.0-1.7); MAGNESIUM 2.1 mg/dL (1.8-2.4); TOTAL BILIRUBIN 2.3 mg/dL (0.2-1.0); TOTAL PROTEIN 8.1 g/dL (6.4-8.2)
--- NOTE | 2019-08-25 12:28 | RAD ---
Examination: CT of the abdomen pelvis without contrast HISTORY: History of diarrhea for 3 days COMPARISON: None available TECHNIQUE: Axial CT images of the abdomen is performed without contrast. Coronal and sagittal reformats are performed Exposure: One or more of the following individualized dose reduction techniques were utilized for this examination: 1. Automated exposure control 2. Adjustment of the mA and/or kV according to patient size 3. Use of iterative reconstruction technique FINDINGS: Minimal bibasilar lung atelectasis. No evidence of free air identified in the abdomen. The evaluation of the solid organs is limited due to lack of IV contrast. The evaluation of bowel is limited due to lack of oral contrast. Diffuse decreased attenuation noted in the liver likely hepatic steatosis. The visualized spleen, adrenals grossly appears unremarkable the gallbladder is mildly distended. The stomach is mildly distended. The visualized pancreas grossly appears unremarkable. The small bowel is nondilated. The appendix is normal. Liquid stool identified in the colon. There is mild fat stranding identified about the rectum. Moderate inflammatory fat stranding identified about the urinary bladder and the prostate gland. No evidence of intrarenal collecting system calculi or hydronephrosis. Cystic structures identified in the right kidney with the largest measuring 1.3 cm, difficult to characterize probably cysts. Moderate aortic atherosclerosis. Moderate degenerative changes thoracolumbar spine. IMPRESSION: 1. Moderate inflammatory fat stranding identified about the urinary bladder and prostate most likely cystitis or prostatitis. Correlate with urine analysis. 2. Mild fat stranding identified about the rectum probably secondary to inflammation about the urinary bladder or proctitis. 3. Hepatic steatosis. Electronically signed by: Lewis Rios MD (08/25/2019 12:25 PM) [facility]
[2019-08-25 12:39] LABS: % ATYL 3 % (0-0); % BANDS 8 % (0-9); % LYMPHS 6 % (24-48); % MONOS 7 % (0-10); % SEGS 76 % (35-66)
[2019-08-25 12:40] LABS: PLT ESTIMATE ADEQUATE (ADEQUATE); TOXIC VACUOLATION SLIGHT
--- NOTE | 2019-08-25 13:28 | EKG ---
[facility] [address] [place] [address] Test Date: 2019-08-25 Test Time: 11:32:42 Pat Name: GABRIELLA MURRAY Department: Room: Gender: M [employer]: : 1950 Requested By: DEE DEE OSWALD Order Number: [id number] Reading MD: Measurements Intervals [place] Rate: 84 P: 90 [place]: 152 QRS: -57 QRSD: 102 T: 80 QT: 376 QTc: 447 Interpretive Statements SINUS RHYTHM VENTRICULAR PREMATURE COMPLEX(ES) LEFT ATRIAL ABNORMALITY ABNORMAL LEFT AXIS DEVIATION LOW LIMB LEAD VOLTAGE QRS(T) CONTOUR ABNORMALITY CONSISTENT WITH INFERIOR INFARCT PROBABLY OLD T ABNORMALITY IN ANTEROLATERAL LEADS ABNORMAL ECG No previous ECG available for comparison
[2019-08-25] MEDS ORDERED: cefTRIAXone IV Push 1 GM VIAL. IVP ONE (14:15)
--- NOTE | 2019-08-25 14:51 | PHYS DOC ---
Past Medical History Past Medical History: Hypertension Past Surgical History: No Surgical History Alcohol Use: Rarely Drug Use: None Adult General Chief Complaint Chief Complaint: SEIZURE HPI HPI Patient is a 69 year old male patient with history of hypertension who presents with complaining of a seizure. Patient had weakness shaking face and pulling on his back for less than 1 minute with loss of consciousness without tonic /clonic activity and was confused after waking up and complaining of headache at arrival to ER. Patient does not remember what happened to him.patient had another episode of seizure more than 2 years ago after had kidney stone without taking any medication. Patient states he is currently taking amoxicillin because of recurrent episodes of lung infection intermittently for 2 years and developedfrequent episodes of nonbloody diarrhea for the last 2 days more than 20 episodes a day and was seen at urgent care yesterday with consideration of CT for infection without starting treatment.patient denies focal neuro deficit and rated his headache at 7/10. Review of Systems Review of Systems Constitutional: Denies fever or chills [] Eyes: Denies change in visual acuity, redness, or eye pain [] HENT: Denies nasal congestion or sore throat [] Respiratory: Denies cough or shortness of breath [] Cardiovascular: No additional information not addressed in HPI [] GI: Denies abdominal pain, nausea, vomiting, bloody stools or diarrhea [] : Denies dysuria or hematuria [] Musculoskeletal: Denies back pain or joint pain [] Integument: Denies rash or skin lesions [] Neurologic: reports headache, denies focal weakness or sensory changes [] Endocrine: Denies polyuria or polydipsia [] All other systems were reviewed and found to be within normal limits, except as documented in this note. Current Medications Current Medications Current Medications Medications (Trade) Dose Ordered Sig/Taj Start Time Stop Time Status Last Admin Dose Admin Fentanyl Citrate (Fentanyl 2ml Vial) 50 mcg 1X ONCE 08/25/19 12:15 08/25/19 12:16 DC 08/25/19 12:12 50 MCG Ondansetron HCl (Zofran) 4 mg 1X ONCE 08/25/19 12:15 08/25/19 12:16 DC 08/25/19 12:11 4 MG Sodium Chloride 1,000 ml @ 1,000 mls/hr 1X ONCE 08/25/19 12:00 08/25/19 12:59 DC 08/25/19 12:02 1,000 MLS/HR Allergies Allergies Allergies Coded Allergies Type Severity Reaction Last Updated Verified No Known Drug Allergies 11/10/18 No Physical Exam Physical Exam Constitutional: Well developed, well nourished, mild distress, non-toxic appearance. [] HENT: Normocephalic, atraumatic, bilateral external ears normal, oropharynx moist, no oral exudates, nose normal. [] Eyes: PERRLA, EOMI, conjunctiva normal, no discharge. [] Neck: Normal range of motion, no tenderness, supple, no stridor. [] Cardiovascular:Heart rate regular rhythm, no murmur [] Lungs & Thorax: Bilateral breath sounds clear to auscultation [] Abdomen: Bowel sounds normal, soft, no tenderness, no masses, no pulsatile masses. [] Skin: Warm, dry, no erythema, no rash. [] Back: No tenderness, no CVA tenderness. [] Extremities: No tenderness, no cyanosis, no clubbing, ROM intact, no edema. [] Neurologic: Alert and oriented X 3, normal motor function, normal sensory functi on, no focal deficits noted. [] Psychologic: Affect normal, judgement normal, mood normal. [] Current Patient Data Vital Signs Vital Signs Date Time Temp Pulse Resp B/P (MAP) Pulse Ox O2 Delivery O2 Flow Rate FiO2 08/25/19 11:08 97.9 87 18 140/65 (90) 95 Room Air 97.9 Lab Values Laboratory Tests Test 08/25/19 11:45 White Blood Count 18.1 x10^3/uL (4.0-11.0) H Red Blood Count 5.33 x10^6/uL (4.30-5.70) Hemoglobin 14.3 g/dL (13.0-17.5) Hematocrit 43.6 % (39.0-53.0) Mean Corpuscular Volume 82 fL (79-100) Mean Corpuscular Hemoglobin 27 pg (25-35) Mean Corpuscular Hemoglobin Concent 33 g/dL (31-37) Red Cell Distribution Width 14.3 % (11.5-14.5) Platelet Count 215 x10^3/uL (140-400) Neutrophils (%) (Auto) 82 % (31-73) H Lymphocytes (%) (Auto) 10 % (24-48) L Monocytes (%) (Auto) 8 % (0-9) Eosinophils (%) (Auto) 0 % (0-3) Basophils (%) (Auto) 0 % (0-3) Neutrophils # (Auto) 14.8 x10^3/uL (1.8-7.7) H Lymphocytes # (Auto) 1.9 x10^3/uL (1.0-4.8) Monocytes # (Auto) 1.4 x10^3/uL (0.0-1.1) H Eosinophils # (Auto) 0.0 x10^3/uL (0.0-0.7) Basophils # (Auto) 0.0 x10^3/uL (0.0-0.2) Segmented Neutrophils % 76 % (35-66) H Band Neutrophils % 8 % (0-9) Lymphocytes % 6 % (24-48) L Atypical Lymphocytes % (Manual) 3 % (0-0) H Monocytes % 7 % (0-10) Toxic Vacuolation Slight Platelet Estimate Adequate (ADEQUATE) Large Platelets Few Prothrombin Time 23.1 SEC (11.7-14.0) H Prothrombin Time INR 2.1 (0.8-1.1) H Sodium Level 135 mmol/L (136-145) L Potassium Level 3.2 mmol/L (3.5-5.1) L Chloride Level 95 mmol/L (98-107) L Carbon Dioxide Level 28 mmol/L (21-32) Anion Gap 12 (6-14) Blood Urea Nitrogen 15 mg/dL (8-26) Creatinine 1.6 mg/dL (0.7-1.3) H Estimated GFR (Cockcroft-Gault) 52.0 BUN/Creatinine Ratio 9 (6-20) Glucose Level 137 mg/dL (70-99) H Lactic Acid Level 3.0 mmol/L (0.4-2.0) H Calcium Level 9.3 mg/dL (8.5-10.1) Magnesium Level 2.1 mg/dL (1.8-2.4) Total Bilirubin 2.3 mg/dL (0.2-1.0) H Aspartate Amino Transferase (AST) 15 U/L (15-37) Alanine Aminotransferase (ALT) 15 U/L (16-63) L Alkaline Phosphatase 85 U/L (46-116) Creatine Kinase 162 U/L (39-308) Troponin I Quantitative < 0.017 ng/mL (0.000-0.055) Total Protein 8.1 g/dL (6.4-8.2) Albumin 3.1 g/dL (3.4-5.0) L Albumin/Globulin Ratio 0.6 (1.0-1.7) L Lipase 124 U/L (73-393) Laboratory Tests 08/25/19 11:45 Laboratory Tests 08/25/19 11:45 EKG EKG EKG interpreted by me. EKG at 1132 showed normal sinus rhythm at rate of 84, PVCs, left atrial abnormalities,poor R wave practicing in anteroseptal leads, no acute ST-T wave elevation. Radiology/Procedures Radiology/Procedures [][facility] [address] [place] [address] IMAGING REPORT Signed PATIENT: GABRIELLA MURRAY ACCOUNT: [id number] : 1950 LOCATION: ER AGE: 69 SEX: M EXAM STATUS: REG ER ORD. PHYSICIAN: DEE DEE OSWALD MD REASON: diarrhea x 3 days PROCEDURE: CT ABDOMEN PELVIS WO CONTRAST Examination: CT of the abdomen pelvis without contrast HISTORY: History of diarrhea for 3 days COMPARISON: None available TECHNIQUE: Axial CT images of the abdomen is performed without contrast. Coronal and sagittal reformats are performed Exposure: One or more of the following individualized dose reduction techniques were utilized for this examination: 1. Automated exposure control 2. Adjustment of the mA and/or kV according to patient size 3. Use of iterative reconstruction technique FINDINGS: Minimal bibasilar lung atelectasis. No evidence of free air identified in the abdomen. The evaluation of the solid organs is limited due to lack of IV contrast. The evaluation of bowel is limited due to lack of oral contrast. Diffuse decreased attenuation noted in the liver likely hepatic steatosis. The visualized spleen, adrenals grossly appears unremarkable the gallbladder is mildly distended. The stomach is mildly distended. The visualized pancreas grossly appears unremarkable. The small bowel is nondilated. The appendix is normal. Liquid stool identified in the colon. There is mild fat stranding identified about the rectum. Moderate inflammatory fat stranding identified about the urinary bladder and the prostate gland. No evidence of intrarenal collecting system calculi or hydronephrosis. Cystic structures identified in the right kidney with the largest measuring 1.3 cm, difficult to characterize probably cysts. Moderate aortic atherosclerosis. Moderate degenerative changes thoracolumbar spine. IMPRESSION: 1. Moderate inflammatory fat stranding identified about the urinary bladder and prostate most likely cystitis or prostatitis. Correlate with urine analysis. 2. Mild fat stranding identified about the rectum probably secondary to inflammation about the urinary bladder or proctitis. 3. Hepatic steatosis. Electronically signed by: Lewis Rios MD (08/25/2019 12:25 PM) [facility] DICTATED and SIGNED BY: LEWIS RIOS MD DATE: 08/25/[address] [address] IMAGING REPORT Signed PATIENT: GABRIELLA MURRAY ACCOUNT: [id number] : 1950 LOCATION: ER AGE: 69 SEX: M EXAM STATUS: PRE ER ORD. PHYSICIAN: DEE DEE OSWALD MD REASON: seizure PROCEDURE: PORTABLE CHEST 1V PORTABLE CHEST 1V History: Seizure Comparison: November 10, 2018 Findings: No consolidation or pleural effusion. Normal heart size. No pneumothorax. Prior granulomatous disease within the chest. Impression: 1. No acute cardiopulmonary process. Electronically signed by: Brett Ventura DO (08/25/2019 12:03 PM) [facility] DICTATED and SIGNED BY: BRETT VENTURA DO DATE: 08/25/19 1203 [facility] [address] [place], [place] [id number] IMAGING REPORT Signed PATIENT: GABRIELLA MURRAY ACCOUNT: [id number] : 1950 LOCATION: ER AGE: 69 SEX: M EXAM STATUS: PRE ER ORD. PHYSICIAN: DEE DEE OSWALD MD REASON: seizure PROCEDURE: CT HEAD WO CONTRAST CT HEAD WO CONTRAST History: Comparison: None. Technique: Noncontrast CT imaging was performed of the head. Exposure: One or more of the following individualized dose reduction techniques were utilized for this examination: 1. Automated exposure control 2. Adjustment of the mA and/or kV according to patient size 3. Use of iterative reconstruction technique. Findings: No intracranial hemorrhage. No mass effect. No hydrocephalus. Extra-axial spaces are unremarkable. Mild foci of decreased attenuation within the hemispheric white matter, most often due to chronic microvascular ischemia. Imaged orbits are unremarkable. Mild scattered paranasal sinus mucosal thickening. Mastoid air cells are clear. No acute calvarial fracture. Impression: 1. No acute intracranial abnormality. Electronically signed by: Brett Ventura DO (08/25/2019 12:11 PM) [facility] DICTATED and SIGNED BY: BRETT VENTURA DO DATE: 08/25/19 1211 Course & Med Decision Making Course & Med Decision Making Pertinent Labs and Imaging studies reviewed. (See chart for details) Evaluation of patient in ER showed 69-year-old male patient with remote history of seizures brought in by family members because of a seizure that last less than 1 minute.patient also has had recent history of diarrhea and long infection. Patient had white count of 18,000 and lactic acid of 2.0 to be elevated because of hypoxia during seizure1 dose of Rocephin was given. Patient also treated with IV fluid because of diarrhea and dehydration without tachycardia or hypotension. Patient requiring admission for further evaluation and treatment. Discussed with Dr. Colvin who is in agreement with admission. Discussed findings and plan with patient and family, who acknowledge understanding and agreement. Dragon Disclaimer Dragon Disclaimer This electronic medical record was generated, in whole or in part, using a voice recognition dictation system. Departure Departure Impression: Primary Impression: Seizure Additional Impressions: Elevated lactic acid level Diarrhea Hypokalemia Elevated bilirubin Leukocytosis Disposition: ADMITTED INPATIENT (at 1441) Admitting Physician: [facility] (Dr. Colvin accepted admission at 1440) Condition: IMPROVED Referrals: VIVEK MOSELEY MD (PCP) Critical Care Time Critical care time was 65 minutes exclusive of procedures. Date and Time of Reassessment Date: Aug 25, 2019 Time: 14:00 Fluid Challenge Is the fluid challenge complet: No IBW Target Volume Used: No BMI > 30: Yes Vital Signs Vital Signs: Vital Signs Date Time Temp Pulse Resp B/P (MAP) Pulse Ox O2 Delivery O2 Flow Rate FiO2 08/25/19 11:08 97.9 87 18 140/65 (90) 95 Room Air 97.9 Temperature Source: Oral Respirations Respiratory Effort: Normal Respiratory Pattern: Normal Cardiovascular Pulse Rhythm: Regular Heart: Nml rate, reg. rhythm Lung Sounds Breath Sounds: Clear Capillary Refil Capillary Refill: Rt Hand < 3 seconds Peripheral Pulse Pulse Location: Radial Pulse Strength: Normal (2+) Pulse Assessment Method: NIBP Integumentary Skin Moisture: Dry Problem Qualifiers Additional Impressions: Diarrhea Diarrhea type: unspecified type Qualified Codes: R19.7 - Diarrhea, unspecified DEE DEE OSWALD MD Aug 25, 2019 14:50
[2019-08-25] MEDS ORDERED: POTASSIUM CHLORIDE 20 MEQ TABLET.ER. PO ONE (15:00)
[2019-08-25] MEDS: IV NORMAL SALINE 1000ML BAG 1,000 ML IV SCH ×2 (15:16→22:51)
[2019-08-25 15:30] VITALS: BP 150/78
[2019-08-25] MEDS: ACETAMINOPHEN 325 MG TABLET. PO PRN ×2 (17:17→23:18)
[2019-08-25] MEDS ORDERED: VANCOMYCIN PER PHARMACY MC PRN (17:45)
[2019-08-25] MEDS ORDERED: PIP/TAZO PER PHARMACY MC PRN (17:45)
[2019-08-25] MEDS: PIPERACILLIN/TAZOBACTAM 3.375 GM in IV NORMAL SALINE 50ML 50 ML IV SCH ×2 (17:51→23:19)
[2019-08-25] MEDS ORDERED: VANCOMYCIN 2 GM in IV NORMAL SALINE 500ML BAG 500 ML IV ONE (18:30)
--- NOTE | 2019-08-25 19:22 | NUR ---
Pharmacy Vancomycin Dosing Note S: Consulted to monitor and dose vancomycin started 08/25/19. O: GABRIELLA MURRAY is a 69 year old M for Empiric treatment Other Antibiotics: ZOSYN LABS: Last BUN: 15 Last Creatinine: 1.6 Creatinine Clearance: 49 mL/min Last WBC: 18.1 Tmax (past 24 hours): 100.1 Microbiology: BLOOD CX PENDING Vancomycin Dosing: Dosing Weight: Actual Target Trough: 10-20 A: Based on: VANCO dosing guidelines P: 1. Begin Vancomycin 2000mg LOAD dose, then 1500 mg IV q24h 2. Follow up Trough level on 08/27/19 at 1730 3. Pharmacy will continue to monitor, follow and adjust therapy as needed. ELADIO PÉREZ, [facility], 08/25/19 0882
[2019-08-25 19:25] VITALS: BP 126/56
--- NOTE | 2019-08-25 20:23 | HP ---
ADMIT DATE: 08/25/2019 CHIEF COMPLAINT: Decreased appetite, lightheadedness, seizure. HISTORY OF PRESENT ILLNESS: The patient is a pleasant 69-year-old male, who presented with lightheadedness and weakness and developed a seizure. He had shaking in his face and weakness. He felt a pulling on his back for about a minute without loss of consciousness. He was a little confused. He had a headache. Really does not remember what happened to him. He did have a seizure 2 years ago. I discussed the case with ER physician. We are going to admit the patient to the telemetry floor. The patient did arrive to the floor a while ago and now since then, he has developed a fever as well. I talked to the nurse, we have ordered some IV antibiotics, including vancomycin and Zosyn. PAST MEDICAL HISTORY: Previous seizures, hypertension, gout. ALLERGIES: None. FAMILY HISTORY: Hyperlipidemia. SOCIAL HISTORY: He does not drink, smoke or take drugs. He is retired. MEDICATIONS: Reviewed. He is on metoprolol, amlodipine, lisinopril, hydrochlorothiazide, and allopurinol. REVIEW OF SYSTEMS: REVIEW OF SYSTEMS: GENERAL: No history of weight change, weakness or fevers. SKIN: No bruising, hair changes or rashes. EYES: No blurred, double or loss of vision. NOSE AND THROAT: No history of nosebleeds, hoarseness or sore throat. HEART: No history of palpitations, chest pain or shortness of breath on exertion. LUNGS: Denies cough, hemoptysis, wheezing or shortness of breath. GASTROINTESTINAL: Denies changes in appetite, nausea, vomiting, diarrhea or constipation. GENITOURINARY: No history of frequency, urgency, hesitancy or nocturia. NEUROLOGIC: He complains of weakness. PSYCHIATRIC: No history of panic, anxiety or depression. ENDOCRINE: No history of heat or cold intolerance, polyuria or polydipsia. EXTREMITIES: Denies muscle weakness, joint pain, pain on walking or stiffness. PHYSICAL EXAMINATION: VITALS: Within normal limits and are stable. GENERAL: No apparent distress. Alert and oriented. HEENT: Normal cephalic atraumatic, external auditory canals are patent. EYES: Extraocular muscles are intact, pupils are equally round and reactive to light and accommodation. MUSKULOSKELETAL: Well developed, well nourished, good range of motion. ENDOCRINE: No thyromegaly was palpated. LYMPHATICS: No cervical chain or axillary nodes were noted. HEMATOPOIETIC: No bruising. NECK: Supple, no JVD, no thyromegaly was noted. LUNGS: Clear to auscultation in all lung ortiz without rhonchi or wheezing. HEART: RRR, S1, S2 present. Peripheral pulses intact, no obvious murmurs were noted. ABDOMEN: Soft, nontender. Positive bowel sounds no organomegaly, normal bowel sounds. EXTREMITIES: Without any cyanosis, clubbing, or edema. Pedal pulses intact, Homans sign is negative. NEUROLOGIC: Normal speech, normal tone. A & O x3, moves all extremities, no obvious focal deficits. PSYCHIATRIC: Normal affect, normal mood. Stable. SKIN: No ulcerations or rashes, good skin turgor, no jaundice. VASCULAR: Good capillary refill, neurovascular bundle appears to be intact. LABORATORY DATA: White count 18, hemoglobin 14, platelets 215. Electrolytes: Sodium 135, potassium 3.2, chloride 95, bicarb 28, BUN 15, creatinine 1.6, glucose 137. Lactic acid 3, we repeated, it is now down to 1.4. Total bili is 2.3. Troponin is 0. Albumin 3.1. INR is 2.1. ASSESSMENT AND PLAN: Seizure, coagulopathy, leukocytosis, lactic acidosis, hypokalemia, hyponatremia, acute renal failure, malnutrition. The patient is being admitted. We will consult Neurology. Start empiric IV antibiotics with Zosyn and vancomycin, which we gave him like a dose an hour ago. We will correct his electrolytes, consult Nephrology. Frequent labs, PT, OT, DVT prophylaxis. Full code. PROGNOSIS: Guarded. TOTAL TIME: 32 minutes. JOHN HEREDIA DO DR: LÓPEZ/diana JOB#: [id number] / [id number]
[2019-08-25 23:47] VITALS: BP 144/60
[2019-08-26 01:03] LABS: BILIRUBIN,URINE NEGATIVE (NEG); CLARITY,URINE CLEAR; COLOR,URINE AMBER; NITRITE,URINE NEGATIVE (NEG); PROTEIN,URINE NEGATIVE (NEG-TRACE)
[2019-08-26 01:32] LABS: BACTERIA,URINE FEW /HPF (0-FEW); RBC,URINE OCC /HPF (0-2); WBC,URINE TNTC /HPF (0-4)
[2019-08-26 01:33] LABS: SQUAMOUS EPITHELIAL CELL,UR OCC /LPF
[2019-08-26 03:35] VITALS: BP 127/57
[2019-08-26] MEDS: PIPERACILLIN/TAZOBACTAM 3.375 GM in IV NORMAL SALINE 50ML 50 ML IV SCH ×3 (05:13→17:42)
[2019-08-26] MEDS: IV NORMAL SALINE 1000ML BAG 1,000 ML IV SCH (05:16)
[2019-08-26 07:36] VITALS: BP 150/66
--- NOTE | 2019-08-26 08:29 | CONS ---
DATE OF CONSULTATION: 08/25/2019 REFERRING PHYSICIAN: John Colvin DO REASON FOR CONSULTATION: Possible seizure. HISTORY OF PRESENT ILLNESS: The patient is a pleasant 69-year-old man who was eating breakfast today around 11:30 when he had a spell. He had gotten up around 8:30 in the morning. Around the table was his as well as his 2 grandchildren. He was feeling somewhat lightheaded and dizzy. This is the last he remembers. According to history from Dr. Colvin as well as the Emergency Room, he developed weakness and had some shaking in his face, but no generalized tonic-clonic activity. The spell lasted about a minute. It sounds as if they had him lie down and then he woke up slightly confused. He had a similar spell perhaps 20 years ago. He has not had any further spells. When he arrived on the floor, he was febrile. Antibiotics have been initiated. He does not have any current complaints. PAST MEDICAL HISTORY: 1. Hypertension. 2. Gout. 3. Previous episode of loss of consciousness. ALLERGIES: No known allergies to drugs. MEDICATIONS PRIOR TO ADMISSION: Allopurinol 300 mg, amlodipine 10 mg, hydrochlorothiazide 25 mg, lisinopril 40 mg and metoprolol 200 mg extended release. FAMILY HISTORY: Pertinent for hyperlipidemia. SOCIAL HISTORY: He does not smoke tobacco, drink alcohol or use recreational drugs. He is retired from working in a [employer]. He had one child and has two grandsons. They visit with him often. REVIEW OF SYSTEMS: He has a slight headache in the back of his head. He has had no change of vision or hearing. He has not had any cognitive loss. He has had no difficulty with chewing or swallowing. He does not complain of nose or sinus difficulty. He has not had shortness of breath, chest or abdominal pain. He has had some recent diarrhea. He has had recent fever. There has been no rash. He has had no genitourinary complaint. He does not complain of any numbness or weakness. He does not have any psychiatric concerns. He does not complain of easy bruising or bleeding. He occasionally has swelling. PHYSICAL EXAMINATION: VITAL SIGNS: The blood pressure was 126/56, pulse 83, respirations 18, temperature 98.9 degrees Fahrenheit orally. Oximetry was 93% on room air. His weight was 104.3 kilograms, height 67 inches with a calculated body mass index of 36. GENERAL: He was alert, awake and cooperative. Speech was fluent and clear. He had a good fund of recent and remote knowledge. Attention and concentration was intact. He appeared well groomed and well nourished. He was fully oriented. NEUROLOGIC: Examination of the cranial nerves revealed visual ortiz were full to confrontation. Extraocular movements were intact. The eyes were conjugate. Pursuit movements were smooth and saccadic eye movements were without dysmetria. Pupils were 3 mm and reactive. Funduscopic exam did not reveal papilledema, exudate or hemorrhage. Facial sensation was intact bilaterally. The muscles of mastication and facial expression were powerful symmetrically. Hearing was intact to finger rub. The palate arched symmetrically and the tongue was midline with full range of motion. Sternocleidomastoid and trapezius were powerful. Muscle bulk and tone was normal. There was no arm drift or leg drift. Power was full and symmetric in the upper and lower extremities. Reflexes were diminished throughout. Toes were not upgoing. Coordination testing with [id number], [id number], fine motor and rapid alternating movements was well performed. Sensory examination was intact to pain, light touch, proprioception, graphesthesia, cold thermal and vibration. There was no extinction to double simultaneous stimulation. Gait was normal based and steady. He is able to heel, toe, and tandem walk. Tandem walk was a challenge for him. Romberg stance was negative. Auscultation of the carotid arteries did not reveal a bruit. Heart rhythm was irregular with occasional pauses. There was no edema or cyanosis. Peripheral pulses were symmetric in hands and feet. There was no edema or cyanosis. REVIEW OF LABORATORY DATA: CBC was performed 08/25/2019 and revealed an elevated white blood cell count of 18.1. The hemoglobin, hematocrit and platelet counts were normal. Chemistries were performed 08/25/2019. Sodium was low at 135 and potassium low at 3.2 with chloride low at 95. CO2 was normal. BUN was normal. Creatinine was elevated to 1.6 with a GFR that calculated at 52. Glucose random was elevated to 137. Lactic acid was initially 3, but came down to 1.4. Calcium and magnesium were normal. Total bilirubin was elevated at 2.3. AST and ALT were not elevated. Alkaline phosphatase was not elevated. CPK and troponin were not elevated. Total protein was normal, but albumin was low at 3.1. Lipase was not elevated. PT/INR was elevated to 2.1. Diagnostic investigation revealed a CT scan of the head from 08/25/2019, which revealed no acute intracranial abnormality. There was mild small vessel disease. Chest x-ray, single view was performed on 08/25/2019 revealed no acute cardiopulmonary process. CT scan of the abdomen and pelvis was performed without contrast on 08/25/2019. This revealed moderate inflammatory fat stranding identified about the urinary bladder and prostate, most likely cystitis or prostatitis. There was mild fat stranding identified about the rectum, possibly secondary to inflammation about the urinary bladder or proctitis. There was hepatic steatosis. IMPRESSION: The patient is a 69-year-old man who was feeling lightheaded while having breakfast this morning and had an episode of syncope. He had some shaking of his face, but not his body. He woke up when he was placed flat. I am not convinced this is actually seizure activity, but may more likely be that he had syncope from an episode of hypotension, possibly from underlying infection. He does appear to have some liver dysfunction with elevated PT/INR and some elevated liver enzymes. He appears to potentially have some bladder infection, but it does not look like we have obtained a urinalysis. He has been started on antibiotics empirically. RECOMMENDATIONS: I do not feel compelled enough that this was seizure to initiate an anticonvulsant. I feel that this was likely a spell related to extenuating circumstances from underlying infection. If further spells arise, we can reconsider this decision. At this point, I do not feel he needs further imaging of his head or an EEG. ARTIE NEAL MD DR: ARASH/diana JOB#: [id number] / [id number] JOHN Lozano DO ____, ____
[2019-08-26] MEDS: ALLOPURINOL 300 MG TABLET. PO SCH (09:27)
[2019-08-26] MEDS: METOPROLOL SUCC 24HR ER 100 MG TAB.ER.24H. PO SCH (09:27)
[2019-08-26] MEDS: hydroCHLOROthiazide 25 MG TABLET PO SCH (09:27)
[2019-08-26] MEDS: LISINOPRIL 20 MG TABLET PO SCH (09:27)
[2019-08-26] MEDS: amLODIPine BESYLATE 10 MG TABLET PO SCH (09:27)
--- NOTE | 2019-08-26 09:45 | PDOC ---
PROGRESS NOTES History of Present Illness History of Present Illness ASSESSMENT AND PLAN: Seizure, coagulopathy, leukocytosis, lactic acidosis, hypokalemia, hyponatremia, acute renal failure, malnutrition. admitted. consult Neurology. empiric IV antibiotics Zosyn and vancomycin, consult Nephrology. Frequent labs, PT, OT, DVT prophylaxis. Full code. AVOID ANTICONVULSANTS at this time 08/26 CONTINUE iv vanc and Zosyn f/u cultures C. diff pending Vitals Vitals Vital Signs Date Time Temp Pulse Resp B/P (MAP) Pulse Ox O2 Delivery O2 Flow Rate FiO2 08/26/19 09:27 94 150/66 08/26/19 07:36 98.6 18 94 Room Air 98.6 Physical Exam General: Cooperative Lungs: Clear Labs LABS ISTORY: History of diarrhea for 3 days COMPARISON: None available TECHNIQUE: Axial CT images of the abdomen is performed without contrast. Coronal and sagittal reformats are performed Exposure: One or more of the following individualized dose reduction techniques were utilized for this examination: 1. Automated exposure control 2. Adjustment of the mA and/or kV according to patient size 3. Use of iterative reconstruction technique FINDINGS: Minimal bibasilar lung atelectasis. No evidence of free air identified in the abdomen. The evaluation of the solid organs is limited due to lack of IV contrast. The evaluation of bowel is limited due to lack of oral contrast. Diffuse decreased attenuation noted in the liver likely hepatic steatosis. The visualized spleen, adrenals grossly appears unremarkable the gallbladder is mildly distended. The stomach is mildly distended. The visualized pancreas grossly appears unremarkable. The small bowel is nondilated. The appendix is normal. Liquid stool identified in the colon. There is mild fat stranding identified about the rectum. Moderate inflammatory fat stranding identified about the urinary bladder and the prostate gland. No evidence of intrarenal collecting system calculi or hydronephrosis. Cystic structures identified in the right kidney with the largest measuring 1.3 cm, difficult to characterize probably cysts. Moderate aortic atherosclerosis. Moderate degenerative changes thoracolumbar spine. IMPRESSION: 1. Moderate inflammatory fat stranding identified about the urinary bladder and prostate most likely cystitis or prostatitis. Correlate with urine analysis. 2. Mild fat stranding identified about the rectum probably secondary to inflammation about the urinary bladder or proctitis. 3. Hepatic steatosis. Electronically signed by: Lewis Rios MD (08/25/2019 12:25 PM) [facility] Laboratory Tests Test 08/25/19 11:45 08/25/19 15:07 08/26/19 00:01 White Blood Count 18.1 x10^3/uL (4.0-11.0) Red Blood Count 5.33 x10^6/uL (4.30-5.70) Hemoglobin 14.3 g/dL (13.0-17.5) Hematocrit 43.6 % (39.0-53.0) Mean Corpuscular Volume 82 fL (79-100) Mean Corpuscular Hemoglobin 27 pg (25-35) Mean Corpuscular Hemoglobin Concent 33 g/dL (31-37) Red Cell Distribution Width 14.3 % (11.5-14.5) Platelet Count 215 x10^3/uL (140-400) Neutrophils (%) (Auto) 82 % (31-73) Lymphocytes (%) (Auto) 10 % (24-48) Monocytes (%) (Auto) 8 % (0-9) Eosinophils (%) (Auto) 0 % (0-3) Basophils (%) (Auto) 0 % (0-3) Neutrophils # (Auto) 14.8 x10^3/uL (1.8-7.7) Lymphocytes # (Auto) 1.9 x10^3/uL (1.0-4.8) Monocytes # (Auto) 1.4 x10^3/uL (0.0-1.1) Eosinophils # (Auto) 0.0 x10^3/uL (0.0-0.7) Basophils # (Auto) 0.0 x10^3/uL (0.0-0.2) Segmented Neutrophils % 76 % (35-66) Band Neutrophils % 8 % (0-9) Lymphocytes % 6 % (24-48) Atypical Lymphocytes % (Manual) 3 % (0-0) Monocytes % 7 % (0-10) Toxic Vacuolation Slight Platelet Estimate Adequate (ADEQUATE) Large Platelets Few Prothrombin Time 23.1 SEC (11.7-14.0) Prothromb Time International Ratio 2.1 (0.8-1.1) Sodium Level 135 mmol/L (136-145) Potassium Level 3.2 mmol/L (3.5-5.1) Chloride Level 95 mmol/L (98-107) Carbon Dioxide Level 28 mmol/L (21-32) Anion Gap 12 (6-14) Blood Urea Nitrogen 15 mg/dL (8-26) Creatinine 1.6 mg/dL (0.7-1.3) Estimated GFR (Cockcroft-Gault) 52.0 BUN/Creatinine Ratio 9 (6-20) Glucose Level 137 mg/dL (70-99) Lactic Acid Level 3.0 mmol/L (0.4-2.0) 1.4 mmol/L (0.4-2.0) Calcium Level 9.3 mg/dL (8.5-10.1) Magnesium Level 2.1 mg/dL (1.8-2.4) Total Bilirubin 2.3 mg/dL (0.2-1.0) Aspartate Amino Transf (AST/SGOT) 15 U/L (15-37) Alanine Aminotransferase (ALT/SGPT) 15 U/L (16-63) Alkaline Phosphatase 85 U/L (46-116) Creatine Kinase 162 U/L (39-308) Troponin I Quantitative < 0.017 ng/mL (0.000-0.055) Total Protein 8.1 g/dL (6.4-8.2) Albumin 3.1 g/dL (3.4-5.0) Albumin/Globulin Ratio 0.6 (1.0-1.7) Lipase 124 U/L (73-393) Urine Collection Type Unknown Urine Color Holly Urine Clarity Clear Urine pH 5.0 Urine Specific [place] 1.020 Urine Protein Negative mg/dL (NEG-TRACE) Urine Glucose (UA) Negative mg/dL (NEG) Urine Ketones (Stick) Negative mg/dL (NEG) Urine Blood Large (NEG) Urine Nitrite Negative (NEG) Urine Bilirubin Negative (NEG) Urine Urobilinogen Dipstick 2.0 mg/dL (0.2 mg/dL) Urine Leukocyte Esterase Large (NEG) Urine RBC Occ /HPF (0-2) Urine WBC Tntc /HPF (0-4) Urine Squamous Epithelial Cells Occ /LPF Urine Bacteria Few /HPF (0-FEW) Urine Mucus Mod /LPF Assessment and Plan Assessmemt and Plan Problems Medical Problems: (1) Diarrhea Status: Acute (2) Elevated bilirubin Status: Acute (3) Elevated lactic acid level Status: Acute (4) Hypokalemia Status: Acute (5) Leukocytosis Status: Acute (6) Seizure Status: Acute Comment Review of Relevant I have reviewed the following items silvestre (where applicable) has been applied. Labs Laboratory Tests Test 08/25/19 11:45 08/25/19 15:07 08/26/19 00:01 White Blood Count 18.1 x10^3/uL (4.0-11.0) Red Blood Count 5.33 x10^6/uL (4.30-5.70) Hemoglobin 14.3 g/dL (13.0-17.5) Hematocrit 43.6 % (39.0-53.0) Mean Corpuscular Volume 82 fL (79-100) Mean Corpuscular Hemoglobin 27 pg (25-35) Mean Corpuscular Hemoglobin Concent 33 g/dL (31-37) Red Cell Distribution Width 14.3 % (11.5-14.5) Platelet Count 215 x10^3/uL (140-400) Neutrophils (%) (Auto) 82 % (31-73) Lymphocytes (%) (Auto) 10 % (24-48) Monocytes (%) (Auto) 8 % (0-9) Eosinophils (%) (Auto) 0 % (0-3) Basophils (%) (Auto) 0 % (0-3) Neutrophils # (Auto) 14.8 x10^3/uL (1.8-7.7) Lymphocytes # (Auto) 1.9 x10^3/uL (1.0-4.8) Monocytes # (Auto) 1.4 x10^3/uL (0.0-1.1) Eosinophils # (Auto) 0.0 x10^3/uL (0.0-0.7) Basophils # (Auto) 0.0 x10^3/uL (0.0-0.2) Segmented Neutrophils % 76 % (35-66) Band Neutrophils % 8 % (0-9) Lymphocytes % 6 % (24-48) Atypical Lymphocytes % (Manual) 3 % (0-0) Monocytes % 7 % (0-10) Toxic Vacuolation Slight Platelet Estimate Adequate (ADEQUATE) Large Platelets Few Prothrombin Time 23.1 SEC (11.7-14.0) Prothromb Time International Ratio 2.1 (0.8-1.1) Sodium Level 135 mmol/L (136-145) Potassium Level 3.2 mmol/L (3.5-5.1) Chloride Level 95 mmol/L (98-107) Carbon Dioxide Level 28 mmol/L (21-32) Anion Gap 12 (6-14) Blood Urea Nitrogen 15 mg/dL (8-26) Creatinine 1.6 mg/dL (0.7-1.3) Estimated GFR (Cockcroft-Gault) 52.0 BUN/Creatinine Ratio 9 (6-20) Glucose Level 137 mg/dL (70-99) Lactic Acid Level 3.0 mmol/L (0.4-2.0) 1.4 mmol/L (0.4-2.0) Calcium Level 9.3 mg/dL (8.5-10.1) Magnesium Level 2.1 mg/dL (1.8-2.4) Total Bilirubin 2.3 mg/dL (0.2-1.0) Aspartate Amino Transf (AST/SGOT) 15 U/L (15-37) Alanine Aminotransferase (ALT/SGPT) 15 U/L (16-63) Alkaline Phosphatase 85 U/L (46-116) Creatine Kinase 162 U/L (39-308) Troponin I Quantitative < 0.017 ng/mL (0.000-0.055) Total Protein 8.1 g/dL (6.4-8.2) Albumin 3.1 g/dL (3.4-5.0) Albumin/Globulin Ratio 0.6 (1.0-1.7) Lipase 124 U/L (73-393) Urine Collection Type Unknown Urine Color Holly Urine Clarity Clear Urine pH 5.0 Urine Specific [place] 1.020 Urine Protein Negative mg/dL (NEG-TRACE) Urine Glucose (UA) Negative mg/dL (NEG) Urine Ketones (Stick) Negative mg/dL (NEG) Urine Blood Large (NEG) Urine Nitrite Negative (NEG) Urine Bilirubin Negative (NEG) Urine Urobilinogen Dipstick 2.0 mg/dL (0.2 mg/dL) Urine Leukocyte Esterase Large (NEG) Urine RBC Occ /HPF (0-2) Urine WBC Tntc /HPF (0-4) Urine Squamous Epithelial Cells Occ /LPF Urine Bacteria Few /HPF (0-FEW) Urine Mucus Mod /LPF Laboratory Tests Test 08/25/19 11:45 08/25/19 15:07 08/26/19 00:01 White Blood Count 18.1 x10^3/uL (4.0-11.0) Red Blood Count 5.33 x10^6/uL (4.30-5.70) Hemoglobin 14.3 g/dL (13.0-17.5) Hematocrit 43.6 % (39.0-53.0) Mean Corpuscular Volume 82 fL (79-100) Mean Corpuscular Hemoglobin 27 pg (25-35) Mean Corpuscular Hemoglobin Concent 33 g/dL (31-37) Red Cell Distribution Width 14.3 % (11.5-14.5) Platelet Count 215 x10^3/uL (140-400) Neutrophils (%) (Auto) 82 % (31-73) Lymphocytes (%) (Auto) 10 % (24-48) Monocytes (%) (Auto) 8 % (0-9) Eosinophils (%) (Auto) 0 % (0-3) Basophils (%) (Auto) 0 % (0-3) Neutrophils # (Auto) 14.8 x10^3/uL (1.8-7.7) Lymphocytes # (Auto) 1.9 x10^3/uL (1.0-4.8) Monocytes # (Auto) 1.4 x10^3/uL (0.0-1.1) Eosinophils # (Auto) 0.0 x10^3/uL (0.0-0.7) Basophils # (Auto) 0.0 x10^3/uL (0.0-0.2) Segmented Neutrophils % 76 % (35-66) Band Neutrophils % 8 % (0-9) Lymphocytes % 6 % (24-48) Atypical Lymphocytes % (Manual) 3 % (0-0) Monocytes % 7 % (0-10) Toxic Vacuolation Slight Platelet Estimate Adequate (ADEQUATE) Large Platelets Few Prothrombin Time 23.1 SEC (11.7-14.0) Prothromb Time International Ratio 2.1 (0.8-1.1) Sodium Level 135 mmol/L (136-145) Potassium Level 3.2 mmol/L (3.5-5.1) Chloride Level 95 mmol/L (98-107) Carbon Dioxide Level 28 mmol/L (21-32) Anion Gap 12 (6-14) Blood Urea Nitrogen 15 mg/dL (8-26) Creatinine 1.6 mg/dL (0.7-1.3) Estimated GFR (Cockcroft-Gault) 52.0 BUN/Creatinine Ratio 9 (6-20) Glucose Level 137 mg/dL (70-99) Lactic Acid Level 3.0 mmol/L (0.4-2.0) 1.4 mmol/L (0.4-2.0) Calcium Level 9.3 mg/dL (8.5-10.1) Magnesium Level 2.1 mg/dL (1.8-2.4) Total Bilirubin 2.3 mg/dL (0.2-1.0) Aspartate Amino Transf (AST/SGOT) 15 U/L (15-37) Alanine Aminotransferase (ALT/SGPT) 15 U/L (16-63) Alkaline Phosphatase 85 U/L (46-116) Creatine Kinase 162 U/L (39-308) Troponin I Quantitative < 0.017 ng/mL (0.000-0.055) Total Protein 8.1 g/dL (6.4-8.2) Albumin 3.1 g/dL (3.4-5.0) Albumin/Globulin Ratio 0.6 (1.0-1.7) Lipase 124 U/L (73-393) Urine Collection Type Unknown Urine Color Holly Urine Clarity Clear Urine pH 5.0 Urine Specific [place] 1.020 Urine Protein Negative mg/dL (NEG-TRACE) Urine Glucose (UA) Negative mg/dL (NEG) Urine Ketones (Stick) Negative mg/dL (NEG) Urine Blood Large (NEG) Urine Nitrite Negative (NEG) Urine Bilirubin Negative (NEG) Urine Urobilinogen Dipstick 2.0 mg/dL (0.2 mg/dL) Urine Leukocyte Esterase Large (NEG) Urine RBC Occ /HPF (0-2) Urine WBC Tntc /HPF (0-4) Urine Squamous Epithelial Cells Occ /LPF Urine Bacteria Few /HPF (0-FEW) Urine Mucus Mod /LPF Medications Current Medications Sodium Chloride 1,000 ml @ 1,000 mls/hr 1X ONCE IV Last administered on 08/25/19at 12:02; Start 08/25/19 at 12:00; Stop 08/25/19 at 12:59; Status DC Fentanyl Citrate (Fentanyl 2ml Vial) 50 mcg 1X ONCE IVP Last administered on 08/25/19at 12:12; Start 08/25/19 at 12:15; Stop 08/25/19 at 12:16; Status DC Ondansetron HCl (Zofran) 4 mg 1X ONCE IV Last administered on 08/25/19at 12:11; Start 08/25/19 at 12:15; Stop 08/25/19 at 12:16; Status DC Ceftriaxone Sodium (Rocephin) 1 gm 1X ONCE IVP Last administered on 08/25/19at 15:16; Start 08/25/19 at 14:15; Stop 08/25/19 at 14:16; Status DC Potassium Chloride (Klor-Con) 40 meq 1X ONCE PO Last administered on 08/25/19 17:17; Start 08/25/19 at 15:00; Stop 08/25/19 at 15:01; Status DC Sodium Chloride 1,000 ml @ 125 mls/hr Q8H IV Last administered on 08/26/19at 0 5:16; Start 08/25/19 at 14:51; Stop 08/26/19 at 14:50 Acetaminophen (Tylenol) 650 mg PRN Q6HRS PRN PO mild pain/fever Last ad ministered on 08/25/19 23:18; Start 08/25/19 at 16:45 Allopurinol (Zyloprim) 300 mg DAILY PO Last administered on 08/26/19 09:27; Start 08/26/19 at 09:00 Amlodipine Besylate (Norvasc) 10 mg DAILY PO Last administered on 08/26/19 09:27; Start 08/26/19 at 09:00 Hydrochlorothiazide (Hydrodiuril) 25 mg DAILY PO Last administered on 08/26/19 09:27; Start 08/26/19 at 09:00 Lisinopril (Prinivil) 40 mg DAILY PO Last administered on 08/26/19 09:27; Start 08/26/19 at 09:00 Metoprolol Succinate (Toprol Xl) 200 mg DAILY PO Last administered on 08/26/19 09:27; Start 08/26/19 at 09:00 Vancomycin HCl (Vanco Per Pharmacy) 1 each PRN DAILY PRN MC SEE COMMENTS Last administered on 08/25/19at 19:22; Start 08/25/19 at 17:45 Piperacillin Sod/ Tazobactam Sod (Zosyn Per Pharmacy) 1 each PRN DAILY PRN MC SEE COMMENTS; Start 08/25/19 at 17:45 Vancomycin HCl 2 gm/Sodium Chloride 500 ml @ 250 mls/hr 1X ONCE IV Last administered on 08/25/19at 18:35; Start 08/25/19 at 18:30; Stop 08/25/19 at 20:29; Status DC Piperacillin Sod/ Tazobactam Sod 3.375 gm/Sodium Chloride 50 ml @ 100 mls/hr Q6HRS IV Last administered on 08/26/19at 05:13; Start 08/25/19 at 18:00 Vancomycin HCl 1.5 gm/Sodium Chloride 500 ml @ 250 mls/hr Q24H IV ; Start 08/26/19 at 18:00 Vancomycin HCl (Vancomycin Trough Level) 1 each 1X ONCE MC ; Start 08/27/19 at 17:30; Stop 08/27/19 at 17:31 Active Scripts Active Reported Metoprolol Succinate ( Xl ) (Metoprolol Succinate) 200 Mg Tab.er.24h 1 Tab PO DAILY Hydrochlorothiazide Tablet (Hydrochlorothiazide) 25 Mg Tablet 25 Mg PO DAILY Allopurinol 300 Mg Tablet 1 Tab PO DAILY Lisinopril 40 Mg Tablet 1 Tab PO DAILY Amlodipine Besylate 10 Mg Tablet 10 Mg PO DAILY Vitals/I & O Vital Sign - Last 24 Hours 08/25/19 08/25/19 08/25/19 08/25/19 11:08 12:00 13:00 14:00 Temp 97.9 97.9 Pulse 87 86 86 82 Resp 18 16 B/P (MAP) 140/65 (90) Pulse Ox 95 98 99 99 O2 Delivery Room Air 08/25/19 08/25/19 08/25/19 08/25/19 15:30 16:16 19:25 20:00 Temp 100.1 98.9 100.1 98.9 Pulse 101 83 Resp 18 18 B/P (MAP) 150/78 (102) 126/56 (79) Pulse Ox 98 93 O2 Delivery Room Air Room Air Room Air Room Air 08/25/19 08/26/19 08/26/19 08/26/19 23:47 03:35 07:36 09:27 Temp 99.3 99.0 98.6 99.3 99.0 98.6 Pulse 88 82 94 94 Resp 18 18 18 B/P (MAP) 144/60 (88) 127/57 (80) 150/66 (94) 150/66 Pulse Ox 94 95 94 O2 Delivery Room Air Room Air Room Air 08/26/19 08/26/19 09:27 09:27 Pulse 94 94 B/P (MAP) 150/66 150/66 Intake and Output 08/25/19 08/26/19 08/26/19 17:00 01:00 09:00 Intake Total 700 ml 0 ml Output Total 250 ml Balance 450 ml 0 ml ALIVIA MALDONADO MD Aug 26, 2019 09:45
[2019-08-26 10:56] VITALS: BP 126/72
[2019-08-26] MEDS: ACETAMINOPHEN 325 MG TABLET. PO PRN ×2 (11:01→20:17)
--- NOTE | 2019-08-26 12:31 | PDOC ---
Infectious Disease Note Vital Sign Vital Signs Vital Signs Date Time Temp Pulse Resp B/P (MAP) Pulse Ox O2 Delivery O2 Flow Rate FiO2 08/26/19 10:56 100.2 90 18 126/72 (90) 95 Room Air 100.2 Labs Lab Laboratory Tests Test 08/25/19 15:07 08/26/19 00:01 Lactic Acid Level 1.4 mmol/L (0.4-2.0) Urine Collection Type Unknown Urine Color Holly Urine Clarity Clear Urine pH 5.0 Urine Specific [place] 1.020 Urine Protein Negative mg/dL (NEG-TRACE) Urine Glucose (UA) Negative mg/dL (NEG) Urine Ketones (Stick) Negative mg/dL (NEG) Urine Blood Large (NEG) Urine Nitrite Negative (NEG) Urine Bilirubin Negative (NEG) Urine Urobilinogen Dipstick 2.0 mg/dL (0.2 mg/dL) Urine Leukocyte Esterase Large (NEG) Urine RBC Occ /HPF (0-2) Urine WBC Tntc /HPF (0-4) Urine Squamous Epithelial Cells Occ /LPF Urine Bacteria Few /HPF (0-FEW) Urine Mucus Mod /LPF Micro Microbiology 08/25/19 Blood Culture - Preliminary, Resulted NO GROWTH AFTER 1 DAY Objective Assessment UTI, POA Fever Leukocytosis Lactic acidosis Diarrhea ? seizure vs syncopal episode Hypertension Recent Tamiflu and Levaquin prior to admit Plan Plan of Care vanc and Zosyn f/u cultures C. diff pending Monitor WBC, temp and renal function closely Labs in am Maintain aspiration precautions Supportive care D/w grandsons at bedside Thank you [id number] Patient seen and examined. Chart reviewed in detail. Case discussed with COUNSEL. Agree with above plan. CHANEL BECK APRN Aug 26, 2019 12:31 ISMAEL POSADA MD Aug 26, 2019 19:45
[2019-08-26] MEDS: guaiFENesin DM 200MG/20MG 10 ML SYRUP PO PRN ×2 (12:37→16:47)
--- NOTE | 2019-08-26 14:10 | CONS ---
DATE OF CONSULTATION: 08/26/2019 REFERRING PHYSICIAN: Dr. Schwartz. REASON FOR CONSULTATION: Sepsis. HISTORY OF PRESENT ILLNESS: This patient is a 69-year-old male who recalls feeling lightheaded yesterday after finishing breakfast. He said his head was spinning before passing out, waking up on the floor. There was a question of seizure activity as his face was shaking, but not his body. He felt somewhat confused, weak with mild headache. A head CT showed no acute processes. He was evaluated by Neurology with thought of syncopal episode more likely than true seizure. He has been running low-grade fevers, T-max 100.2. He complains of frequent urination. Urinalysis was positive for wbc's too numerous to count, leukocyte esterase, blood and bacteria. Urine culture is pending. Blood cultures are negative to date. Chest x-ray showed no acute cardiopulmonary process. He was recently seen by his PCP for flu-like symptoms and was prescribed levofloxacin and Tamiflu. He also has been having some diarrhea and is not very hungry. He denies nausea, vomiting or cramps. Denies itching or rash. Denies sinus congestion, sore throat or chest discomfort. PAST MEDICAL HISTORY: Hypertension, sleep apnea, arthritis, gout, kidney stones, hyperlipidemia, history of seizure. PAST SURGICAL HISTORY: No significant past surgical history. FAMILY HISTORY: Hyperlipidemia. SOCIAL HISTORY: The patient is and lives at home. He is retired from working in a [employer] factory. He is a nonsmoker. ALLERGIES: No known drug allergies. MEDICATIONS: Vancomycin, Zosyn, one-time dose of ceftriaxone, guaifenesin, lisinopril, hydrochlorothiazide, IV fluids, allopurinol, Tylenol, metoprolol, potassium. REVIEW OF SYSTEMS: Per HPI, otherwise all other review of systems are negative. PHYSICAL EXAMINATION: VITAL SIGNS: Temperature is 100.2, blood pressure 126/72, heart rate 90, respiratory rate 18, pulse oximetry is 95% on room air. BMI is 36.0. GENERAL: The patient is propped up in bed, alert and watching TV with his grandsons. HEENT: Pupils equally round. Oropharynx is pink and moist. NECK: Supple. LUNGS: Clear. HEART: S1, S2. ABDOMEN: Obese, soft, nontender with bowel sounds present. EXTREMITIES: No gross edema or cyanosis. SKIN: Warm to touch without signs of rash. NEUROLOGIC: Alert, answering questions appropriately. He moves all extremities. LABORATORY DATA: From 08/25/2019, WBC 18.1, hemoglobin 14.3, platelets 215,000, segs 76%, bands 8%. Sodium 135, potassium 3.2, creatinine 1.6, BUN 15, glucose 137. Lactic acid 1.4 from 3.0, total bilirubin 2.3, AST 15, ALT 15. Troponin less than 0.017, albumin 3.1, lipase 124. Urinalysis per HPI. Blood cultures negative to date. Chest x-ray showed no consolidation, pleural effusion or pneumothorax. Prior granulomatosis disease within the chest. Abdominal/pelvis CT showed moderate inflammatory fat stranding identified about the urinary bladder and prostate, most likely cystitis or prostatitis. Mild fat stranding identified about the rectum, probably secondary to inflammation about the urinary bladder or proctitis. Hepatic steatosis. IMPRESSION: 1. Urinary tract infection present on admission. 2. Fever. 3. Leukocytosis. 4. Lactic acidosis. 5. Diarrhea. 6. Questionable seizure versus syncopal episode. 7. Hypertension. PLAN: 1. Continue the vancomycin and Zosyn. 2. We will follow up on culture results. 3. Clostridium difficile PCR pending. 4. Continue to monitor WBC count, temperature and renal function closely. Labs have been ordered for the morning. 5. Maintain hydration and aspiration precautions. 6. Supportive care. Thank you, Dr. Schwartz for asking us to participate in this patient's care. Should you have further questions or concerns, please call. ISMAEL POSADA MD DR: YEFRI/diana JOB#: [id number] / [id number]
[2019-08-26 15:42] VITALS: BP 149/76
[2019-08-26 16:30] LABS: BASO % 0 % (0-3); EOS # 0.1 x10^3/uL (0.0-0.7); EOS % 2 % (0-3); HEMATOCRIT 41.7 % (39.0-53.0); HEMOGLOBIN 13.8 g/dL (13.0-17.5); LYMPH # 1.4 x10^3/uL (1.0-4.8); LYMPH % 17 % (24-48); MEAN CORPUSCULAR HEMOGLOBIN 27 pg (25-35); MEAN CORPUSCULAR HGB CONC 33 g/dL (31-37); MEAN CORPUSCULAR VOLUME 82 fL (79-100); MONO % 13 % (0-9); NEUT # 5.3 x10^3/uL (1.8-7.7); NEUT % 68 % (31-73); PLATELET COUNT 193 x10^3/uL (140-400); RED BLOOD COUNT 5.09 x10^6/uL (4.30-5.70); RED CELL DISTRIBUTION WIDTH 14.6 % (11.5-14.5); WHITE BLOOD COUNT 7.8 x10^3/uL (4.0-11.0)
[2019-08-26 16:36] LABS: CALCIUM 8.5 mg/dL (8.5-10.1); CREATININE 1.3 mg/dL (0.7-1.3); POTASSIUM 3.4 mmol/L (3.5-5.1)
[2019-08-26] MEDS ORDERED: VANCOMYCIN 1.5 GM in IV NORMAL SALINE 500ML BAG 500 ML IV SCH (18:00)
--- NOTE | 2019-08-26 18:49 | RAD ---
Renal ultrasound 08/26/2019. Reason for exam: Acute renal failure. History of chronic kidney disease. FINDINGS: The kidneys have normal cortical thickness and echogenicity without apparent solid mass or obstruction. There is a 2.0 cm cyst at the lateral right kidney. The right kidney measures 11.6 centers in length and the left kidney measures 11.1 cm. Urinary bladder was not well-distended, but appears normal. IMPRESSION: No evidence of obstruction. Electronically signed by: Haile Rosario Jr., MD (08/26/2019 6:47 PM) [id number]
[2019-08-26 19:10] VITALS: BP 160/74
[2019-08-26] MEDS: LACTOBACILLUS RHAMNOSUS GG 1 CAPSULE. PO SCH (20:17)
[2019-08-26 23:10] VITALS: BP 141/70
[2019-08-27] MEDS: PIPERACILLIN/TAZOBACTAM 3.375 GM in IV NORMAL SALINE 50ML 50 ML IV SCH ×4 (00:07→18:00)
--- NOTE | 2019-08-27 01:08 | CONS ---
DATE OF CONSULTATION: REASON: Renal failure. HISTORY OF PRESENT ILLNESS: This is a 69-year-old gentleman who presents to the hospital having an episode of possible seizure activity. CT scan of the head reveals no acute processes. The patient has been having urinary frequency as well as low grade fevers to a T-max of 100.2. Urinalysis reveals findings consistent with urinary tract infection. Due to increased level of azotemia, Nephrology evaluation requested. PAST MEDICAL HISTORY: Hypertension, obstructive sleep apnea, degenerative arthritis, gout, nephrolithiasis, hyperlipidemia, seizure, obesity. ALLERGIES: None. MEDICATIONS: Reviewed per medication list. FAMILY HISTORY: Noncontributory. SOCIAL HISTORY: , resides with . REVIEW OF SYSTEMS: No headache, sinus problem, nasal drainage, epistaxis, change in vision or hearing. No difficulty swallowing. No fever, chills, cough, sputum production, or hemoptysis. No chest pain. He has had some breathlessness. No abdominal pain. No nausea, vomiting, diarrhea. No seizures or malignancies. He has urinary frequency. PHYSICAL EXAMINATION: GENERAL APPEARANCE: The patient awake, conversant. HEENT: Clear. NECK: No increased JVD. No thyromegaly, mass or adenopathy. LUNGS: Clear. CARDIAC: Without S3 or rub. ABDOMEN: Obese, bowel sounds are present. Nontender. EXTREMITIES: Without edema. NEUROLOGIC: Nonfocal, nonlocalized. PSYCHIATRIC: Good attention to detail, appropriate affect. LABORATORY DATA: White count 18.1, hemoglobin 14.3, hematocrit 43.6, platelets are 215. Sodium 135, potassium 3.2, chloride 95, CO2 of 28, BUN is 15, creatinine 1.6, GFR 52. Urinalysis, specific gravity of 1.020, large blood, negative nitrite, large leukocyte esterase, too numerous to count wbc's. IMPRESSION: Renal failure -- acute versus chronic. May have an underlying hypertensive nephrosclerosis. Also appears to have acute urinary tract infection. He has noted frequency. RECOMMENDATIONS: 1. Renal ultrasound. 2. IV antibiotics, pending urine culture results. 3. Fluid balance. We will follow. ALFONSO CERVANTES MD DR: J LUIS/diana JOB#: [id number] / [id number]
[2019-08-27] MEDS: ACETAMINOPHEN 325 MG TABLET. PO PRN ×3 (02:57→16:55)
[2019-08-27 03:10] VITALS: BP 154/85
[2019-08-27 03:31] LABS: BASE EXCESS ABG 3 mmol/L (-3-3); HCO3 ABG 27 mmol/L (21-28); PCO2 ABG 38 mmHg (35-46); PO2 ABG 72 mmHg (65-108); SAT O2 ABG 95 % (92-99)
[2019-08-27 03:40] LABS: FIO2 ABG 50
--- NOTE | 2019-08-27 03:47 | RAD ---
Exam: Chest one view INDICATION: Hypoxia TECHNIQUE: Frontal view of the chest Comparisons: 08/25/2019 FINDINGS: The cardiomediastinal silhouette and pulmonary vessels are within normal limits. The lung and pleural spaces are clear. IMPRESSION: No acute cardiopulmonary process. Electronically signed by: Natalya Armstrong MD (08/27/2019 3:44 AM) [id number]
[2019-08-27 04:43] LABS: INFLUENZA A PATIENT NEGATIVE (NEGATIVE); INFLUENZA B PATIENT NEGATIVE (NEGATIVE)
[2019-08-27 05:19] LABS: BASO % 0 % (0-3); EOS # 0.2 x10^3/uL (0.0-0.7); EOS % 2 % (0-3); HEMATOCRIT 43.3 % (39.0-53.0); HEMOGLOBIN 14.2 g/dL (13.0-17.5); LYMPH # 1.9 x10^3/uL (1.0-4.8); LYMPH % 22 % (24-48); MEAN CORPUSCULAR HEMOGLOBIN 27 pg (25-35); MEAN CORPUSCULAR HGB CONC 33 g/dL (31-37); MEAN CORPUSCULAR VOLUME 82 fL (79-100); MONO # 1.5 x10^3/uL (0.0-1.1); MONO % 18 % (0-9); NEUT # 4.9 x10^3/uL (1.8-7.7); NEUT % 58 % (31-73); PLATELET COUNT 225 x10^3/uL (140-400); RED BLOOD COUNT 5.31 x10^6/uL (4.30-5.70); RED CELL DISTRIBUTION WIDTH 14.7 % (11.5-14.5); WHITE BLOOD COUNT 8.4 x10^3/uL (4.0-11.0)
[2019-08-27 05:25] LABS: ALBUMIN 2.7 g/dL (3.4-5.0); ALBUMIN/GLOBULIN RATIO 0.6 (1.0-1.7); CALCIUM 8.6 mg/dL (8.5-10.1); CREATININE 1.2 mg/dL (0.7-1.3); GFR 72.4; POTASSIUM 3.3 mmol/L (3.5-5.1); TOTAL PROTEIN 7.5 g/dL (6.4-8.2)
[2019-08-27 07:52] VITALS: BP 147/83
--- NOTE | 2019-08-27 08:54 | NUR ---
SW following pt for dc planning. Chart reviewed. Pt lives at home with spouse. ID, Nephrology and neuro following. SW will be available as needed.
[2019-08-27] MEDS: LISINOPRIL 20 MG TABLET PO SCH (08:59)
[2019-08-27] MEDS: amLODIPine BESYLATE 10 MG TABLET PO SCH (08:59)
[2019-08-27] MEDS: guaiFENesin DM 200MG/20MG 10 ML SYRUP PO PRN (08:59)
[2019-08-27] MEDS: METOPROLOL SUCC 24HR ER 100 MG TAB.ER.24H. PO SCH (09:00)
[2019-08-27] MEDS: hydroCHLOROthiazide 25 MG TABLET PO SCH (09:00)
[2019-08-27] MEDS: LACTOBACILLUS RHAMNOSUS GG 1 CAPSULE. PO SCH ×2 (09:00→20:33)
[2019-08-27] MEDS: ALLOPURINOL 300 MG TABLET. PO SCH (09:00)
--- NOTE | 2019-08-27 09:59 | PDOC ---
PROGRESS NOTES Assessment Problems Medical Problems: (1) Diarrhea Status: Acute (2) Elevated bilirubin Status: Acute (3) Elevated lactic acid level Status: Acute (4) Hypokalemia Status: Acute (5) Leukocytosis Status: Acute (6) Seizure Status: Acute I spoke to daughter, she witnessed convulsing with postictal confusion, but this still may have been convulsive syncope Sepsis syndrome and UTI Fever Leukocytosis Lactic acidosis Diarrhea Hypertension Plan I ordered an EEG Hold off on anticonvulsants unless EEG abnormal Discussed with patient and daughter. Subjective Feels much better Objective Vital Signs Date Time Temp Pulse Resp B/P (MAP) Pulse Ox O2 Delivery O2 Flow Rate FiO2 08/27/19 09:00 79 147/83 08/27/19 07:52 98.2 18 96 Nasal Cannula 3.0 98.2 Intake and Output 08/27/19 07:00 Intake Total 1780 ml Output Total 200 ml Balance 1580 ml Intake Oral 1780 ml Output Urine Total 200 ml # Voids 7 PHYSICAL EXAM Alert. Oriented to time, place and person. PERRL. EOMI. CN: no focal findings. Muscle tone: normal. Muscle strength: 5/5 DTR: 2+ Plantar reflex: flexor Gait: normal. Sensory exam: no abnormal findings. No cerebellar signs elicited. Review of Relevant I have reviewed the following items silvestre (where applicable) has been applied. Labs Laboratory Tests Test 08/25/19 11:45 08/25/19 15:07 08/26/19 00:01 08/26/19 16:15 White Blood Count 18.1 x10^3/uL (4.0-11.0) 7.8 x10^3/uL (4.0-11.0) Red Blood Count 5.33 x10^6/uL (4.30-5.70) 5.09 x10^6/uL (4.30-5.70) Hemoglobin 14.3 g/dL (13.0-17.5) 13.8 g/dL (13.0-17.5) Hematocrit 43.6 % (39.0-53.0) 41.7 % (39.0-53.0) Mean Corpuscular Volume 82 fL (79-100) 82 fL (79-100) Mean Corpuscular Hemoglobin 27 pg (25-35) 27 pg (25-35) Mean Corpuscular Hemoglobin Concent 33 g/dL (31-37) 33 g/dL (31-37) Red Cell Distribution Width 14.3 % (11.5-14.5) 14.6 % (11.5-14.5) Platelet Count 215 x10^3/uL (140-400) 193 x10^3/uL (140-400) Neutrophils (%) (Auto) 82 % (31-73) 68 % (31-73) Lymphocytes (%) (Auto) 10 % (24-48) 17 % (24-48) Monocytes (%) (Auto) 8 % (0-9) 13 % (0-9) Eosinophils (%) (Auto) 0 % (0-3) 2 % (0-3) Basophils (%) (Auto) 0 % (0-3) 0 % (0-3) Neutrophils # (Auto) 14.8 x10^3/uL (1.8-7.7) 5.3 x10^3/uL (1.8-7.7) Lymphocytes # (Auto) 1.9 x10^3/uL (1.0-4.8) 1.4 x10^3/uL (1.0-4.8) Monocytes # (Auto) 1.4 x10^3/uL (0.0-1.1) 1.0 x10^3/uL (0.0-1.1) Eosinophils # (Auto) 0.0 x10^3/uL (0.0-0.7) 0.1 x10^3/uL (0.0-0.7) Basophils # (Auto) 0.0 x10^3/uL (0.0-0.2) 0.0 x10^3/uL (0.0-0.2) Segmented Neutrophils % 76 % (35-66) Band Neutrophils % 8 % (0-9) Lymphocytes % 6 % (24-48) Atypical Lymphocytes % (Manual) 3 % (0-0) Monocytes % 7 % (0-10) Toxic Vacuolation Slight Platelet Estimate Adequate (ADEQUATE) Large Platelets Few Prothrombin Time 23.1 SEC (11.7-14.0) Prothromb Time International Ratio 2.1 (0.8-1.1) Sodium Level 135 mmol/L (136-145) 136 mmol/L (136-145) Potassium Level 3.2 mmol/L (3.5-5.1) 3.4 mmol/L (3.5-5.1) Chloride Level 95 mmol/L (98-107) 99 mmol/L (98-107) Carbon Dioxide Level 28 mmol/L (21-32) 28 mmol/L (21-32) Anion Gap 12 (6-14) 9 (6-14) Blood Urea Nitrogen 15 mg/dL (8-26) 13 mg/dL (8-26) Creatinine 1.6 mg/dL (0.7-1.3) 1.3 mg/dL (0.7-1.3) Estimated GFR (Cockcroft-Gault) 52.0 66.0 BUN/Creatinine Ratio 9 (6-20) Glucose Level 137 mg/dL (70-99) 113 mg/dL (70-99) Lactic Acid Level 3.0 mmol/L (0.4-2.0) 1.4 mmol/L (0.4-2.0) Calcium Level 9.3 mg/dL (8.5-10.1) 8.5 mg/dL (8.5-10.1) Magnesium Level 2.1 mg/dL (1.8-2.4) Total Bilirubin 2.3 mg/dL (0.2-1.0) Aspartate Amino Transf (AST/SGOT) 15 U/L (15-37) Alanine Aminotransferase (ALT/SGPT) 15 U/L (16-63) Alkaline Phosphatase 85 U/L (46-116) Creatine Kinase 162 U/L (39-308) Troponin I Quantitative < 0.017 ng/mL (0.000-0.055) Total Protein 8.1 g/dL (6.4-8.2) Albumin 3.1 g/dL (3.4-5.0) Albumin/Globulin Ratio 0.6 (1.0-1.7) Lipase 124 U/L (73-393) Urine Collection Type Unknown Urine Color Holly Urine Clarity Clear Urine pH 5.0 Urine Specific Margaret 1.020 Urine Protein Negative mg/dL (NEG-TRACE) Urine Glucose (UA) Negative mg/dL (NEG) Urine Ketones (Stick) Negative mg/dL (NEG) Urine Blood Large (NEG) Urine Nitrite Negative (NEG) Urine Bilirubin Negative (NEG) Urine Urobilinogen Dipstick 2.0 mg/dL (0.2 mg/dL) Urine Leukocyte Esterase Large (NEG) Urine RBC Occ /HPF (0-2) Urine WBC Tntc /HPF (0-4) Urine Squamous Epithelial Cells Occ /LPF Urine Bacteria Few /HPF (0-FEW) Urine Mucus Mod /LPF Test 08/27/19 02:56 08/27/19 03:17 08/27/19 03:30 White Blood Count 8.4 x10^3/uL (4.0-11.0) Red Blood Count 5.31 x10^6/uL (4.30-5.70) Hemoglobin 14.2 g/dL (13.0-17.5) Hematocrit 43.3 % (39.0-53.0) Mean Corpuscular Volume 82 fL (79-100) Mean Corpuscular Hemoglobin 27 pg (25-35) Mean Corpuscular Hemoglobin Concent 33 g/dL (31-37) Red Cell Distribution Width 14.7 % (11.5-14.5) Platelet Count 225 x10^3/uL (140-400) Neutrophils (%) (Auto) 58 % (31-73) Lymphocytes (%) (Auto) 22 % (24-48) Monocytes (%) (Auto) 18 % (0-9) Eosinophils (%) (Auto) 2 % (0-3) Basophils (%) (Auto) 0 % (0-3) Neutrophils # (Auto) 4.9 x10^3/uL (1.8-7.7) Lymphocytes # (Auto) 1.9 x10^3/uL (1.0-4.8) Monocytes # (Auto) 1.5 x10^3/uL (0.0-1.1) Eosinophils # (Auto) 0.2 x10^3/uL (0.0-0.7) Basophils # (Auto) 0.0 x10^3/uL (0.0-0.2) Sodium Level 138 mmol/L (136-145) Potassium Level 3.3 mmol/L (3.5-5.1) Chloride Level 99 mmol/L (98-107) Carbon Dioxide Level 28 mmol/L (21-32) Anion Gap 11 (6-14) Blood Urea Nitrogen 11 mg/dL (8-26) Creatinine 1.2 mg/dL (0.7-1.3) Estimated GFR (Cockcroft-Gault) 72.4 BUN/Creatinine Ratio 9 (6-20) Glucose Level 94 mg/dL (70-99) Calcium Level 8.6 mg/dL (8.5-10.1) Total Bilirubin 1.0 mg/dL (0.2-1.0) Aspartate Amino Transf (AST/SGOT) 29 U/L (15-37) Alanine Aminotransferase (ALT/SGPT) 32 U/L (16-63) Alkaline Phosphatase 77 U/L (46-116) Total Protein 7.5 g/dL (6.4-8.2) Albumin 2.7 g/dL (3.4-5.0) Albumin/Globulin Ratio 0.6 (1.0-1.7) O2 Saturation 95 % (92-99) Arterial Blood pH 7.47 (7.35-7.45) Arterial Blood pCO2 at Patient Temp 38 mmHg (35-46) Arterial Blood pO2 at Patient Temp 72 mmHg (65-108) Arterial Blood HCO3 27 mmol/L (21-28) Arterial Blood Base Excess 3 mmol/L (-3-3) FiO2 50 Influenza Type A Antigen Negative (NEGATIVE) Influenza Type B Antigen Negative (NEGATIVE) Laboratory Tests Test 08/26/19 16:15 08/27/19 02:56 08/27/19 03:17 08/27/19 03:30 White Blood Count 7.8 x10^3/uL (4.0-11.0) 8.4 x10^3/uL (4.0-11.0) Red Blood Count 5.09 x10^6/uL (4.30-5.70) 5.31 x10^6/uL (4.30-5.70) Hemoglobin 13.8 g/dL (13.0-17.5) 14.2 g/dL (13.0-17.5) Hematocrit 41.7 % (39.0-53.0) 43.3 % (39.0-53.0) Mean Corpuscular Volume 82 fL (79-100) 82 fL (79-100) Mean Corpuscular Hemoglobin 27 pg (25-35) 27 pg (25-35) Mean Corpuscular Hemoglobin Concent 33 g/dL (31-37) 33 g/dL (31-37) Red Cell Distribution Width 14.6 % (11.5-14.5) 14.7 % (11.5-14.5) Platelet Count 193 x10^3/uL (140-400) 225 x10^3/uL (140-400) Neutrophils (%) (Auto) 68 % (31-73) 58 % (31-73) Lymphocytes (%) (Auto) 17 % (24-48) 22 % (24-48) Monocytes (%) (Auto) 13 % (0-9) 18 % (0-9) Eosinophils (%) (Auto) 2 % (0-3) 2 % (0-3) Basophils (%) (Auto) 0 % (0-3) 0 % (0-3) Neutrophils # (Auto) 5.3 x10^3/uL (1.8-7.7) 4.9 x10^3/uL (1.8-7.7) Lymphocytes # (Auto) 1.4 x10^3/uL (1.0-4.8) 1.9 x10^3/uL (1.0-4.8) Monocytes # (Auto) 1.0 x10^3/uL (0.0-1.1) 1.5 x10^3/uL (0.0-1.1) Eosinophils # (Auto) 0.1 x10^3/uL (0.0-0.7) 0.2 x10^3/uL (0.0-0.7) Basophils # (Auto) 0.0 x10^3/uL (0.0-0.2) 0.0 x10^3/uL (0.0-0.2) Sodium Level 136 mmol/L (136-145) 138 mmol/L (136-145) Potassium Level 3.4 mmol/L (3.5-5.1) 3.3 mmol/L (3.5-5.1) Chloride Level 99 mmol/L (98-107) 99 mmol/L (98-107) Carbon Dioxide Level 28 mmol/L (21-32) 28 mmol/L (21-32) Anion Gap 9 (6-14) 11 (6-14) Blood Urea Nitrogen 13 mg/dL (8-26) 11 mg/dL (8-26) Creatinine 1.3 mg/dL (0.7-1.3) 1.2 mg/dL (0.7-1.3) Estimated GFR (Cockcroft-Gault) 66.0 72.4 Glucose Level 113 mg/dL (70-99) 94 mg/dL (70-99) Calcium Level 8.5 mg/dL (8.5-10.1) 8.6 mg/dL (8.5-10.1) BUN/Creatinine Ratio 9 (6-20) Total Bilirubin 1.0 mg/dL (0.2-1.0) Aspartate Amino Transf (AST/SGOT) 29 U/L (15-37) Alanine Aminotransferase (ALT/SGPT) 32 U/L (16-63) Alkaline Phosphatase 77 U/L (46-116) Total Protein 7.5 g/dL (6.4-8.2) Albumin 2.7 g/dL (3.4-5.0) Albumin/Globulin Ratio 0.6 (1.0-1.7) O2 Saturation 95 % (92-99) Arterial Blood pH 7.47 (7.35-7.45) Arterial Blood pCO2 at Patient Temp 38 mmHg (35-46) Arterial Blood pO2 at Patient Temp 72 mmHg (65-108) Arterial Blood HCO3 27 mmol/L (21-28) Arterial Blood Base Excess 3 mmol/L (-3-3) FiO2 50 Influenza Type A Antigen Negative (NEGATIVE) Influenza Type B Antigen Negative (NEGATIVE) Microbiology 08/25/19 Blood Culture - Preliminary, Resulted NO GROWTH AFTER 1 DAY Medications Current Medications Sodium Chloride 1,000 ml @ 1,000 mls/hr 1X ONCE IV Last administered on 08/25/19at 12:02; Start 08/25/19 at 12:00; Stop 08/25/19 at 12:59; Status DC Fentanyl Citrate (Fentanyl 2ml Vial) 50 mcg 1X ONCE IVP Last administered on 08/25/19at 12:12; Start 08/25/19 at 12:15; Stop 08/25/19 at 12:16; Status DC Ondansetron HCl (Zofran) 4 mg 1X ONCE IV Last administered on 08/25/19at 12:11; Start 08/25/19 at 12:15; Stop 08/25/19 at 12:16; Status DC Ceftriaxone Sodium (Rocephin) 1 gm 1X ONCE IVP Last administered on 08/25/19 15:16; Start 08/25/19 at 14:15; Stop 08/25/19 at 14:16; Status DC Potassium Chloride (Klor-Con) 40 meq 1X ONCE PO Last administered on 08/25/19 17:17; Start 08/25/19 at 15:00; Stop 08/25/19 at 15:01; Status DC Sodium Chloride 1,000 ml @ 125 mls/hr Q8H IV Last administered on 08/26/19 05:16; Start 08/25/19 at 14:51; Stop 08/26/19 at 14:50; Status DC Acetaminophen (Tylenol) 650 mg PRN Q6HRS PRN PO mild pain/fever Last administered on 08/27/19 02:57; Start 08/25/19 at 16:45 Allopurinol (Zyloprim) 300 mg DAILY PO Last administered on 08/27/19 09:00; Start 08/26/19 at 09:00 Amlodipine Besylate (Norvasc) 10 mg DAILY PO Last administered on 08/27/19 08:59; Start 08/26/19 at 09:00 Hydrochlorothiazide (Hydrodiuril) 25 mg DAILY PO Last administered on 08/27/19 09:00; Start 08/26/19 at 09:00 Lisinopril (Prinivil) 40 mg DAILY PO Last administered on 08/27/19 08:59; Start 08/26/19 at 09:00 Metoprolol Succinate (Toprol Xl) 200 mg DAILY PO Last administered on 08/27/19at 09:00; Start 08/26/19 at 09:00 Vancomycin HCl (Vanco Per Pharmacy) 1 each PRN DAILY PRN MC SEE COMMENTS Last administered on 08/25/19 19:22; Start 08/25/19 at 17:45 Piperacillin Sod/ Tazobactam Sod (Zosyn Per Pharmacy) 1 each PRN DAILY PRN MC SEE COMMENTS; Start 08/25/19 at 17:45 Vancomycin HCl 2 gm/Sodium Chloride 500 ml @ 250 mls/hr 1X ONCE IV Last adm inistered on 08/25/19at 18:35; Start 08/25/19 at 18:30; Stop 08/25/19 at 20:29; Status DC Piperacillin Sod/ Tazobactam Sod 3.375 gm/Sodium Chloride 50 ml @ 100 mls/hr Q6HRS IV Last administered on 08/27/19at 05:33; Start 08/25/19 at 18:00 Vancomycin HCl 1.5 gm/Sodium Chloride 500 ml @ 250 mls/hr Q24H IV Last administered on 08/26/19at 19:54; Start 08/26/19 at 18:00 Vancomycin HCl (Vancomycin Trough Level) 1 each 1X ONCE MC ; Start 08/27/19 at 17:30; Stop 08/27/19 at 17:31 Guaifenesin (Robitussin Dm) 10 ml PRN Q4HRS PRN PO COUGH Last administered on 08/27/19at 08:59; Start 08/26/19 at 11:45 Lactobacillus Rhamnosus (Culturelle) 1 cap BID PO Last administered on 08/27/19at 09:00; Start 08/26/19 at 21:00 Active Scripts Active Reported Metoprolol Succinate ( Xl ) (Metoprolol Succinate) 200 Mg Tab.er.24h 1 Tab PO DAILY Hydrochlorothiazide Tablet (Hydrochlorothiazide) 25 Mg Tablet 25 Mg PO DAILY Allopurinol 300 Mg Tablet 1 Tab PO DAILY Lisinopril 40 Mg Tablet 1 Tab PO DAILY Amlodipine Besylate 10 Mg Tablet 10 Mg PO DAILY Vitals/I & O Vital Sign - Last 24 Hours 08/26/19 08/26/19 08/26/19 08/26/19 10:56 15:42 19:10 20:00 Temp 100.2 98.9 102.0 100.2 98.9 102.0 Pulse 90 109 89 Resp B/P (MAP) 126/72 (90) 149/76 (100) 160/74 (102) Pulse Ox 95 94 93 O2 Delivery Room Air Room Air Room Air Room Air 08/26/19 08/27/19 08/27/19 08/27/19 23:10 03:10 07:52 08:59 Temp 100.4 100.2 98.2 100.4 100.2 98.2 Pulse 76 86 79 79 Resp 18 B/P (MAP) 141/70 (93) 154/85 (108) 147/83 (104) 147/83 Pulse Ox 95 91 96 O2 Delivery Nasal Cannula Nasal Cannula Nasal Cannula O2 Flow Rate 2.5 3.0 3.0 08/27/19 08/27/19 08:59 09:00 Pulse 79 79 B/P (MAP) 147/83 147/83 Intake and Output 08/26/19 08/26/19 08/27/19 15:00 23:00 07:00 Intake Total 800 ml 480 ml 500 ml Output Total 200 ml Balance 800 ml 480 ml 300 ml GABRIELLA SMILEY MD Aug 27, 2019 09:59
--- NOTE | 2019-08-27 10:04 | PDOC ---
PROGRESS NOTES History of Present Illness History of Present Illness ASSESSMENT AND PLAN: Seizure, coagulopathy, leukocytosis, lactic acidosis, hypokalemia, hyponatremia, acute renal failure, malnutrition. HYPOXIC EPISODE 08/27 UTI SEPSIS SEVERE PROTEIN-CALORIC MALNUTRITION admitted. consult Neurology. empiric IV antibiotics D/C Zosyn and CONT vancomycin, consult Nephrology. Frequent labs, PT, OT, DVT prophylaxis. Full code. AVOID ANTICONVULSANTS at this time CT CHEST 08/27 RLL INFILTRATE 08/26 CONTINUE iv vanc and D/C Zosyn f/u cultures C. diff pending 08/27 CONTINUED FEVER IV ZYVOX STARTED T MAX 102 f REPLACED K D/W FAMILY IN ROOM 36 MIN PT EXAM, CHART REVIEW, > 50% OF TIME SPENT WITH EXAM, CHART REVIEW, PT CARE COORDINATION Vitals Vitals Vital Signs Date Time Temp Pulse Resp B/P (MAP) Pulse Ox O2 Delivery O2 Flow Rate FiO2 08/27/19 09:00 79 147/83 08/27/19 07:52 98.2 18 96 Nasal Cannula 3.0 98.2 Physical Exam General: Alert, Oriented X3, Cooperative Heart: Regular rate Lungs: Clear Abdomen: Normal bowel sounds, Soft, No tenderness Extremities: No cyanosis Labs LABS xamination: CT of the abdomen pelvis without contrast HISTORY: History of diarrhea for 3 days COMPARISON: None available TECHNIQUE: Axial CT images of the abdomen is performed without contrast. Coronal and sagittal reformats are performed Exposure: One or more of the following individualized dose reduction techniques were utilized for this examination: 1. Automated exposure control 2. Adjustment of the mA and/or kV according to patient size 3. Use of iterative reconstruction technique FINDINGS: Minimal bibasilar lung atelectasis. No evidence of free air identified in the abdomen. The evaluation of the solid organs is limited due to lack of IV contrast. The evaluation of bowel is limited due to lack of oral contrast. Diffuse decreased attenuation noted in the liver likely hepatic steatosis. The visualized spleen, adrenals grossly appears unremarkable the gallbladder is mildly distended. The stomach is mildly distended. The visualized pancreas grossly appears unremarkable. The small bowel is nondilated. The appendix is normal. Liquid stool identified in the colon. There is mild fat stranding identified about the rectum. Moderate inflammatory fat stranding identified about the urinary bladder and the prostate gland. No evidence of intrarenal collecting system calculi or hydronephrosis. Cystic structures identified in the right kidney with the largest measuring 1.3 cm, difficult to characterize probably cysts. Moderate aortic atherosclerosis. Moderate degenerative changes thoracolumbar spine. IMPRESSION: 1. Moderate inflammatory fat stranding identified about the urinary bladder and prostate most likely cystitis or prostatitis. Correlate with urine analysis. 2. Mild fat stranding identified about the rectum probably secondary to inflammation about the urinary bladder or proctitis. 3. Hepatic steatosis. PROCEDURE: RENAL COMPLETE BILATERAL Renal ultrasound 08/26/2019. Reason for exam: Acute renal failure. History of chronic kidney disease. FINDINGS: The kidneys have normal cortical thickness and echogenicity without apparent solid mass or obstruction. There is a 2.0 cm cyst at the lateral right kidney. The right kidney measures 11.6 centers in length and the left kidney measures 11.1 cm. Urinary bladder was not well-distended, but appears normal. IMPRESSION: No evidence of obstruction. Electronically signed by: Marisel Rosario Jr., MD (08/26/2019 6:47 PM) [facility] DICTATED and SIGNED BY: MARISEL ROSARIO Jr, MD DATE: 08/26/191846 SPEC #: [id number] [place]: 08/25/19 STATUS: RES REQ #: [id number] RECD: 08/25/[address] [facility] [address]: DEE DEE OSWALD MD SOURCE: BLOOD ENTR: 08/25/[address] [facility] [address]: VIVEK MOSELEY [facility] Procedure Result BLOOD CULTURE Preliminary NO GROWTH AFTER 2 DAYS STATUS: ADM IN ORD. PHYSICIAN: ALIVIA MALDONADO MD REASON: hypoxia #[id number] PROCEDURE: PORTABLE CHEST 1V Exam: Chest one view INDICATION: Hypoxia TECHNIQUE: Frontal view of the chest Comparisons: 08/25/2019 FINDINGS: The cardiomediastinal silhouette and pulmonary vessels are within normal limits. The lung and pleural spaces are clear. IMPRESSION: No acute cardiopulmonary process. Electronically signed by: Natalya Toth MD (08/27/2019 3:44 AM) [facility] DICTATED and SIGNED BY: NATALYA TOTH MD DATE: 08/27/19343 Laboratory Tests Test 08/26/19 16:15 08/27/19 02:56 08/27/19 03:17 08/27/19 03:30 White Blood Count 7.8 x10^3/uL (4.0-11.0) 8.4 x10^3/uL (4.0-11.0) Red Blood Count 5.09 x10^6/uL (4.30-5.70) 5.31 x10^6/uL (4.30-5.70) Hemoglobin 13.8 g/dL (13.0-17.5) 14.2 g/dL (13.0-17.5) Hematocrit 41.7 % (39.0-53.0) 43.3 % (39.0-53.0) Mean Corpuscular Volume 82 fL (79-100) 82 fL (79-100) Mean Corpuscular Hemoglobin 27 pg (25-35) 27 pg (25-35) Mean Corpuscular Hemoglobin Concent 33 g/dL (31-37) 33 g/dL (31-37) Red Cell Distribution Width 14.6 % (11.5-14.5) 14.7 % (11.5-14.5) Platelet Count 193 x10^3/uL (140-400) 225 x10^3/uL (140-400) Neutrophils (%) (Auto) 68 % (31-73) 58 % (31-73) Lymphocytes (%) (Auto) 17 % (24-48) 22 % (24-48) Monocytes (%) (Auto) 13 % (0-9) 18 % (0-9) Eosinophils (%) (Auto) 2 % (0-3) 2 % (0-3) Basophils (%) (Auto) 0 % (0-3) 0 % (0-3) Neutrophils # (Auto) 5.3 x10^3/uL (1.8-7.7) 4.9 x10^3/uL (1.8-7.7) Lymphocytes # (Auto) 1.4 x10^3/uL (1.0-4.8) 1.9 x10^3/uL (1.0-4.8) Monocytes # (Auto) 1.0 x10^3/uL (0.0-1.1) 1.5 x10^3/uL (0.0-1.1) Eosinophils # (Auto) 0.1 x10^3/uL (0.0-0.7) 0.2 x10^3/uL (0.0-0.7) Basophils # (Auto) 0.0 x10^3/uL (0.0-0.2) 0.0 x10^3/uL (0.0-0.2) Sodium Level 136 mmol/L (136-145) 138 mmol/L (136-145) Potassium Level 3.4 mmol/L (3.5-5.1) 3.3 mmol/L (3.5-5.1) Chloride Level 99 mmol/L (98-107) 99 mmol/L (98-107) Carbon Dioxide Level 28 mmol/L (21-32) 28 mmol/L (21-32) Anion Gap 9 (6-14) 11 (6-14) Blood Urea Nitrogen 13 mg/dL (8-26) 11 mg/dL (8-26) Creatinine 1.3 mg/dL (0.7-1.3) 1.2 mg/dL (0.7-1.3) Estimated GFR (Cockcroft-Gault) 66.0 72.4 Glucose Level 113 mg/dL (70-99) 94 mg/dL (70-99) Calcium Level 8.5 mg/dL (8.5-10.1) 8.6 mg/dL (8.5-10.1) BUN/Creatinine Ratio 9 (6-20) Total Bilirubin 1.0 mg/dL (0.2-1.0) Aspartate Amino Transf (AST/SGOT) 29 U/L (15-37) Alanine Aminotransferase (ALT/SGPT) 32 U/L (16-63) Alkaline Phosphatase 77 U/L (46-116) Total Protein 7.5 g/dL (6.4-8.2) Albumin 2.7 g/dL (3.4-5.0) Albumin/Globulin Ratio 0.6 (1.0-1.7) O2 Saturation 95 % (92-99) Arterial Blood pH 7.47 (7.35-7.45) Arterial Blood pCO2 at Patient Temp 38 mmHg (35-46) Arterial Blood pO2 at Patient Temp 72 mmHg (65-108) Arterial Blood HCO3 27 mmol/L (21-28) Arterial Blood Base Excess 3 mmol/L (-3-3) FiO2 50 Influenza Type A Antigen Negative (NEGATIVE) Influenza Type B Antigen Negative (NEGATIVE) Assessment and Plan Assessmemt and Plan Problems Medical Problems: (1) Diarrhea Status: Acute (2) Elevated bilirubin Status: Acute (3) Elevated lactic acid level Status: Acute (4) Hypokalemia Status: Acute (5) Leukocytosis Status: Acute (6) Seizure Status: Acute Comment Review of Relevant I have reviewed the following items silvestre (where applicable) has been applied. Labs Laboratory Tests Test 08/25/19 11:45 08/25/19 15:07 08/26/19 00:01 08/26/19 16:15 White Blood Count 18.1 x10^3/uL (4.0-11.0) 7.8 x10^3/uL (4.0-11.0) Red Blood Count 5.33 x10^6/uL (4.30-5.70) 5.09 x10^6/uL (4.30-5.70) Hemoglobin 14.3 g/dL (13.0-17.5) 13.8 g/dL (13.0-17.5) Hematocrit 43.6 % (39.0-53.0) 41.7 % (39.0-53.0) Mean Corpuscular Volume 82 fL (79-100) 82 fL (79-100) Mean Corpuscular Hemoglobin 27 pg (25-35) 27 pg (25-35) Mean Corpuscular Hemoglobin Concent 33 g/dL (31-37) 33 g/dL (31-37) Red Cell Distribution Width 14.3 % (11.5-14.5) 14.6 % (11.5-14.5) Platelet Count 215 x10^3/uL (140-400) 193 x10^3/uL (140-400) Neutrophils (%) (Auto) 82 % (31-73) 68 % (31-73) Lymphocytes (%) (Auto) 10 % (24-48) 17 % (24-48) Monocytes (%) (Auto) 8 % (0-9) 13 % (0-9) Eosinophils (%) (Auto) 0 % (0-3) 2 % (0-3) Basophils (%) (Auto) 0 % (0-3) 0 % (0-3) Neutrophils # (Auto) 14.8 x10^3/uL (1.8-7.7) 5.3 x10^3/uL (1.8-7.7) Lymphocytes # (Auto) 1.9 x10^3/uL (1.0-4.8) 1.4 x10^3/uL (1.0-4.8) Monocytes # (Auto) 1.4 x10^3/uL (0.0-1.1) 1.0 x10^3/uL (0.0-1.1) Eosinophils # (Auto) 0.0 x10^3/uL (0.0-0.7) 0.1 x10^3/uL (0.0-0.7) Basophils # (Auto) 0.0 x10^3/uL (0.0-0.2) 0.0 x10^3/uL (0.0-0.2) Segmented Neutrophils % 76 % (35-66) Band Neutrophils % 8 % (0-9) Lymphocytes % 6 % (24-48) Atypical Lymphocytes % (Manual) 3 % (0-0) Monocytes % 7 % (0-10) Toxic Vacuolation Slight Platelet Estimate Adequate (ADEQUATE) Large Platelets Few Prothrombin Time 23.1 SEC (11.7-14.0) Prothromb Time International Ratio 2.1 (0.8-1.1) Sodium Level 135 mmol/L (136-145) 136 mmol/L (136-145) Potassium Level 3.2 mmol/L (3.5-5.1) 3.4 mmol/L (3.5-5.1) Chloride Level 95 mmol/L (98-107) 99 mmol/L (98-107) Carbon Dioxide Level 28 mmol/L (21-32) 28 mmol/L (21-32) Anion Gap 12 (6-14) 9 (6-14) Blood Urea Nitrogen 15 mg/dL (8-26) 13 mg/dL (8-26) Creatinine 1.6 mg/dL (0.7-1.3) 1.3 mg/dL (0.7-1.3) Estimated GFR (Cockcroft-Gault) 52.0 66.0 BUN/Creatinine Ratio 9 (6-20) Glucose Level 137 mg/dL (70-99) 113 mg/dL (70-99) Lactic Acid Level 3.0 mmol/L (0.4-2.0) 1.4 mmol/L (0.4-2.0) Calcium Level 9.3 mg/dL (8.5-10.1) 8.5 mg/dL (8.5-10.1) Magnesium Level 2.1 mg/dL (1.8-2.4) Total Bilirubin 2.3 mg/dL (0.2-1.0) Aspartate Amino Transf (AST/SGOT) 15 U/L (15-37) Alanine Aminotransferase (ALT/SGPT) 15 U/L (16-63) Alkaline Phosphatase 85 U/L (46-116) Creatine Kinase 162 U/L (39-308) Troponin I Quantitative < 0.017 ng/mL (0.000-0.055) Total Protein 8.1 g/dL (6.4-8.2) Albumin 3.1 g/dL (3.4-5.0) Albumin/Globulin Ratio 0.6 (1.0-1.7) Lipase 124 U/L (73-393) Urine Collection Type Unknown Urine Color Holly Urine Clarity Clear Urine pH 5.0 Urine Specific [place] 1.020 Urine Protein Negative mg/dL (NEG-TRACE) Urine Glucose (UA) Negative mg/dL (NEG) Urine Ketones (Stick) Negative mg/dL (NEG) Urine Blood Large (NEG) Urine Nitrite Negative (NEG) Urine Bilirubin Negative (NEG) Urine Urobilinogen Dipstick 2.0 mg/dL (0.2 mg/dL) Urine Leukocyte Esterase Large (NEG) Urine RBC Occ /HPF (0-2) Urine WBC Tntc /HPF (0-4) Urine Squamous Epithelial Cells Occ /LPF Urine Bacteria Few /HPF (0-FEW) Urine Mucus Mod /LPF Test 08/27/19 02:56 08/27/19 03:17 08/27/19 03:30 White Blood Count 8.4 x10^3/uL (4.0-11.0) Red Blood Count 5.31 x10^6/uL (4.30-5.70) Hemoglobin 14.2 g/dL (13.0-17.5) Hematocrit 43.3 % (39.0-53.0) Mean Corpuscular Volume 82 fL (79-100) Mean Corpuscular Hemoglobin 27 pg (25-35) Mean Corpuscular Hemoglobin Concent 33 g/dL (31-37) Red Cell Distribution Width 14.7 % (11.5-14.5) Platelet Count 225 x10^3/uL (140-400) Neutrophils (%) (Auto) 58 % (31-73) Lymphocytes (%) (Auto) 22 % (24-48) Monocytes (%) (Auto) 18 % (0-9) Eosinophils (%) (Auto) 2 % (0-3) Basophils (%) (Auto) 0 % (0-3) Neutrophils # (Auto) 4.9 x10^3/uL (1.8-7.7) Lymphocytes # (Auto) 1.9 x10^3/uL (1.0-4.8) Monocytes # (Auto) 1.5 x10^3/uL (0.0-1.1) Eosinophils # (Auto) 0.2 x10^3/uL (0.0-0.7) Basophils # (Auto) 0.0 x10^3/uL (0.0-0.2) Sodium Level 138 mmol/L (136-145) Potassium Level 3.3 mmol/L (3.5-5.1) Chloride Level 99 mmol/L (98-107) Carbon Dioxide Level 28 mmol/L (21-32) Anion Gap 11 (6-14) Blood Urea Nitrogen 11 mg/dL (8-26) Creatinine 1.2 mg/dL (0.7-1.3) Estimated GFR (Cockcroft-Gault) 72.4 BUN/Creatinine Ratio 9 (6-20) Glucose Level 94 mg/dL (70-99) Calcium Level 8.6 mg/dL (8.5-10.1) Total Bilirubin 1.0 mg/dL (0.2-1.0) Aspartate Amino Transf (AST/SGOT) 29 U/L (15-37) Alanine Aminotransferase (ALT/SGPT) 32 U/L (16-63) Alkaline Phosphatase 77 U/L (46-116) Total Protein 7.5 g/dL (6.4-8.2) Albumin 2.7 g/dL (3.4-5.0) Albumin/Globulin Ratio 0.6 (1.0-1.7) O2 Saturation 95 % (92-99) Arterial Blood pH 7.47 (7.35-7.45) Arterial Blood pCO2 at Patient Temp 38 mmHg (35-46) Arterial Blood pO2 at Patient Temp 72 mmHg (65-108) Arterial Blood HCO3 27 mmol/L (21-28) Arterial Blood Base Excess 3 mmol/L (-3-3) FiO2 50 Influenza Type A Antigen Negative (NEGATIVE) Influenza Type B Antigen Negative (NEGATIVE) Laboratory Tests Test 08/26/19 16:15 08/27/19 02:56 08/27/19 03:17 08/27/19 03:30 White Blood Count 7.8 x10^3/uL (4.0-11.0) 8.4 x10^3/uL (4.0-11.0) Red Blood Count 5.09 x10^6/uL (4.30-5.70) 5.31 x10^6/uL (4.30-5.70) Hemoglobin 13.8 g/dL (13.0-17.5) 14.2 g/dL (13.0-17.5) Hematocrit 41.7 % (39.0-53.0) 43.3 % (39.0-53.0) Mean Corpuscular Volume 82 fL (79-100) 82 fL (79-100) Mean Corpuscular Hemoglobin 27 pg (25-35) 27 pg (25-35) Mean Corpuscular Hemoglobin Concent 33 g/dL (31-37) 33 g/dL (31-37) Red Cell Distribution Width 14.6 % (11.5-14.5) 14.7 % (11.5-14.5) Platelet Count 193 x10^3/uL (140-400) 225 x10^3/uL (140-400) Neutrophils (%) (Auto) 68 % (31-73) 58 % (31-73) Lymphocytes (%) (Auto) 17 % (24-48) 22 % (24-48) Monocytes (%) (Auto) 13 % (0-9) 18 % (0-9) Eosinophils (%) (Auto) 2 % (0-3) 2 % (0-3) Basophils (%) (Auto) 0 % (0-3) 0 % (0-3) Neutrophils # (Auto) 5.3 x10^3/uL (1.8-7.7) 4.9 x10^3/uL (1.8-7.7) Lymphocytes # (Auto) 1.4 x10^3/uL (1.0-4.8) 1.9 x10^3/uL (1.0-4.8) Monocytes # (Auto) 1.0 x10^3/uL (0.0-1.1) 1.5 x10^3/uL (0.0-1.1) Eosinophils # (Auto) 0.1 x10^3/uL (0.0-0.7) 0.2 x10^3/uL (0.0-0.7) Basophils # (Auto) 0.0 x10^3/uL (0.0-0.2) 0.0 x10^3/uL (0.0-0.2) Sodium Level 136 mmol/L (136-145) 138 mmol/L (136-145) Potassium Level 3.4 mmol/L (3.5-5.1) 3.3 mmol/L (3.5-5.1) Chloride Level 99 mmol/L (98-107) 99 mmol/L (98-107) Carbon Dioxide Level 28 mmol/L (21-32) 28 mmol/L (21-32) Anion Gap 9 (6-14) 11 (6-14) Blood Urea Nitrogen 13 mg/dL (8-26) 11 mg/dL (8-26) Creatinine 1.3 mg/dL (0.7-1.3) 1.2 mg/dL (0.7-1.3) Estimated GFR (Cockcroft-Gault) 66.0 72.4 Glucose Level 113 mg/dL (70-99) 94 mg/dL (70-99) Calcium Level 8.5 mg/dL (8.5-10.1) 8.6 mg/dL (8.5-10.1) BUN/Creatinine Ratio 9 (6-20) Total Bilirubin 1.0 mg/dL (0.2-1.0) Aspartate Amino Transf (AST/SGOT) 29 U/L (15-37) Alanine Aminotransferase (ALT/SGPT) 32 U/L (16-63) Alkaline Phosphatase 77 U/L (46-116) Total Protein 7.5 g/dL (6.4-8.2) Albumin 2.7 g/dL (3.4-5.0) Albumin/Globulin Ratio 0.6 (1.0-1.7) O2 Saturation 95 % (92-99) Arterial Blood pH 7.47 (7.35-7.45) Arterial Blood pCO2 at Patient Temp 38 mmHg (35-46) Arterial Blood pO2 at Patient Temp 72 mmHg (65-108) Arterial Blood HCO3 27 mmol/L (21-28) Arterial Blood Base Excess 3 mmol/L (-3-3) FiO2 50 Influenza Type A Antigen Negative (NEGATIVE) Influenza Type B Antigen Negative (NEGATIVE) Microbiology 08/25/19 Blood Culture - Preliminary, Resulted NO GROWTH AFTER 1 DAY Medications Current Medications Sodium Chloride 1,000 ml @ 1,000 mls/hr 1X ONCE IV Last administered on 08/25/19at 12:02; Start 08/25/19 at 12:00; Stop 08/25/19 at 12:59; Status DC Fentanyl Citrate (Fentanyl 2ml Vial) 50 mcg 1X ONCE IVP Last administered on 08/25/19 12:12; Start 08/25/19 at 12:15; Stop 08/25/19 at 12:16; Status DC Ondansetron HCl (Zofran) 4 mg 1X ONCE IV Last administered on 08/25/19at 1 2:11; Start 08/25/19 at 12:15; Stop 08/25/19 at 12:16; Status DC Ceftriaxone Sodium (Rocephin) 1 gm 1X ONCE IVP Last administered on 08/25/19at 15:16; Start 08/25/19 at 14:15; Stop 08/25/19 at 14:16; Status DC Potassium Chloride (Klor-Con) 40 meq 1X ONCE PO Last administered on 08/25/19 17:17; Start 08/25/19 at 15:00; Stop 08/25/19 at 15:01; Status DC Sodium Chloride 1,000 ml @ 125 mls/hr Q8H IV Last administered on 08/26/19 05:16; Start 08/25/19 at 14:51; Stop 08/26/19 at 14:50; Status DC Acetaminophen (Tylenol) 650 mg PRN Q6HRS PRN PO mild pain/fever Last administered on 08/27/19 02:57; Start 08/25/19 at 16:45 Allopurinol (Zyloprim) 300 mg DAILY PO Last administered on 08/27/19 09:00; Start 08/26/19 at 09:00 Amlodipine Besylate (Norvasc) 10 mg DAILY PO Last administered on 08/27/19 08:59; Start 08/26/19 at 09:00 Hydrochlorothiazide (Hydrodiuril) 25 mg DAILY PO Last administered on 08/27/19 09:00; Start 08/26/19 at 09:00 Lisinopril (Prinivil) 40 mg DAILY PO Last administered on 08/27/19 08:59; Start 08/26/19 at 09:00 Metoprolol Succinate (Toprol Xl) 200 mg DAILY PO Last administered on 08/27 09:00; Start 08/26/19 at 09:00 Vancomycin HCl (Vanco Per Pharmacy) 1 each PRN DAILY PRN MC SEE COMMENTS Last administered on 12/21/19at 19:22; Start 08/25/19 at 17:45 Piperacillin Sod/ Tazobactam Sod (Zosyn Per Pharmacy) 1 each PRN DAILY PRN MC S EE COMMENTS; Start 08/25/19 at 17:45 Vancomycin HCl 2 gm/Sodium Chloride 500 ml @ 250 mls/hr 1X ONCE IV Last administered on 08/25/19at 18:35; Start 08/25/19 at 18:30; Stop 08/25/19 at 20:29; Status DC Piperacillin Sod/ Tazobactam Sod 3.375 gm/Sodium Chloride 50 ml @ 100 mls/hr Q6HRS IV Last administered on 08/27/19at 05:33; Start 08/25/19 at 18:00 Vancomycin HCl 1.5 gm/Sodium Chloride 500 ml @ 250 mls/hr Q24H IV Last administered on 08/26/19at 19:54; Start 08/26/19 at 18:00 Vancomycin HCl (Vancomycin Trough Level) 1 each 1X ONCE MC ; Start 08/27/19 at 17:30; Stop 08/27/19 at 17:31 Guaifenesin (Robitussin Dm) 10 ml PRN Q4HRS PRN PO COUGH Last administered on 08/27/19at 08:59; Start 08/26/19 at 11:45 Lactobacillus Rhamnosus (Culturelle) 1 cap BID PO Last administered on 08/27/19at 09:00; Start 08/26/19 at 21:00 Active Scripts Active Reported Metoprolol Succinate ( Xl ) (Metoprolol Succinate) 200 Mg Tab.er.24h 1 Tab PO DAILY Hydrochlorothiazide Tablet (Hydrochlorothiazide) 25 Mg Tablet 25 Mg PO DAILY Allopurinol 300 Mg Tablet 1 Tab PO DAILY Lisinopril 40 Mg Tablet 1 Tab PO DAILY Amlodipine Besylate 10 Mg Tablet 10 Mg PO DAILY Vitals/I & O Vital Sign - Last 24 Hours 08/26/19 08/26/19 08/26/19 08/26/19 10:56 15:42 19:10 20:00 Temp 100.2 98.9 102.0 100.2 98.9 102.0 Pulse 90 109 89 Resp 18 18 18 B/P (MAP) 126/72 (90) 149/76 (100) 160/74 (102) Pulse Ox 95 94 93 O2 Delivery Room Air Room Air Room Air Room Air 08/26/19 08/27/19 08/27/19 08/27/19 23:10 03:10 07:52 08:59 Temp 100.4 100.2 98.2 100.4 100.2 98.2 Pulse 76 86 79 79 Resp 18 19 18 B/P (MAP) 141/70 (93) 154/85 (108) 147/83 (104) 147/83 Pulse Ox 95 91 96 O2 Delivery Nasal Cannula Nasal Cannula Nasal Cannula O2 Flow Rate 2.5 3.0 3.0 08/27/19 08/27/19 08:59 09:00 Pulse 79 79 B/P (MAP) 147/83 147/83 Intake and Output 08/26/19 08/26/19 08/27/19 15:00 23:00 07:00 Intake Total 800 ml 480 ml 500 ml Output Total 200 ml Balance 800 ml 480 ml 300 ml ALIVIA MALDONADO MD Aug 27, 2019 10:04
[2019-08-27 11:52] VITALS: BP 158/98
[2019-08-27] MEDS ORDERED: ONDANSETRON PF 4 MG/2 ML VIAL. IVP PRN (12:30)
--- NOTE | 2019-08-27 12:48 | PDOC ---
Infectious Disease Note Subjective: Subjective pt has fevers, nausea, vomiting, diarrhea no groin pain has dysuria no sob or cough Vital Signs: Vital Signs Vital Signs Date Time Temp Pulse Resp B/P (MAP) Pulse Ox O2 Delivery O2 Flow Rate FiO2 08/27/19 11:52 99.3 87 20 158/98 (118) 94 Nasal Cannula 3.0 99.3 Physical Exam: PHYSICAL EXAM GENERAL: The patient is propped up in bed, alert HEENT: Pupils equally round. Oropharynx is pink and moist. NECK: Supple. LUNGS: Clear. HEART: S1, S2. ABDOMEN: Obese, soft, nontender with bowel sounds present. EXTREMITIES: No gross edema or cyanosis. SKIN: Warm to touch without signs of rash. NEUROLOGIC: Alert, answering questions appropriately. He moves all extremities. Medications: Inpatient Meds: Current Medications Medications (Trade) Dose Ordered Sig/Taj Start Time Stop Time Status Last Admin Dose Admin Acetaminophen (Tylenol) 650 mg PRN Q6HRS PRN 08/25/19 16:45 08/27/19 12:26 650 MG Allopurinol (Zyloprim) 300 mg DAILY 08/26/19 09:00 08/27/19 09:00 300 MG Amlodipine Besylate (Norvasc) 10 mg DAILY 08/26/19 09:00 08/27/19 08:59 10 MG Ceftriaxone Sodium (Rocephin) 1 gm 1X ONCE 08/25/19 14:15 08/25/19 14:16 DC 08/25/19 15:16 1 GM Fentanyl Citrate (Fentanyl 2ml Vial) 50 mcg 1X ONCE 08/25/19 12:15 08/25/19 12:16 DC 08/25/19 12:12 50 MCG Guaifenesin (Robitussin Dm) 10 ml PRN Q4HRS PRN 08/26/19 11:45 08/27/19 08:59 10 ML Hydrochlorothiazide (Hydrodiuril) 25 mg DAILY 08/26/19 09:00 08/27/19 09:00 25 MG Lactobacillus Rhamnosus (Culturelle) 1 cap BID 08/26/19 21:00 08/27/19 09:00 1 CAP Lisinopril (Prinivil) 40 mg DAILY 08/26/19 09:00 08/27/19 08:59 40 MG Metoprolol Succinate (Toprol Xl) 200 mg DAILY 08/26/19 09:00 08/27/19 09:00 200 MG Ondansetron HCl (Zofran) 4 mg PRN Q4HRS PRN 08/27/19 12:30 08/27/19 12:25 4 MG Piperacillin Sod/ Tazobactam Sod (Zosyn Per Pharmacy) 1 each PRN DAILY PRN 08/25/19 17:45 Piperacillin Sod/ Tazobactam Sod 3.375 gm/Sodium Chloride 50 ml @ 100 mls/hr Q6HRS 08/25/19 18:00 08/27/19 12:26 100 MLS/HR Potassium Chloride (Klor-Con) 40 meq 1X ONCE 08/25/19 15:00 08/25/19 15:01 DC 08/25/19 17:17 40 MEQ Sodium Chloride 1,000 ml @ 125 mls/hr Q8H 08/25/19 14:51 08/26/19 14:50 DC 08/26/19 05:16 125 MLS/HR Vancomycin HCl (Vanco Per Pharmacy) 1 each PRN DAILY PRN 08/25/19 17:45 08/25/19 19:22 1 EACH Vancomycin HCl (Vancomycin Trough Level) 1 each 1X ONCE 08/27/19 17:30 08/27/19 17:31 Vancomycin HCl 1.5 gm/Sodium Chloride 500 ml @ 250 mls/hr Q24H 08/26/19 18:00 08/26/19 19:54 250 MLS/HR Vancomycin HCl 2 gm/Sodium Chloride 500 ml @ 250 mls/hr 1X ONCE 08/25/19 18:30 08/25/19 20:29 DC 08/25/19 18:35 250 MLS/HR Labs: Lab Laboratory Tests Test 08/26/19 16:15 08/27/19 02:56 08/27/19 03:17 08/27/19 03:30 White Blood Count 7.8 x10^3/uL (4.0-11.0) 8.4 x10^3/uL (4.0-11.0) Red Blood Count 5.09 x10^6/uL (4.30-5.70) 5.31 x10^6/uL (4.30-5.70) Hemoglobin 13.8 g/dL (13.0-17.5) 14.2 g/dL (13.0-17.5) Hematocrit 41.7 % (39.0-53.0) 43.3 % (39.0-53.0) Mean Corpuscular Volume 82 fL (79-100) 82 fL (79-100) Mean Corpuscular Hemoglobin 27 pg (25-35) 27 pg (25-35) Mean Corpuscular Hemoglobin Concent 33 g/dL (31-37) 33 g/dL (31-37) Red Cell Distribution Width 14.6 % (11.5-14.5) 14.7 % (11.5-14.5) Platelet Count 193 x10^3/uL (140-400) 225 x10^3/uL (140-400) Neutrophils (%) (Auto) 68 % (31-73) 58 % (31-73) Lymphocytes (%) (Auto) 17 % (24-48) 22 % (24-48) Monocytes (%) (Auto) 13 % (0-9) 18 % (0-9) Eosinophils (%) (Auto) 2 % (0-3) 2 % (0-3) Basophils (%) (Auto) 0 % (0-3) 0 % (0-3) Neutrophils # (Auto) 5.3 x10^3/uL (1.8-7.7) 4.9 x10^3/uL (1.8-7.7) Lymphocytes # (Auto) 1.4 x10^3/uL (1.0-4.8) 1.9 x10^3/uL (1.0-4.8) Monocytes # (Auto) 1.0 x10^3/uL (0.0-1.1) 1.5 x10^3/uL (0.0-1.1) Eosinophils # (Auto) 0.1 x10^3/uL (0.0-0.7) 0.2 x10^3/uL (0.0-0.7) Basophils # (Auto) 0.0 x10^3/uL (0.0-0.2) 0.0 x10^3/uL (0.0-0.2) Sodium Level 136 mmol/L (136-145) 138 mmol/L (136-145) Potassium Level 3.4 mmol/L (3.5-5.1) 3.3 mmol/L (3.5-5.1) Chloride Level 99 mmol/L (98-107) 99 mmol/L (98-107) Carbon Dioxide Level 28 mmol/L (21-32) 28 mmol/L (21-32) Anion Gap 9 (6-14) 11 (6-14) Blood Urea Nitrogen 13 mg/dL (8-26) 11 mg/dL (8-26) Creatinine 1.3 mg/dL (0.7-1.3) 1.2 mg/dL (0.7-1.3) Estimated GFR (Cockcroft-Gault) 66.0 72.4 Glucose Level 113 mg/dL (70-99) 94 mg/dL (70-99) Calcium Level 8.5 mg/dL (8.5-10.1) 8.6 mg/dL (8.5-10.1) BUN/Creatinine Ratio 9 (6-20) Total Bilirubin 1.0 mg/dL (0.2-1.0) Aspartate Amino Transf (AST/SGOT) 29 U/L (15-37) Alanine Aminotransferase (ALT/SGPT) 32 U/L (16-63) Alkaline Phosphatase 77 U/L (46-116) Total Protein 7.5 g/dL (6.4-8.2) Albumin 2.7 g/dL (3.4-5.0) Albumin/Globulin Ratio 0.6 (1.0-1.7) O2 Saturation 95 % (92-99) Arterial Blood pH 7.47 (7.35-7.45) Arterial Blood pCO2 at Patient Temp 38 mmHg (35-46) Arterial Blood pO2 at Patient Temp 72 mmHg (65-108) Arterial Blood HCO3 27 mmol/L (21-28) Arterial Blood Base Excess 3 mmol/L (-3-3) FiO2 50 Influenza Type A Antigen Negative (NEGATIVE) Influenza Type B Antigen Negative (NEGATIVE) Objective: Assessment: 1. Urinary tract infection present on admission. 2. Fever. 3. Leukocytosis. 4. Lactic acidosis. 5. Diarrhea. 6. Questionable seizure versus syncopal episode. 7. Hypertension. Plan: Plan of Care cont Zosyn jovani vanco start IV zyvox f/u cultures,still pending C. diff pending stool cultures Monitor WBC, temp and renal function closely Labs in am Maintain aspiration precautions d/w daughter Supportive care d/w DEION Da Silva MD Aug 27, 2019 12:48
--- NOTE | 2019-08-27 13:24 | CONS ---
DATE OF CONSULTATION: PULMONARY CONSULTATION ATTENDING PHYSICIAN: Briana Schwartz MD REASON FOR CONSULTATION: Hypoxia. HISTORY OF PRESENT ILLNESS: The patient is a 69-year-old who does not have a history of seizure, but he came into the hospital after a seizure. The patient's nurse noted that oxygen level was low and that he was in the mid 80s, the patient has to be place on oxygen. He also had a fever of 100.4. The states he has been short of breath for 2 years. He also has a cough, which has been chronic as well. The thinks that the dyspnea has been progressive over a period of months. His influenza screen was negative. His chest x-ray showed slightly prominent interstitial markings, but no definite effusions or consolidation seen. The patient has worked in [employer] for 47 years. Denies any headaches, no nausea, vomiting, no diarrhea. He responds to questions. No focal weakness. PAST MEDICAL HISTORY: History of seizure, hypertension, gout. PAST SURGICAL HISTORY: No recent surgeries. FAMILY HISTORY: Hyperlipidemia. SOCIAL HISTORY: Does not smoke cigarettes. MEDICATIONS: Reviewed as listed in the [facility]AD. ALLERGIES: None. REVIEW OF SYSTEMS: Ten-point system obtained. Pertinent positives discussed in my history of present illness, otherwise noncontributory. All systems that were negative were reviewed as well. PHYSICAL EXAMINATION: VITAL SIGNS: On examination, his vital signs were reviewed. T-max of 100.4. Blood pressure stable, pulse ox 94% on 3 liters. HEENT: Sclerae nonicteric. NECK: Supple. LUNGS: With few faint crackles at the bases. CARDIOVASCULAR: Regular rate and rhythm. ABDOMEN: Soft, nontender, obese. EXTREMITIES: With no pitting edema. LABORATORY DATA: Reviewed. His ABGs with a pH of 7.47, pCO2 of 30 and a pO2 of 72 on 50% FiO2. BUN 11, creatinine 1.2. Influenza screen is negative. IMPRESSION: 1. Acute hypoxic respiratory failure in a patient who comes in with fever, but according to the , he has dyspnea for the last 2 years. He also has a chronic cough. He has worked around [employer] for 47 years. He has a fever of 100.4. I suspect that he may have underlying fibrosis or interstitial lung disease and may have developed superimposed viral infection. However, since he had the seizure, a MOLD CHANGER etiology for the fever needs to be ruled out as well. 2. No significant tobacco history. RECOMMENDATIONS: 1. We will continue present broad-spectrum antibiotic. 2. Continue oxygen. 3. Noncontrast CT chest. 4. Follow Neurology recommendations. 5. Discussed with and RN. CHARLES JAKC MD DR: HENRY/diana JOB#: [id number] / [id number] YFN
--- NOTE | 2019-08-27 14:38 | PDOC ---
PROGRESS NOTES Subjective Subjective SEEN IN FOLLOW UP OF CKD2 Objective Objective Vital Signs Date Time Temp Pulse Resp B/P (MAP) Pulse Ox O2 Delivery O2 Flow Rate FiO2 08/27/19 11:52 99.3 87 20 158/98 (118) 94 Nasal Cannula 3.0 99.3 Intake and Output 08/27/19 07:00 Intake Total 1780 ml Output Total 200 ml Balance 1580 ml Intake Oral 1780 ml Output Urine Total 200 ml # Voids 7 Physical Exam Abdomen: Normal bowel sounds, Soft, No tenderness, No hepatosplenomegaly, No masses Heart: Regular rate, Normal S1, Normal S2, No murmurs, Gallops Extremities: No clubbing, No cyanosis, No edema, Normal pulses, No tenderness/swelling General: Alert, Oriented X3, Cooperative, No acute distress Lungs: Clear to auscultation, Normal air movement Psych/Mental Status: Mental status NL, Mood NL Diagnosis RENAL FAILURE: Chronic (CKD stage II) Assessment Assessment Problems Medical Problems: (1) Diarrhea Status: Acute (2) Elevated bilirubin Status: Acute (3) Elevated lactic acid level Status: Acute (4) Hypokalemia Status: Acute (5) Leukocytosis Status: Acute (6) Seizure Status: Acute Plan Plan of Care RENAL FUNCTION IS BETTER. NOW CKD 2. RENAL US IS OK. WILL SIGN OFF Comment Review of Relevant I have reviewed the following items silvestre (where applicable) has been applied. Labs Laboratory Tests Test 08/25/19 15:07 08/26/19 00:01 08/26/19 16:15 08/27/19 02:56 Lactic Acid Level 1.4 mmol/L (0.4-2.0) Urine Collection Type Unknown Urine Color Holly Urine Clarity Clear Urine pH 5.0 Urine Specific [place] 1.020 Urine Protein Negative mg/dL (NEG-TRACE) Urine Glucose (UA) Negative mg/dL (NEG) Urine Ketones (Stick) Negative mg/dL (NEG) Urine Blood Large (NEG) Urine Nitrite Negative (NEG) Urine Bilirubin Negative (NEG) Urine Urobilinogen Dipstick 2.0 mg/dL (0.2 mg/dL) Urine Leukocyte Esterase Large (NEG) Urine RBC Occ /HPF (0-2) Urine WBC Tntc /HPF (0-4) Urine Squamous Epithelial Cells Occ /LPF Urine Bacteria Few /HPF (0-FEW) Urine Mucus Mod /LPF White Blood Count 7.8 x10^3/uL (4.0-11.0) 8.4 x10^3/uL (4.0-11.0) Red Blood Count 5.09 x10^6/uL (4.30-5.70) 5.31 x10^6/uL (4.30-5.70) Hemoglobin 13.8 g/dL (13.0-17.5) 14.2 g/dL (13.0-17.5) Hematocrit 41.7 % (39.0-53.0) 43.3 % (39.0-53.0) Mean Corpuscular Volume 82 fL (79-100) 82 fL (79-100) Mean Corpuscular Hemoglobin 27 pg (25-35) 27 pg (25-35) Mean Corpuscular Hemoglobin Concent 33 g/dL (31-37) 33 g/dL (31-37) Red Cell Distribution Width 14.6 % (11.5-14.5) 14.7 % (11.5-14.5) Platelet Count 193 x10^3/uL (140-400) 225 x10^3/uL (140-400) Neutrophils (%) (Auto) 68 % (31-73) 58 % (31-73) Lymphocytes (%) (Auto) 17 % (24-48) 22 % (24-48) Monocytes (%) (Auto) 13 % (0-9) 18 % (0-9) Eosinophils (%) (Auto) 2 % (0-3) 2 % (0-3) Basophils (%) (Auto) 0 % (0-3) 0 % (0-3) Neutrophils # (Auto) 5.3 x10^3/uL (1.8-7.7) 4.9 x10^3/uL (1.8-7.7) Lymphocytes # (Auto) 1.4 x10^3/uL (1.0-4.8) 1.9 x10^3/uL (1.0-4.8) Monocytes # (Auto) 1.0 x10^3/uL (0.0-1.1) 1.5 x10^3/uL (0.0-1.1) Eosinophils # (Auto) 0.1 x10^3/uL (0.0-0.7) 0.2 x10^3/uL (0.0-0.7) Basophils # (Auto) 0.0 x10^3/uL (0.0-0.2) 0.0 x10^3/uL (0.0-0.2) Sodium Level 136 mmol/L (136-145) 138 mmol/L (136-145) Potassium Level 3.4 mmol/L (3.5-5.1) 3.3 mmol/L (3.5-5.1) Chloride Level 99 mmol/L (98-107) 99 mmol/L (98-107) Carbon Dioxide Level 28 mmol/L (21-32) 28 mmol/L (21-32) Anion Gap 9 (6-14) 11 (6-14) Blood Urea Nitrogen 13 mg/dL (8-26) 11 mg/dL (8-26) Creatinine 1.3 mg/dL (0.7-1.3) 1.2 mg/dL (0.7-1.3) Estimated GFR (Cockcroft-Gault) 66.0 72.4 Glucose Level 113 mg/dL (70-99) 94 mg/dL (70-99) Calcium Level 8.5 mg/dL (8.5-10.1) 8.6 mg/dL (8.5-10.1) BUN/Creatinine Ratio 9 (6-20) Total Bilirubin 1.0 mg/dL (0.2-1.0) Aspartate Amino Transf (AST/SGOT) 29 U/L (15-37) Alanine Aminotransferase (ALT/SGPT) 32 U/L (16-63) Alkaline Phosphatase 77 U/L (46-116) Total Protein 7.5 g/dL (6.4-8.2) Albumin 2.7 g/dL (3.4-5.0) Albumin/Globulin Ratio 0.6 (1.0-1.7) Test 08/27/19 03:17 08/27/19 03:30 O2 Saturation 95 % (92-99) Arterial Blood pH 7.47 (7.35-7.45) Arterial Blood pCO2 at Patient Temp 38 mmHg (35-46) Arterial Blood pO2 at Patient Temp 72 mmHg (65-108) Arterial Blood HCO3 27 mmol/L (21-28) Arterial Blood Base Excess 3 mmol/L (-3-3) FiO2 50 Influenza Type A Antigen Negative (NEGATIVE) Influenza Type B Antigen Negative (NEGATIVE) Laboratory Tests Test 08/26/19 16:15 08/27/19 02:56 08/27/19 03:17 08/27/19 03:30 White Blood Count 7.8 x10^3/uL (4.0-11.0) 8.4 x10^3/uL (4.0-11.0) Red Blood Count 5.09 x10^6/uL (4.30-5.70) 5.31 x10^6/uL (4.30-5.70) Hemoglobin 13.8 g/dL (13.0-17.5) 14.2 g/dL (13.0-17.5) Hematocrit 41.7 % (39.0-53.0) 43.3 % (39.0-53.0) Mean Corpuscular Volume 82 fL (79-100) 82 fL (79-100) Mean Corpuscular Hemoglobin 27 pg (25-35) 27 pg (25-35) Mean Corpuscular Hemoglobin Concent 33 g/dL (31-37) 33 g/dL (31-37) Red Cell Distribution Width 14.6 % (11.5-14.5) 14.7 % (11.5-14.5) Platelet Count 193 x10^3/uL (140-400) 225 x10^3/uL (140-400) Neutrophils (%) (Auto) 68 % (31-73) 58 % (31-73) Lymphocytes (%) (Auto) 17 % (24-48) 22 % (24-48) Monocytes (%) (Auto) 13 % (0-9) 18 % (0-9) Eosinophils (%) (Auto) 2 % (0-3) 2 % (0-3) Basophils (%) (Auto) 0 % (0-3) 0 % (0-3) Neutrophils # (Auto) 5.3 x10^3/uL (1.8-7.7) 4.9 x10^3/uL (1.8-7.7) Lymphocytes # (Auto) 1.4 x10^3/uL (1.0-4.8) 1.9 x10^3/uL (1.0-4.8) Monocytes # (Auto) 1.0 x10^3/uL (0.0-1.1) 1.5 x10^3/uL (0.0-1.1) Eosinophils # (Auto) 0.1 x10^3/uL (0.0-0.7) 0.2 x10^3/uL (0.0-0.7) Basophils # (Auto) 0.0 x10^3/uL (0.0-0.2) 0.0 x10^3/uL (0.0-0.2) Sodium Level 136 mmol/L (136-145) 138 mmol/L (136-145) Potassium Level 3.4 mmol/L (3.5-5.1) 3.3 mmol/L (3.5-5.1) Chloride Level 99 mmol/L (98-107) 99 mmol/L (98-107) Carbon Dioxide Level 28 mmol/L (21-32) 28 mmol/L (21-32) Anion Gap 9 (6-14) 11 (6-14) Blood Urea Nitrogen 13 mg/dL (8-26) 11 mg/dL (8-26) Creatinine 1.3 mg/dL (0.7-1.3) 1.2 mg/dL (0.7-1.3) Estimated GFR (Cockcroft-Gault) 66.0 72.4 Glucose Level 113 mg/dL (70-99) 94 mg/dL (70-99) Calcium Level 8.5 mg/dL (8.5-10.1) 8.6 mg/dL (8.5-10.1) BUN/Creatinine Ratio 9 (6-20) Total Bilirubin 1.0 mg/dL (0.2-1.0) Aspartate Amino Transf (AST/SGOT) 29 U/L (15-37) Alanine Aminotransferase (ALT/SGPT) 32 U/L (16-63) Alkaline Phosphatase 77 U/L (46-116) Total Protein 7.5 g/dL (6.4-8.2) Albumin 2.7 g/dL (3.4-5.0) Albumin/Globulin Ratio 0.6 (1.0-1.7) O2 Saturation 95 % (92-99) Arterial Blood pH 7.47 (7.35-7.45) Arterial Blood pCO2 at Patient Temp 38 mmHg (35-46) Arterial Blood pO2 at Patient Temp 72 mmHg (65-108) Arterial Blood HCO3 27 mmol/L (21-28) Arterial Blood Base Excess 3 mmol/L (-3-3) FiO2 50 Influenza Type A Antigen Negative (NEGATIVE) Influenza Type B Antigen Negative (NEGATIVE) Microbiology 08/25/19 Blood Culture - Preliminary, Resulted NO GROWTH AFTER 2 DAYS Medications Current Medications Sodium Chloride 1,000 ml @ 1,000 mls/hr 1X ONCE IV Last administered on 08/25/19at 12:02; Start 08/25/19 at 12:00; Stop 08/25/19 at 12:59; Status DC Fentanyl Citrate (Fentanyl 2ml Vial) 50 mcg 1X ONCE IVP Last administered on 08/25/19at 12:12; Start 08/25/19 at 12:15; Stop 08/25/19 at 12:16; Status DC Ondansetron HCl (Zofran) 4 mg 1X ONCE IV Last administered on 08/25/19at 12:11; Start 08/25/19 at 12:15; Stop 08/25/19 at 12:16; Status DC Ceftriaxone Sodium (Rocephin) 1 gm 1X ONCE IVP Last administered on 08/25/19at 15:16; Start 08/25/19 at 14:15; Stop 08/25/19 at 14:16; Status DC Potassium Chloride (Klor-Con) 40 meq 1X ONCE PO Last administered on 08/25/19at 17:17; Start 08/25/19 at 15:00; Stop 08/25/19 at 15:01; Status DC Sodium Chloride 1,000 ml @ 125 mls/hr Q8H IV Last administered on 08/26/19at 05:16; Start 08/25/19 at 14:51; Stop 08/26/19 at 14:50; Status DC Acetaminophen (Tylenol) 650 mg PRN Q6HRS PRN PO mild pain/fever Last administered on 08/27/19at 12:26; Start 08/25/19 at 16:45 Allopurinol (Zyloprim) 300 mg DAILY PO Last administered on 08/27/19at 09:00; Start 08/26/19 at 09:00 Amlodipine Besylate (Norvasc) 10 mg DAILY PO Last administered on 08/27/19at 08:59; Start 08/26/19 at 09:00 Hydrochlorothiazide (Hydrodiuril) 25 mg DAILY PO Last administered on 08/27/19at 09:00; Start 08/26/19 at 09:00 Lisinopril (Prinivil) 40 mg DAILY PO Last administered on 08/27/19at 08:59; Start 08/26/19 at 09:00 Metoprolol Succinate (Toprol Xl) 200 mg DAILY PO Last administered on at 09:00; Start 08/26/19 at 09:00 Vancomycin HCl (Vanco Per Pharmacy) 1 each PRN DAILY PRN MC SEE COMMENTS Last administered on 08/25/19at 19:22; Start 08/25/19 at 17:45; Stop 08/27/19 at 13:43; Status DC Piperacillin Sod/ Tazobactam Sod (Zosyn Per Pharmacy) 1 each PRN DAILY PRN MC SEE COMMENTS; Start 08/25/19 at 17:45 Vancomycin HCl 2 gm/Sodium Chloride 500 ml @ 250 mls/hr 1X ONCE IV Last administered on 08/25/19at 18:35; Start 08/25/19 at 18:30; Stop 08/25/19 at 20:29; Status DC Piperacillin Sod/ Tazobactam Sod 3.375 gm/Sodium Chloride 50 ml @ 100 mls/hr Q6HRS IV Last administered on 08/27/19at 12:26; Start 08/25/19 at 18:00 Vancomycin HCl 1.5 gm/Sodium Chloride 500 ml @ 250 mls/hr Q24H IV Last administered on 08/26/19at 19:54; Start 08/26/19 at 18:00; Stop 08/27/19 at 13:43; Status DC Vancomycin HCl (Vancomycin Trough Level) 1 each 1X ONCE MC ; Start 08/27/19 at 17:30; Stop 08/27/19 at 13:44; Status DC Guaifenesin (Robitussin Dm) 10 ml PRN Q4HRS PRN PO COUGH Last administered on 08/27/19at 08:59; Start 08/26/19 at 11:45 Lactobacillus Rhamnosus (Culturelle) 1 cap BID PO Last administered on 08/27/19 at 09:00; Start 08/26/19 at 21:00 Ondansetron HCl (Zofran) 4 mg PRN Q4HRS PRN IVP NAUSEA/VOMITING Last administered on 08/27/19at 12:25; Start 08/27/19 at 12:30 Linezolid (Zyvox) 600 mg BID PO ; Start 08/27/19 at 21:00; Stop 08/27/19 at 13:56; Status DC Linezolid/Dextrose 300 ml @ 300 mls/hr Q12HR IV ; Start 08/27/19 at 21:00 Linezolid/Dextrose 300 ml @ 300 mls/hr 1X ONCE IV ; Start 08/27/19 at 14:30; Stop 08/27/19 at 15:29 Active Scripts Active Reported Metoprolol Succinate ( Xl ) (Metoprolol Succinate) 200 Mg Tab.er.24h 1 Tab PO DAILY Hydrochlorothiazide Tablet (Hydrochlorothiazide) 25 Mg Tablet 25 Mg PO DAILY Allopurinol 300 Mg Tablet 1 Tab PO DAILY Lisinopril 40 Mg Tablet 1 Tab PO DAILY Amlodipine Besylate 10 Mg Tablet 10 Mg PO DAILY Vitals/I & O Vital Sign - Last 24 Hours 08/26/19 08/26/19 08/26/19 08/26/19 15:42 19:10 20:00 23:10 Temp 98.9 102.0 100.4 98.9 102.0 100.4 Pulse 109 89 76 Resp 18 18 18 B/P (MAP) 149/76 (100) 160/74 (102) 141/70 (93) Pulse Ox 94 93 95 O2 Delivery Room Air Room Air Room Air Nasal Cannula O2 Flow Rate 2.5 08/27/19 08/27/19 08/27/19 08/27/19 03:10 07:52 08:59 08:59 Temp 100.2 98.2 100.2 98.2 Pulse 86 79 79 79 Resp 19 18 B/P (MAP) 154/85 (108) 147/83 (104) 147/83 147/83 Pulse Ox 91 96 O2 Delivery Nasal Cannula Nasal Cannula O2 Flow Rate 3.0 3.0 08/27/19 08/27/19 09:00 11:52 Temp 99.3 99.3 Pulse 79 87 Resp 20 B/P (MAP) 147/83 158/98 (118) Pulse Ox 94 O2 Delivery Nasal Cannula O2 Flow Rate 3.0 Intake and Output 08/26/19 08/26/19 08/27/19 15:00 23:00 07:00 Intake Total 800 ml 480 ml 500 ml Output Total 200 ml Balance 800 ml 480 ml 300 ml ALFONSO CERVANTES MD Aug 27, 2019 14:38
[2019-08-27 15:00] VITALS: BP 139/76
[2019-08-27] MEDS ORDERED: POTASSIUM CHLORIDE 20 MEQ TABLET.ER. PO ONE (15:00)
--- NOTE | 2019-08-27 18:09 | EEG ---
DATE OF SERVICE: 08/27/2019 OBJECTIVE: The patient is a 69-year-old male with possible new seizure. DESCRIPTION: This is a digital recording. Electrodes are placed according to international 10-20 system. Bipolar and referential montages are available. Activation procedures typically include hyperventilation and intermittent photic stimulation. INTERPRETATION: The waking background consists of 9-10 Hz, 50-100 microvolt activity, symmetrically distributed over parietooccipital regions and reactive to eye opening. Stage 2 sleep is achieved with normal electroencephalogram patterns. Hyperventilation and intermittent photic stimulation are noncontributory. IMPRESSION: This electroencephalogram with the patient awake and asleep is within normal limits. There is no focal, paroxysmal, or epileptiform activity. Thank you for letting us help with the patient's care. GABRIELLA SMILEY MD DR: RAYMUNDO/diana JOB#: [id number] / [id number] JOHN Lozano SHAWN MD
[2019-08-27 19:49] VITALS: BP 132/72
[2019-08-27] MEDS ORDERED: LINEZOLID 600 MG TABLET PO SCH (21:00)
[2019-08-27 23:41] VITALS: BP 137/78
[2019-08-28 03:23] VITALS: BP 145/80
[2019-08-28 05:08] LABS: CALCIUM 8.9 mg/dL (8.5-10.1); CREATININE 1.1 mg/dL (0.7-1.3); GFR 80.1; POTASSIUM 3.4 mmol/L (3.5-5.1)
[2019-08-28] MEDS: PIPERACILLIN/TAZOBACTAM 3.375 GM in IV NORMAL SALINE 50ML 50 ML IV SCH ×5 (05:52→17:34)
[2019-08-28 07:50] VITALS: BP 119/83
--- NOTE | 2019-08-28 08:19 | PDOC ---
Infectious Disease Note Subjective Subjective Tired, + cough O2 2L No fevers last 24 hours Vital Sign Vital Signs Vital Signs Date Time Temp Pulse Resp B/P (MAP) Pulse Ox O2 Delivery O2 Flow Rate FiO2 08/28/19 07:50 99.0 70 20 119/83 (95) 92 Room Air 99.0 08/27/19 20:00 3.0 Physical Exam PHYSICAL EXAM GENERAL: Propped up in bed, alert in NAD HEENT: Pupils equally round. Oropharynx is pink and moist. NECK: Supple. LUNGS: Clear. HEART: S1, S2. ABDOMEN: Obese, soft, nontender with bowel sounds present. EXTREMITIES: No gross edema or cyanosis. SKIN: Warm to touch without signs of rash. NEUROLOGIC: Alert, answering questions appropriately. Labs Lab Laboratory Tests Test 08/28/19 04:00 Sodium Level 137 mmol/L (136-145) Potassium Level 3.4 mmol/L (3.5-5.1) Chloride Level 99 mmol/L (98-107) Carbon Dioxide Level 27 mmol/L (21-32) Anion Gap 11 (6-14) Blood Urea Nitrogen 10 mg/dL (8-26) Creatinine 1.1 mg/dL (0.7-1.3) Estimated GFR (Cockcroft-Gault) 80.1 Glucose Level 112 mg/dL (70-99) Calcium Level 8.9 mg/dL (8.5-10.1) Micro Microbiology 08/25/19 Blood Culture - Preliminary, Resulted NO GROWTH AFTER 2 DAY Objective Assessment UTI, POA. UC still pending Fever Leukocytosis - improved Lactic acidosis Diarrhea ? seizure vs syncopal episode Hypertension Recent Tamiflu and Levaquin prior to admit Plan Plan of Care Continue Zosyn and zyvox Await CT chest Urine culture still pending C. diff pending stool cultures Maintain aspiration precautions Attending Co-Sign The patient was seen and interviewed as well as examined at the bedside. The chart was reviewed. The case was discussed. Agree with the plan of care. CHANEL BECK APRN Aug 28, 2019 08:19 EDION NEELY MD Aug 28, 2019 11:05
[2019-08-28] MEDS: ALLOPURINOL 300 MG TABLET. PO SCH (08:41)
[2019-08-28] MEDS: hydroCHLOROthiazide 25 MG TABLET PO SCH (08:41)
[2019-08-28] MEDS: LACTOBACILLUS RHAMNOSUS GG 1 CAPSULE. PO SCH ×2 (08:41→21:37)
[2019-08-28] MEDS: amLODIPine BESYLATE 10 MG TABLET PO SCH (08:41)
[2019-08-28] MEDS: LISINOPRIL 20 MG TABLET PO SCH (08:42)
[2019-08-28] MEDS: METOPROLOL SUCC 24HR ER 100 MG TAB.ER.24H. PO SCH (08:42)
--- NOTE | 2019-08-28 09:11 | NUR ---
PT/OT pending. Pt declined yesterday. SW will continue to follow.
--- NOTE | 2019-08-28 09:15 | PDOC ---
PROGRESS NOTES History of Present Illness History of Present Illness ASSESSMENT AND PLAN: Seizure, coagulopathy, leukocytosis, lactic acidosis, hypokalemia, hyponatremia, acute renal failure, malnutrition. HYPOXIC EPISODE 08/27 UTI SEPSIS SEVERE PROTEIN-CALORIC MALNUTRITION admitted. consult Neurology. empiric IV antibiotics D/C Zosyn and CONT vancomycin, consult Nephrology. Frequent labs, PT, OT, DVT prophylaxis. Full code. AVOID ANTICONVULSANTS at this time CT CHEST 08/27 RLL INFILTRATE 08/26 CONTINUE iv vanc and D/C Zosyn f/u cultures C. diff pending 08/28 CONTINUED FEVER IV ZYVOX STARTED T MAX 102 f REPLACED K 36 MIN PT EXAM, CHART REVIEW, > 50% OF TIME SPENT WITH EXAM, CHART REVIEW, PT CARE COORDINATION Vitals Vitals Vital Signs Date Time Temp Pulse Resp B/P (MAP) Pulse Ox O2 Delivery O2 Flow Rate FiO2 08/28/19 08:42 70 119/83 08/28/19 07:50 99.0 20 92 Room Air 99.0 08/27/19 20:00 3.0 Physical Exam Physical Exam GENERAL: Propped up in bed, alert in NAD HEENT: Pupils equally round. Oropharynx is pink and moist. NECK: Supple. LUNGS: Clear. HEART: S1, S2. ABDOMEN: Obese, soft, nontender with bowel sounds present. EXTREMITIES: No gross edema or cyanosis. SKIN: Warm to touch without signs of rash. NEUROLOGIC: Alert, answering questions appropriately. General: Alert, Oriented X3, Cooperative Heart: Regular rate Lungs: Clear, Crackles Abdomen: Normal bowel sounds, Soft, No tenderness Extremities: No cyanosis Labs LABS Laboratory Tests Test 08/28/19 04:00 Sodium Level 137 mmol/L (136-145) Potassium Level 3.4 mmol/L (3.5-5.1) Chloride Level 99 mmol/L (98-107) Carbon Dioxide Level 27 mmol/L (21-32) Anion Gap 11 (6-14) Blood Urea Nitrogen 10 mg/dL (8-26) Creatinine 1.1 mg/dL (0.7-1.3) Estimated GFR (Cockcroft-Gault) 80.1 Glucose Level 112 mg/dL (70-99) Calcium Level 8.9 mg/dL (8.5-10.1) Assessment and Plan Assessmemt and Plan Problems Medical Problems: (1) Diarrhea Status: Acute (2) Elevated bilirubin Status: Acute (3) Elevated lactic acid level Status: Acute (4) Hypokalemia Status: Acute (5) Leukocytosis Status: Acute (6) Seizure Status: Acute Comment Review of Relevant I have reviewed the following items silvestre (where applicable) has been applied. Labs Laboratory Tests Test 08/26/19 16:15 08/27/19 02:56 08/27/19 03:17 08/27/19 03:30 White Blood Count 7.8 x10^3/uL (4.0-11.0) 8.4 x10^3/uL (4.0-11.0) Red Blood Count 5.09 x10^6/uL (4.30-5.70) 5.31 x10^6/uL (4.30-5.70) Hemoglobin 13.8 g/dL (13.0-17.5) 14.2 g/dL (13.0-17.5) Hematocrit 41.7 % (39.0-53.0) 43.3 % (39.0-53.0) Mean Corpuscular Volume 82 fL (79-100) 82 fL (79-100) Mean Corpuscular Hemoglobin 27 pg (25-35) 27 pg (25-35) Mean Corpuscular Hemoglobin Concent 33 g/dL (31-37) 33 g/dL (31-37) Red Cell Distribution Width 14.6 % (11.5-14.5) 14.7 % (11.5-14.5) Platelet Count 193 x10^3/uL (140-400) 225 x10^3/uL (140-400) Neutrophils (%) (Auto) 68 % (31-73) 58 % (31-73) Lymphocytes (%) (Auto) 17 % (24-48) 22 % (24-48) Monocytes (%) (Auto) 13 % (0-9) 18 % (0-9) Eosinophils (%) (Auto) 2 % (0-3) 2 % (0-3) Basophils (%) (Auto) 0 % (0-3) 0 % (0-3) Neutrophils # (Auto) 5.3 x10^3/uL (1.8-7.7) 4.9 x10^3/uL (1.8-7.7) Lymphocytes # (Auto) 1.4 x10^3/uL (1.0-4.8) 1.9 x10^3/uL (1.0-4.8) Monocytes # (Auto) 1.0 x10^3/uL (0.0-1.1) 1.5 x10^3/uL (0.0-1.1) Eosinophils # (Auto) 0.1 x10^3/uL (0.0-0.7) 0.2 x10^3/uL (0.0-0.7) Basophils # (Auto) 0.0 x10^3/uL (0.0-0.2) 0.0 x10^3/uL (0.0-0.2) Sodium Level 136 mmol/L (136-145) 138 mmol/L (136-145) Potassium Level 3.4 mmol/L (3.5-5.1) 3.3 mmol/L (3.5-5.1) Chloride Level 99 mmol/L (98-107) 99 mmol/L (98-107) Carbon Dioxide Level 28 mmol/L (21-32) 28 mmol/L (21-32) Anion Gap 9 (6-14) 11 (6-14) Blood Urea Nitrogen 13 mg/dL (8-26) 11 mg/dL (8-26) Creatinine 1.3 mg/dL (0.7-1.3) 1.2 mg/dL (0.7-1.3) Estimated GFR (Cockcroft-Gault) 66.0 72.4 Glucose Level 113 mg/dL (70-99) 94 mg/dL (70-99) Calcium Level 8.5 mg/dL (8.5-10.1) 8.6 mg/dL (8.5-10.1) BUN/Creatinine Ratio 9 (6-20) Total Bilirubin 1.0 mg/dL (0.2-1.0) Aspartate Amino Transf (AST/SGOT) 29 U/L (15-37) Alanine Aminotransferase (ALT/SGPT) 32 U/L (16-63) Alkaline Phosphatase 77 U/L (46-116) Total Protein 7.5 g/dL (6.4-8.2) Albumin 2.7 g/dL (3.4-5.0) Albumin/Globulin Ratio 0.6 (1.0-1.7) O2 Saturation 95 % (92-99) Arterial Blood pH 7.47 (7.35-7.45) Arterial Blood pCO2 at Patient Temp 38 mmHg (35-46) Arterial Blood pO2 at Patient Temp 72 mmHg (65-108) Arterial Blood HCO3 27 mmol/L (21-28) Arterial Blood Base Excess 3 mmol/L (-3-3) FiO2 50 Influenza Type A Antigen Negative (NEGATIVE) Influenza Type B Antigen Negative (NEGATIVE) Test 08/28/19 04:00 Sodium Level 137 mmol/L (136-145) Potassium Level 3.4 mmol/L (3.5-5.1) Chloride Level 99 mmol/L (98-107) Carbon Dioxide Level 27 mmol/L (21-32) Anion Gap 11 (6-14) Blood Urea Nitrogen 10 mg/dL (8-26) Creatinine 1.1 mg/dL (0.7-1.3) Estimated GFR (Cockcroft-Gault) 80.1 Glucose Level 112 mg/dL (70-99) Calcium Level 8.9 mg/dL (8.5-10.1) Laboratory Tests Test 08/28/19 04:00 Sodium Level 137 mmol/L (136-145) Potassium Level 3.4 mmol/L (3.5-5.1) Chloride Level 99 mmol/L (98-107) Carbon Dioxide Level 27 mmol/L (21-32) Anion Gap 11 (6-14) Blood Urea Nitrogen 10 mg/dL (8-26) Creatinine 1.1 mg/dL (0.7-1.3) Estimated GFR (Cockcroft-Gault) 80.1 Glucose Level 112 mg/dL (70-99) Calcium Level 8.9 mg/dL (8.5-10.1) Microbiology 08/25/19 Blood Culture - Preliminary, Resulted NO GROWTH AFTER 2 DAYS Medications Current Medications Sodium Chloride 1,000 ml @ 1,000 mls/hr 1X ONCE IV Last administered on 08/25/19at 12:02; Start 08/25/19 at 12:00; Stop 08/25/19 at 12:59; Status DC Fentanyl Citrate (Fentanyl 2ml Vial) 50 mcg 1X ONCE IVP Last administered on 08/25/19at 12:12; Start 08/25/19 at 12:15; Stop 08/25/19 at 12:16; Status DC Ondansetron HCl (Zofran) 4 mg 1X ONCE IV Last administered on 08/25/19at 12:11; Start 08/25/19 at 12:15; Stop 08/25/19 at 12:16; Status DC Ceftriaxone Sodium (Rocephin) 1 gm 1X ONCE IVP Last administered on 08/25/19at 15:16; Start 08/25/19 at 14:15; Stop 08/25/19 at 14:16; Status DC Potassium Chloride (Klor-Con) 40 meq 1X ONCE PO Last administered on 08/25/19at 17:17; Start 08/25/19 at 15:00; Stop 08/25/19 at 15:01; Status DC Sodium Chloride 1,000 ml @ 125 mls/hr Q8H IV Last administered on 08/26/19at 05:16; Start 08/25/19 at 14:51; Stop 08/26/19 at 14:50; Status DC Acetaminophen (Tylenol) 650 mg PRN Q6HRS PRN PO mild pain/fever Last administered on 08/27/19at 16:55; Start 08/25/19 at 16:45 Allopurinol (Zyloprim) 300 mg DAILY PO Last administered on 08/28/19 08:41; Start 08/26/19 at 09:00 Amlodipine Besylate (Norvasc) 10 mg DAILY PO Last administered on 08/28/19at 08:41; Start 08/26/19 at 09:00 Hydrochlorothiazide (Hydrodiuril) 25 mg DAILY PO Last administered on 08/28/19 08:41; Start 08/26/19 at 09:00 Lisinopril (Prinivil) 40 mg DAILY PO Last administered on 08/28/19 08:42; Start 08/26/19 at 09:00 Metoprolol Succinate (Toprol Xl) 200 mg DAILY PO Last administered on 08/28/19 08:42; Start 08/26/19 at 09:00 Vancomycin HCl (Vanco Per Pharmacy) 1 each PRN DAILY PRN MC SEE COMMENTS Last administered on 08/25/19at 19:22; Start 08/25/19 at 17:45; Stop 08/27/19 at 13:43; Status DC Piperacillin Sod/ Tazobactam Sod (Zosyn Per Pharmacy) 1 each PRN DAILY PRN MC SEE COMMENTS; Start 08/25/19 at 17:45 Vancomycin HCl 2 gm/Sodium Chloride 500 ml @ 250 mls/hr 1X ONCE IV Last administered on 08/25/19at 18:35; Start 08/25/19 at 18:30; Stop 08/25/19 at 20:29; Status DC Piperacillin Sod/ Tazobactam Sod 3.375 gm/Sodium Chloride 50 ml @ 100 mls/hr Q6HRS IV Last administered on 08/28/19at 05:52; Start 08/25/19 at 18:00 Vancomycin HCl 1.5 gm/Sodium Chloride 500 ml @ 250 mls/hr Q24H IV Last administered on 08/26/19at 19:54; Start 08/26/19 at 18:00; Stop 08/27/19 at 13:43; Status DC Vancomycin HCl (Vancomycin Trough Level) 1 each 1X ONCE MC ; Start 08/27/19 at 17:30; Stop 08/27/19 at 13:44; Status DC Guaifenesin (Robitussin Dm) 10 ml PRN Q4HRS PRN PO COUGH Last administered on 08/27/19at 08:59; Start 08/26/19 at 11:45 Lactobacillus Rhamnosus (Culturelle) 1 cap BID PO Last administered on 08/28/19at 08:41; Start 08/26/19 at 21:00 Ondansetron HCl (Zofran) 4 mg PRN Q4HRS PRN IVP NAUSEA/VOMITING Last administered on 08/27/19at 12:25; Start 08/27/19 at 12:30 Linezolid (Zyvox) 600 mg BID PO ; Start 08/27/19 at 21:00; Stop 08/27/19 at 13:56; Status DC Linezolid/Dextrose 300 ml @ 300 mls/hr Q12HR IV Last administered on 08/28/19at 08:42; Start 08/27/19 at 21:00 Linezolid/Dextrose 300 ml @ 300 mls/hr 1X ONCE IV Last administered on 08/27/19at 16:54; Start 08/27/19 at 14:30; Stop 08/27/19 at 15:29; Status DC Potassium Chloride (Klor-Con) 40 meq 1X ONCE PO Last administered on 08/27/19at 16:55; Start 08/27/19 at 15:00; Stop 08/27/19 at 15:04; Status DC Active Scripts Active Reported Metoprolol Succinate ( Xl ) (Metoprolol Succinate) 200 Mg Tab.er.24h 1 Tab PO DAILY Hydrochlorothiazide Tablet (Hydrochlorothiazide) 25 Mg Tablet 25 Mg PO DAILY Allopurinol 300 Mg Tablet 1 Tab PO DAILY Lisinopril 40 Mg Tablet 1 Tab PO DAILY Amlodipine Besylate 10 Mg Tablet 10 Mg PO DAILY Vitals/I & O Vital Sign - Last 24 Hours 08/27/19 08/27/19 08/27/19 08/27/19 11:52 15:00 19:49 20:00 Temp 99.3 98.4 98.3 99.3 98.4 98.3 Pulse 87 72 73 Resp 20 16 20 B/P (MAP) 158/98 (118) 139/76 (97) 132/72 (92) Pulse Ox 94 87 91 O2 Delivery Nasal Cannula Nasal Cannula Nasal Cannula Nasal Cannula O2 Flow Rate 3.0 3.0 3.0 3.0 08/27/19 08/28/19 08/28/19 08/28/19 23:41 03:23 07:50 08:41 Temp 97.8 98.4 99.0 97.8 98.4 99.0 Pulse 73 81 70 70 Resp 16 18 20 B/P (MAP) 137/78 (97) 145/80 (101) 119/83 (95) 119/83 Pulse Ox 93 94 92 O2 Delivery BiPAP/CPAP Room Air Room Air 08/28/19 08/28/19 08:42 08:42 Pulse 70 70 B/P (MAP) 119/83 119/83 Intake and Output 08/27/19 08/27/19 08/28/19 15:00 23:00 07:00 Intake Total 400 ml 300 ml 400 ml Output Total 500 ml Balance 400 ml 300 ml -100 ml ALIVIA MALDONADO MD Aug 28, 2019 09:15
--- NOTE | 2019-08-28 10:44 | PDOC ---
PULMONARY PROGRESS NOTES Subjective no soa, less cough Vitals Vital Signs Date Time Temp Pulse Resp B/P (MAP) Pulse Ox O2 Delivery O2 Flow Rate FiO2 08/28/19 08:42 70 119/83 08/28/19 07:50 99.0 20 92 Room Air 99.0 08/27/19 20:00 3.0 General: Alert, Oriented X4 HEENT: Other Lungs: Clear Cardiovascular: S1, S2 Abdomen: Soft, Non-tender Neuro Exam: Alert Extremities: No Edema Skin: Warm Labs Laboratory Tests Test 08/26/19 16:15 08/27/19 02:56 08/27/19 03:17 08/27/19 03:30 White Blood Count 7.8 x10^3/uL (4.0-11.0) 8.4 x10^3/uL (4.0-11.0) Red Blood Count 5.09 x10^6/uL (4.30-5.70) 5.31 x10^6/uL (4.30-5.70) Hemoglobin 13.8 g/dL (13.0-17.5) 14.2 g/dL (13.0-17.5) Hematocrit 41.7 % (39.0-53.0) 43.3 % (39.0-53.0) Mean Corpuscular Volume 82 fL (79-100) 82 fL (79-100) Mean Corpuscular Hemoglobin 27 pg (25-35) 27 pg (25-35) Mean Corpuscular Hemoglobin Concent 33 g/dL (31-37) 33 g/dL (31-37) Red Cell Distribution Width 14.6 % (11.5-14.5) 14.7 % (11.5-14.5) Platelet Count 193 x10^3/uL (140-400) 225 x10^3/uL (140-400) Neutrophils (%) (Auto) 68 % (31-73) 58 % (31-73) Lymphocytes (%) (Auto) 17 % (24-48) 22 % (24-48) Monocytes (%) (Auto) 13 % (0-9) 18 % (0-9) Eosinophils (%) (Auto) 2 % (0-3) 2 % (0-3) Basophils (%) (Auto) 0 % (0-3) 0 % (0-3) Neutrophils # (Auto) 5.3 x10^3/uL (1.8-7.7) 4.9 x10^3/uL (1.8-7.7) Lymphocytes # (Auto) 1.4 x10^3/uL (1.0-4.8) 1.9 x10^3/uL (1.0-4.8) Monocytes # (Auto) 1.0 x10^3/uL (0.0-1.1) 1.5 x10^3/uL (0.0-1.1) Eosinophils # (Auto) 0.1 x10^3/uL (0.0-0.7) 0.2 x10^3/uL (0.0-0.7) Basophils # (Auto) 0.0 x10^3/uL (0.0-0.2) 0.0 x10^3/uL (0.0-0.2) Sodium Level 136 mmol/L (136-145) 138 mmol/L (136-145) Potassium Level 3.4 mmol/L (3.5-5.1) 3.3 mmol/L (3.5-5.1) Chloride Level 99 mmol/L (98-107) 99 mmol/L (98-107) Carbon Dioxide Level 28 mmol/L (21-32) 28 mmol/L (21-32) Anion Gap 9 (6-14) 11 (6-14) Blood Urea Nitrogen 13 mg/dL (8-26) 11 mg/dL (8-26) Creatinine 1.3 mg/dL (0.7-1.3) 1.2 mg/dL (0.7-1.3) Estimated GFR (Cockcroft-Gault) 66.0 72.4 Glucose Level 113 mg/dL (70-99) 94 mg/dL (70-99) Calcium Level 8.5 mg/dL (8.5-10.1) 8.6 mg/dL (8.5-10.1) BUN/Creatinine Ratio 9 (6-20) Total Bilirubin 1.0 mg/dL (0.2-1.0) Aspartate Amino Transf (AST/SGOT) 29 U/L (15-37) Alanine Aminotransferase (ALT/SGPT) 32 U/L (16-63) Alkaline Phosphatase 77 U/L (46-116) Total Protein 7.5 g/dL (6.4-8.2) Albumin 2.7 g/dL (3.4-5.0) Albumin/Globulin Ratio 0.6 (1.0-1.7) O2 Saturation 95 % (92-99) Arterial Blood pH 7.47 (7.35-7.45) Arterial Blood pCO2 at Patient Temp 38 mmHg (35-46) Arterial Blood pO2 at Patient Temp 72 mmHg (65-108) Arterial Blood HCO3 27 mmol/L (21-28) Arterial Blood Base Excess 3 mmol/L (-3-3) FiO2 50 Influenza Type A Antigen Negative (NEGATIVE) Influenza Type B Antigen Negative (NEGATIVE) Test 08/28/19 04:00 Sodium Level 137 mmol/L (136-145) Potassium Level 3.4 mmol/L (3.5-5.1) Chloride Level 99 mmol/L (98-107) Carbon Dioxide Level 27 mmol/L (21-32) Anion Gap 11 (6-14) Blood Urea Nitrogen 10 mg/dL (8-26) Creatinine 1.1 mg/dL (0.7-1.3) Estimated GFR (Cockcroft-Gault) 80.1 Glucose Level 112 mg/dL (70-99) Calcium Level 8.9 mg/dL (8.5-10.1) Laboratory Tests Test 08/28/19 04:00 Sodium Level 137 mmol/L (136-145) Potassium Level 3.4 mmol/L (3.5-5.1) Chloride Level 99 mmol/L (98-107) Carbon Dioxide Level 27 mmol/L (21-32) Anion Gap 11 (6-14) Blood Urea Nitrogen 10 mg/dL (8-26) Creatinine 1.1 mg/dL (0.7-1.3) Estimated GFR (Cockcroft-Gault) 80.1 Glucose Level 112 mg/dL (70-99) Calcium Level 8.9 mg/dL (8.5-10.1) Medications Active Scripts Medications Dose Route/Sig Max Daily Dose Days Date Category Metoprolol Succinate ( Xl ) (Metoprolol Succinate) 200 Mg Tab.er.24h 1 Tab PO DAILY 11/11/18 Reported Hydrochlorothiazide Tablet (Hydrochlorothiazide) 25 Mg Tablet 25 Mg PO DAILY 11/11/18 Reported Allopurinol 300 Mg Tablet 1 Tab PO DAILY 11/11/18 Reported Lisinopril 40 Mg Tablet 1 Tab PO DAILY 11/11/18 Reported Amlodipine Besylate 10 Mg Tablet 10 Mg PO DAILY 11/11/18 Reported Impression . 1. Acute hypoxic respiratory failure in a patient who comes in with fever, and dyspnea for the last 2 years. He also has a chronic cough. He has worked around [employer] for [address] chest c/w right lung pneumonia/ RUL, RLL 2. No significant tobacco history. Plan . 1. We will continue present broad-spectrum antibiotic. (ZYVOX, ZOSYN) 2. Continue oxygen. 3. Noncontrast CT chest reviewed and c/w pneumonia 4. Follow Neurology recommendations. 5. Discussed with and RN. CHARLES JACK MD Aug 28, 2019 10:44
[2019-08-28 11:27] VITALS: BP 140/79
--- NOTE | 2019-08-28 11:54 | PDOC ---
PROGRESS NOTES Assessment Problems Medical Problems: (1) Diarrhea Status: Acute (2) Elevated bilirubin Status: Acute (3) Elevated lactic acid level Status: Acute (4) Hypokalemia Status: Acute (5) Leukocytosis Status: Acute (6) Seizure Status: Acute Provoked seizure due to sepsis versus convulsive syncope. EEG 08/27 normal Sepsis syndrome with urinary tract infection and pneumonia Fever Leukocytosis Lactic acidosis Diarrhea Hypertension Plan I discussed with patient, with the normal EEG and the provocations for Caesar, I am holding on starting anticonvulsants. I discussed risk versus benefits of this decision. No driving for 6 months without a seizure Can discharge the neurological point of view. Subjective No complaints, does not feel quite up to going home yet Objective Vital Signs Date Time Temp Pulse Resp B/P (MAP) Pulse Ox O2 Delivery O2 Flow Rate FiO2 08/28/19 11:27 97.9 73 20 140/79 (99) 91 Room Air 97.9 08/27/19 20:00 3.0 Intake and Output 08/28/19 07:00 Intake Total 1100 ml Output Total 500 ml Balance 600 ml Intake Oral 1100 ml Output Urine Total 500 ml # Voids 4 # Bowel Movements 1 PHYSICAL EXAM Alert. Oriented to time, place and person. PERRL. EOMI. CN: no focal findings. Muscle tone: normal. Muscle strength: 5/5 DTR: 2+ Plantar reflex: flexor Gait: normal. Sensory exam: no abnormal findings. No cerebellar signs elicited. Review of Relevant I have reviewed the following items silvestre (where applicable) has been applied. Labs Laboratory Tests Test 08/26/19 16:15 08/27/19 02:56 08/27/19 03:17 08/27/19 03:30 White Blood Count 7.8 x10^3/uL (4.0-11.0) 8.4 x10^3/uL (4.0-11.0) Red Blood Count 5.09 x10^6/uL (4.30-5.70) 5.31 x10^6/uL (4.30-5.70) Hemoglobin 13.8 g/dL (13.0-17.5) 14.2 g/dL (13.0-17.5) Hematocrit 41.7 % (39.0-53.0) 43.3 % (39.0-53.0) Mean Corpuscular Volume 82 fL (79-100) 82 fL (79-100) Mean Corpuscular Hemoglobin 27 pg (25-35) 27 pg (25-35) Mean Corpuscular Hemoglobin Concent 33 g/dL (31-37) 33 g/dL (31-37) Red Cell Distribution Width 14.6 % (11.5-14.5) 14.7 % (11.5-14.5) Platelet Count 193 x10^3/uL (140-400) 225 x10^3/uL (140-400) Neutrophils (%) (Auto) 68 % (31-73) 58 % (31-73) Lymphocytes (%) (Auto) 17 % (24-48) 22 % (24-48) Monocytes (%) (Auto) 13 % (0-9) 18 % (0-9) Eosinophils (%) (Auto) 2 % (0-3) 2 % (0-3) Basophils (%) (Auto) 0 % (0-3) 0 % (0-3) Neutrophils # (Auto) 5.3 x10^3/uL (1.8-7.7) 4.9 x10^3/uL (1.8-7.7) Lymphocytes # (Auto) 1.4 x10^3/uL (1.0-4.8) 1.9 x10^3/uL (1.0-4.8) Monocytes # (Auto) 1.0 x10^3/uL (0.0-1.1) 1.5 x10^3/uL (0.0-1.1) Eosinophils # (Auto) 0.1 x10^3/uL (0.0-0.7) 0.2 x10^3/uL (0.0-0.7) Basophils # (Auto) 0.0 x10^3/uL (0.0-0.2) 0.0 x10^3/uL (0.0-0.2) Sodium Level 136 mmol/L (136-145) 138 mmol/L (136-145) Potassium Level 3.4 mmol/L (3.5-5.1) 3.3 mmol/L (3.5-5.1) Chloride Level 99 mmol/L (98-107) 99 mmol/L (98-107) Carbon Dioxide Level 28 mmol/L (21-32) 28 mmol/L (21-32) Anion Gap 9 (6-14) 11 (6-14) Blood Urea Nitrogen 13 mg/dL (8-26) 11 mg/dL (8-26) Creatinine 1.3 mg/dL (0.7-1.3) 1.2 mg/dL (0.7-1.3) Estimated GFR (Cockcroft-Gault) 66.0 72.4 Glucose Level 113 mg/dL (70-99) 94 mg/dL (70-99) Calcium Level 8.5 mg/dL (8.5-10.1) 8.6 mg/dL (8.5-10.1) BUN/Creatinine Ratio 9 (6-20) Total Bilirubin 1.0 mg/dL (0.2-1.0) Aspartate Amino Transf (AST/SGOT) 29 U/L (15-37) Alanine Aminotransferase (ALT/SGPT) 32 U/L (16-63) Alkaline Phosphatase 77 U/L (46-116) Total Protein 7.5 g/dL (6.4-8.2) Albumin 2.7 g/dL (3.4-5.0) Albumin/Globulin Ratio 0.6 (1.0-1.7) O2 Saturation 95 % (92-99) Arterial Blood pH 7.47 (7.35-7.45) Arterial Blood pCO2 at Patient Temp 38 mmHg (35-46) Arterial Blood pO2 at Patient Temp 72 mmHg (65-108) Arterial Blood HCO3 27 mmol/L (21-28) Arterial Blood Base Excess 3 mmol/L (-3-3) FiO2 50 Influenza Type A Antigen Negative (NEGATIVE) Influenza Type B Antigen Negative (NEGATIVE) Test 08/28/19 04:00 Sodium Level 137 mmol/L (136-145) Potassium Level 3.4 mmol/L (3.5-5.1) Chloride Level 99 mmol/L (98-107) Carbon Dioxide Level 27 mmol/L (21-32) Anion Gap 11 (6-14) Blood Urea Nitrogen 10 mg/dL (8-26) Creatinine 1.1 mg/dL (0.7-1.3) Estimated GFR (Cockcroft-Gault) 80.1 Glucose Level 112 mg/dL (70-99) Calcium Level 8.9 mg/dL (8.5-10.1) Laboratory Tests Test 08/28/19 04:00 Sodium Level 137 mmol/L (136-145) Potassium Level 3.4 mmol/L (3.5-5.1) Chloride Level 99 mmol/L (98-107) Carbon Dioxide Level 27 mmol/L (21-32) Anion Gap 11 (6-14) Blood Urea Nitrogen 10 mg/dL (8-26) Creatinine 1.1 mg/dL (0.7-1.3) Estimated GFR (Cockcroft-Gault) 80.1 Glucose Level 112 mg/dL (70-99) Calcium Level 8.9 mg/dL (8.5-10.1) Microbiology 08/25/19 Blood Culture - Preliminary, Resulted NO GROWTH AFTER 2 DAYS Medications Current Medications Sodium Chloride 1,000 ml @ 1,000 mls/hr 1X ONCE IV Last administered on 08/25/19at 12:02; Start 08/25/19 at 12:00; Stop 08/25/19 at 12:59; Status DC Fentanyl Citrate (Fentanyl 2ml Vial) 50 mcg 1X ONCE IVP Last administered on 08/25/19at 12:12; Start 08/25/19 at 12:15; Stop 08/25/19 at 12:16; Status DC Ondansetron HCl (Zofran) 4 mg 1X ONCE IV Last administered on 08/25/19at 12:11; Start 08/25/19 at 12:15; Stop 08/25/19 at 12:16; Status DC Ceftriaxone Sodium (Rocephin) 1 gm 1X ONCE IVP Last administered on 08/25/19at 15:16; Start 08/25/19 at 14:15; Stop 08/25/19 at 14:16; Status DC Potassium Chloride (Klor-Con) 40 meq 1X ONCE PO Last administered on 08/25/19at 17:17; Start 08/25/19 at 15:00; Stop 08/25/19 at 15:01; Status DC Sodium Chloride 1,000 ml @ 125 mls/hr Q8H IV Last administered on 08/26/19at 05:16; Start 08/25/19 at 14:51; Stop 08/26/19 at 14:50; Status DC Acetaminophen (Tylenol) 650 mg PRN Q6HRS PRN PO mild pain/fever Last administered on 08/27/19at 16:55; Start 08/25/19 at 16:45 Allopurinol (Zyloprim) 300 mg DAILY PO Last administered on 08/28/19 08:41; Start 08/26/19 at 09:00 Amlodipine Besylate (Norvasc) 10 mg DAILY PO Last administered on 08/28/19 08:41; Start 08/26/19 at 09:00 Hydrochlorothiazide (Hydrodiuril) 25 mg DAILY PO Last administered on 08/28/19 08:41; Start 08/26/19 at 09:00 Lisinopril (Prinivil) 40 mg DAILY PO Last administered on 08/28/19 08:42; Start 08/26/19 at 09:00 Metoprolol Succinate (Toprol Xl) 200 mg DAILY PO Last administered on 08/28/19 08:42; Start 08/26/19 at 09:00 Vancomycin HCl (Vanco Per Pharmacy) 1 each PRN DAILY PRN MC SEE COMMENTS Last administered on 08/25/19at 19:22; Start 08/25/19 at 17:45; Stop 08/27/19 at 13:43; Status DC Piperacillin Sod/ Tazobactam Sod (Zosyn Per Pharmacy) 1 each PRN DAILY PRN MC SEE COMMENTS; Start 08/25/19 at 17:45 Vancomycin HCl 2 gm/Sodium Chloride 500 ml @ 250 mls/hr 1X ONCE IV Last administered on 08/25/19at 18:35; Start 08/25/19 at 18:30; Stop 08/25/19 at 20:29; Status DC Piperacillin Sod/ Tazobactam Sod 3.375 gm/Sodium Chloride 50 ml @ 100 mls/hr Q6HRS IV Last administered on 08/28/19at 05:52; Start 08/25/19 at 18:00 Vancomycin HCl 1.5 gm/Sodium Chloride 500 ml @ 250 mls/hr Q24H IV Last administered on 08/26/19at 19:54; Start 08/26/19 at 18:00; Stop 08/27/19 at 13:43; Status DC Vancomycin HCl (Vancomycin Trough Level) 1 each 1X ONCE MC ; Start 08/27/19 at 17:30; Stop 08/27/19 at 13:44; Status DC Guaifenesin (Robitussin Dm) 10 ml PRN Q4HRS PRN PO COUGH Last administered on 08/27/19 08:59; Start 08/26/19 at 11:45 Lactobacillus Rhamnosus (Culturelle) 1 cap BID PO Last administered on 08/28/19 08:41; Start 08/26/19 at 21:00 Ondansetron HCl (Zofran) 4 mg PRN Q4HRS PRN IVP NAUSEA/VOMITING Last administered on 08/27/19at 12:25; Start 08/27/19 at 12:30 Linezolid (Zyvox) 600 mg BID PO ; Start 08/27/19 at 21:00; Stop 08/27/19 at 13:56; Status DC Linezolid/Dextrose 300 ml @ 300 mls/hr Q12HR IV Last administered on 08/28/19 08:42; Start 08/27/19 at 21:00 Linezolid/Dextrose 300 ml @ 300 mls/hr 1X ONCE IV Last administered on 08/27/19at 16:54; Start 08/27/19 at 14:30; Stop 08/27/19 at 15:29; Status DC Potassium Chloride (Klor-Con) 40 meq 1X ONCE PO Last administered on 08/27/19 16:55; Start 08/27/19 at 15:00; Stop 08/27/19 at 15:04; Status DC Active Scripts Active Reported Metoprolol Succinate ( Xl ) (Metoprolol Succinate) 200 Mg Tab.er.24h 1 Tab PO DAILY Hydrochlorothiazide Tablet (Hydrochlorothiazide) 25 Mg Tablet 25 Mg PO DAILY Allopurinol 300 Mg Tablet 1 Tab PO DAILY Lisinopril 40 Mg Tablet 1 Tab PO DAILY Amlodipine Besylate 10 Mg Tablet 10 Mg PO DAILY Vitals/I & O Vital Sign - Last 24 Hours 08/27/19 08/27/19 08/27/19 08/27/19 15:00 19:49 20:00 23:41 Temp 98.4 98.3 97.8 98.4 98.3 97.8 Pulse 72 73 73 Resp 16 20 16 B/P (MAP) 139/76 (97) 132/72 (92) 137/78 (97) Pulse Ox 87 91 93 O2 Delivery Nasal Cannula Nasal Cannula Nasal Cannula BiPAP/CPAP O2 Flow Rate 3.0 3.0 3.0 08/28/19 08/28/19 08/28/19 08/28/19 03:23 07:50 08:41 08:42 Temp 98.4 99.0 98.4 99.0 Pulse 81 70 70 70 Resp 18 20 B/P (MAP) 145/80 (101) 119/83 (95) 119/83 119/83 Pulse Ox 94 92 O2 Delivery Room Air Room Air 08/28/19 08/28/19 08:42 11:27 Temp 97.9 97.9 Pulse 70 73 Resp 20 B/P (MAP) 119/83 140/79 (99) Pulse Ox 91 O2 Delivery Room Air Intake and Output 08/27/19 08/27/19 08/28/19 15:00 23:00 07:00 Intake Total 400 ml 300 ml 400 ml Output Total 500 ml Balance 400 ml 300 ml -100 ml GABRIELLA SMILEY MD Aug 28, 2019 11:54
[2019-08-28] MEDS: guaiFENesin DM 200MG/20MG 10 ML SYRUP PO PRN ×2 (12:48→17:34)
[2019-08-28 15:48] VITALS: BP 133/64
[2019-08-28] MEDS: ACETAMINOPHEN 325 MG TABLET. PO PRN (17:34)
[2019-08-28 19:35] VITALS: BP 150/67
[2019-08-28 23:35] VITALS: BP 143/68
[2019-08-29 03:00] VITALS: BP 137/68
[2019-08-29] MEDS: PIPERACILLIN/TAZOBACTAM 3.375 GM in IV NORMAL SALINE 50ML 50 ML IV SCH ×4 (06:38→13:01)
[2019-08-29 07:00] VITALS: BP 146/63
--- NOTE | 2019-08-29 07:25 | PDOC ---
PROGRESS NOTES History of Present Illness History of Present Illness DISCHARGE DX Seizure, coagulopathy, leukocytosis, lactic acidosis, hypokalemia, hyponatremia, acute renal failure, malnutrition. HYPOXIC EPISODE 08/27 ct chest mild airspace infiltrates on the right most likely indicate mild pneumonia. Correlate for evidence of infection. No evidence of interstitial lung disease. UTI SEPSIS SEVERE PROTEIN-CALORIC MALNUTRITION admitted. consult Neurology. empiric IV antibiotics D/C Zosyn and CONT vancomycin, consult Nephrology. Frequent labs, PT, OT, DVT prophylaxis. Full code. AVOID ANTICONVULSANTS at this time CT CHEST 08/27 RLL INFILTRATE 08/26 CONTINUE iv vanc and D/C Zosyn f/u cultures C. diff pending 08/28 CONTINUED FEVER IV ZYVOX STARTED T MAX 102 f REPLACED K 08/29 ok to dc home on empiric augmentin and doxycycline for 7 days IF 6 MIN WALK OK 34 MIN PT EXAM, CHART REVIEW D/C PLANNING , > 50% OF TIME SPENT WITH EXAM, CHART REVIEW, PT CARE COORDINATION Vitals Vitals Vital Signs Date Time Temp Pulse Resp B/P (MAP) Pulse Ox O2 Delivery O2 Flow Rate FiO2 08/29/19 03:00 98.2 61 18 137/68 (91) 94 BiPAP/CPAP 98.2 08/28/19 20:00 3.0 Physical Exam Physical Exam GENERAL: Propped up in bed, alert in NAD HEENT: Pupils equally round. Oropharynx is pink and moist. NECK: Supple. LUNGS: Clear. HEART: S1, S2. ABDOMEN: Obese, soft, nontender with bowel sounds present. EXTREMITIES: No gross edema or cyanosis. SKIN: Warm to touch without signs of rash. NEUROLOGIC: Alert, answering questions appropriately. General: Alert, Oriented X3, Cooperative Heart: Regular rate Lungs: Clear, Crackles Abdomen: Normal bowel sounds, Soft, No tenderness Extremities: No cyanosis Labs LABS EXAM: CT OF THE CHEST WITHOUT CONTRAST. HISTORY: Interstitial lung disease. TECHNIQUE: Computed tomography of the chest was performed without intravenous contrast. COMPARISON: 08/25/2019, 08/27/2019. FINDINGS: Images of the upper abdomen reveal at least moderate diffuse hepatic steatosis. A hypoattenuating lesion at the right renal upper pole is incompletely characterized but most likely represents a 1.5 cm cyst. Bone windows reveal no suspicious lesions. Calcified mediastinal lymph nodes are likely secondary to old granulomatous disease. A prominent prevascular node measures 1.5 x 0.8 cm. A right paratracheal node measures 1.5 x 0.8 cm. None are clearly pathologically enlarged. There is no pleural or pericardial effusion. The heart is not enlarged. There are calcifications of the aortic valve and coronary arteries. A mild airspace infiltrate has developed in the right upper and right lower lobes since the prior study. This is most consistent with mild pneumonia. There is atelectasis in the costophrenic angles. There is no clear septal line thickening, cystic change or bronchiectasis. Scattered calcified granulomas are noted. IMPRESSION: 1. Mild airspace infiltrates on the right most likely indicate mild pneumonia. Correlate for evidence of infection. No evidence of interstitial lung disease. 2. Mildly prominent mediastinal lymph nodes are likely reactive in this setting. 3. Aortic valve calcifications. Correlate for aortic stenosis. 4. Diffuse hepatic steatosis. *One or more of the following individualized dose reduction techniques were utilized for this examination: 1. Automated exposure control. 2. Adjustment of the mA and/or kV according to patient size. 3. Use of iterative reconstruction technique. Electronically signed by: Laura Love MD (08/29/2019 12:17 PM) [facility] DICTATED and SIGNED BY: RICHARD LOVE MD DATE: 08/29/19 121 Assessment and Plan Assessmemt and Plan Problems Medical Problems: (1) Diarrhea Status: Acute (2) Elevated bilirubin Status: Acute (3) Elevated lactic acid level Status: Acute (4) Hypokalemia Status: Acute (5) Leukocytosis Status: Acute (6) Seizure Status: Acute Comment Review of Relevant I have reviewed the following items silvestre (where applicable) has been applied. Labs Laboratory Tests Test 08/28/19 04:00 Sodium Level 137 mmol/L (136-145) Potassium Level 3.4 mmol/L (3.5-5.1) Chloride Level 99 mmol/L (98-107) Carbon Dioxide Level 27 mmol/L (21-32) Anion Gap 11 (6-14) Blood Urea Nitrogen 10 mg/dL (8-26) Creatinine 1.1 mg/dL (0.7-1.3) Estimated GFR (Cockcroft-Gault) 80.1 Glucose Level 112 mg/dL (70-99) Calcium Level 8.9 mg/dL (8.5-10.1) Microbiology 08/26/19 Urine Culture - Final, Complete 08/26/19 Urine Culture Result 1 (RENETTA) - Final, Complete 08/25/19 Blood Culture - Preliminary, Resulted NO GROWTH AFTER 3 DAYS Medications Current Medications Sodium Chloride 1,000 ml @ 1,000 mls/hr 1X ONCE IV Last administered on 08/25/19at 12:02; Start 08/25/19 at 12:00; Stop 08/25/19 at 12:59; Status DC Fentanyl Citrate (Fentanyl 2ml Vial) 50 mcg 1X ONCE IVP Last administered on 08/25/19at 12:12; Start 08/25/19 at 12:15; Stop 08/25/19 at 12:16; Status DC Ondansetron HCl (Zofran) 4 mg 1X ONCE IV Last administered on 08/25/19at 12:11; Start 08/25/19 at 12:15; Stop 08/25/19 at 12:16; Status DC Ceftriaxone Sodium (Rocephin) 1 gm 1X ONCE IVP Last administered on 08/25/19at 15:16; Start 08/25/19 at 14:15; Stop 08/25/19 at 14:16; Status DC Potassium Chloride (Klor-Con) 40 meq 1X ONCE PO Last administered on 08/25/19at 17:17; Start 08/25/19 at 15:00; Stop 08/25/19 at 15:01; Status DC Sodium Chloride 1,000 ml @ 125 mls/hr Q8H IV Last administered on 08/26/19at 05:16; Start 08/25/19 at 14:51; Stop 08/26/19 at 14:50; Status DC Acetaminophen (Tylenol) 650 mg PRN Q6HRS PRN PO mild pain/fever Last administered on 08/28/19at 17:34; Start 08/25/19 at 16:45 Allopurinol (Zyloprim) 300 mg DAILY PO Last administered on 08/28/19at 08:41; Start 08/26/19 at 09:00 Amlodipine Besylate (Norvasc) 10 mg DAILY PO Last administered on 08/28/19at 08:41; Start 08/26/19 at 09:00 Hydrochlorothiazide (Hydrodiuril) 25 mg DAILY PO Last administered on 08/28/19 08:41; Start 08/26/19 at 09:00 Lisinopril (Prinivil) 40 mg DAILY PO Last administered on 08/28/19 08:42; Start 08/26/19 at 09:00 Metoprolol Succinate (Toprol Xl) 200 mg DAILY PO Last administered on 08/28/19 08:42; Start 08/26/19 at 09:00 Vancomycin HCl (Vanco Per Pharmacy) 1 each PRN DAILY PRN MC SEE COMMENTS Last administered on 08/25/19 19:22; Start 08/25/19 at 17:45; Stop 08/27/19 at 13:43; Status DC Piperacillin Sod/ Tazobactam Sod (Zosyn Per Pharmacy) 1 each PRN DAILY PRN MC SEE COMMENTS; Start 08/25/19 at 17:45 Vancomycin HCl 2 gm/Sodium Chloride 500 ml @ 250 mls/hr 1X ONCE IV Last administered on 08/25/19at 18:35; Start 08/25/19 at 18:30; Stop 08/25/19 at 20:29; Status DC Piperacillin Sod/ Tazobactam Sod 3.375 gm/Sodium Chloride 50 ml @ 100 mls/hr Q6HRS IV Last administered on 08/29/19at 06:38; Start 08/25/19 at 18:00 Vancomycin HCl 1.5 gm/Sodium Chloride 500 ml @ 250 mls/hr Q24H IV Last administered on 08/26/19at 19:54; Start 08/26/19 at 18:00; Stop 08/27/19 at 13:43; Status DC Vancomycin HCl (Vancomycin Trough Level) 1 each 1X ONCE MC ; Start 08/27/19 at 17:30; Stop 08/27/19 at 13:44; Status DC Guaifenesin (Robitussin Dm) 10 ml PRN Q4HRS PRN PO COUGH Last administered on 08/28/19at 17:34; Start 08/26/19 at 11:45 Lactobacillus Rhamnosus (Culturelle) 1 cap BID PO Last administered on 08/28at 21:37; Start 08/26/19 at 21:00 Ondansetron HCl (Zofran) 4 mg PRN Q4HRS PRN IVP NAUSEA/VOMITING Last administered on 08/27/19at 12:25; Start 08/27/19 at 12:30 Linezolid (Zyvox) 600 mg BID PO ; Start 08/27/19 at 21:00; Stop 08/27/19 at 13:56; Status DC Linezolid/Dextrose 300 ml @ 300 mls/hr Q12HR IV Last administered on 08/28/19at 21:37; Start 08/27/19 at 21:00 Linezolid/Dextrose 300 ml @ 300 mls/hr 1X ONCE IV Last administered on 08/27/19at 16:54; Start 08/27/19 at 14:30; Stop 08/27/19 at 15:29; Status DC Potassium Chloride (Klor-Con) 40 meq 1X ONCE PO Last administered on 08/27/19at 16:55; Start 08/27/19 at 15:00; Stop 08/27/19 at 15:04; Status DC Active Scripts Active Reported Metoprolol Succinate ( Xl ) (Metoprolol Succinate) 200 Mg Tab.er.24h 1 Tab PO DAILY Hydrochlorothiazide Tablet (Hydrochlorothiazide) 25 Mg Tablet 25 Mg PO DAILY Allopurinol 300 Mg Tablet 1 Tab PO DAILY Lisinopril 40 Mg Tablet 1 Tab PO DAILY Amlodipine Besylate 10 Mg Tablet 10 Mg PO DAILY Vitals/I & O Vital Sign - Last 24 Hours 08/28/19 08/28/19 08/28/19 08/28/19 07:50 08:41 08:42 08:42 Temp 99.0 99.0 Pulse 70 70 70 70 Resp 20 B/P (MAP) 119/83 (95) 119/83 119/83 119/83 Pulse Ox 92 O2 Delivery Room Air 08/28/19 08/28/19 08/28/19 08/28/19 11:27 15:48 19:35 20:00 Temp 97.9 98.0 98.3 97.9 98.0 98.3 Pulse 73 66 67 Resp 20 20 18 B/P (MAP) 140/79 (99) 133/64 (87) 150/67 (94) Pulse Ox 91 94 94 O2 Delivery Room Air Room Air Nasal Cannula Nasal Cannula O2 Flow Rate 3.0 3.0 08/28/19 08/29/19 23:35 03:00 Temp 98.3 98.2 98.3 98.2 Pulse 68 61 Resp 18 18 B/P (MAP) 143/68 (93) 137/68 (91) Pulse Ox 94 94 O2 Delivery Room Air BiPAP/CPAP Intake and Output 08/28/19 08/28/19 08/29/19 14:59 22:59 06:59 Intake Total 400 ml 400 ml 500 ml Balance 400 ml 400 ml 500 ml ALIVIA MALDONADO MD Aug 29, 2019 07:25
[2019-08-29] MEDS: METOPROLOL SUCC 24HR ER 100 MG TAB.ER.24H. PO SCH (09:22)
[2019-08-29] MEDS: ALLOPURINOL 300 MG TABLET. PO SCH (09:22)
[2019-08-29] MEDS: amLODIPine BESYLATE 10 MG TABLET PO SCH (09:23)
[2019-08-29] MEDS: LACTOBACILLUS RHAMNOSUS GG 1 CAPSULE. PO SCH (09:23)
[2019-08-29] MEDS: hydroCHLOROthiazide 25 MG TABLET PO SCH (09:23)
[2019-08-29] MEDS: LISINOPRIL 20 MG TABLET PO SCH (09:23)
[2019-08-29] MEDS: guaiFENesin DM 200MG/20MG 10 ML SYRUP PO PRN (09:32)
--- NOTE | 2019-08-29 10:42 | PDOC ---
PULMONARY PROGRESS NOTES Subjective no soa, less cough Vitals Vital Signs Date Time Temp Pulse Resp B/P (MAP) Pulse Ox O2 Delivery O2 Flow Rate FiO2 08/29/19 09:23 68 146/63 08/29/19 03:00 98.2 18 94 BiPAP/CPAP 98.2 08/28/19 20:00 3.0 General: Alert, Oriented X4 HEENT: Other Lungs: Crackles Cardiovascular: S1, S2 Abdomen: Soft, Non-tender Neuro Exam: Alert Extremities: No Edema Skin: Warm Labs Laboratory Tests Test 08/28/19 04:00 Sodium Level 137 mmol/L (136-145) Potassium Level 3.4 mmol/L (3.5-5.1) Chloride Level 99 mmol/L (98-107) Carbon Dioxide Level 27 mmol/L (21-32) Anion Gap 11 (6-14) Blood Urea Nitrogen 10 mg/dL (8-26) Creatinine 1.1 mg/dL (0.7-1.3) Estimated GFR (Cockcroft-Gault) 80.1 Glucose Level 112 mg/dL (70-99) Calcium Level 8.9 mg/dL (8.5-10.1) Medications Active Scripts Medications Dose Route/Sig Max Daily Dose Days Date Category Metoprolol Succinate ( Xl ) (Metoprolol Succinate) 200 Mg Tab.er.24h 1 Tab PO DAILY 11/11/18 Reported Hydrochlorothiazide Tablet (Hydrochlorothiazide) 25 Mg Tablet 25 Mg PO DAILY 11/11/18 Reported Allopurinol 300 Mg Tablet 1 Tab PO DAILY 11/11/18 Reported Lisinopril 40 Mg Tablet 1 Tab PO DAILY 11/11/18 Reported Amlodipine Besylate 10 Mg Tablet 10 Mg PO DAILY 11/11/18 Reported Impression . 1. Acute hypoxic respiratory failure in a patient who comes in with fever, and dyspnea for the last 2 years. He also has a chronic cough. He has worked around [employer] for [address] chest c/w right lung pneumonia/ RUL, RLL 2. No significant tobacco history. Plan . 1. On broad-spectrum antibiotic. (ZYVOX, ZOSYN) 2. Continue oxygen. 3. Noncontrast CT chest reviewed and c/w pneumonia 4. Follow Neurology recommendations. 5. Discussed with RN. clinically stable. Abx can be changed to PO and possible dc home CHARLES JACK MD 25, 2019 10:42
--- NOTE | 2019-08-29 10:42 | PDOC ---
Infectious Disease Note Subjective: Subjective Pt doing better no complaints wants to go home today NO F/C/N/V/D/Abdo pain/ symptoms Vital Signs: Vital Signs Vital Signs Date Time Temp Pulse Resp B/P (MAP) Pulse Ox O2 Delivery O2 Flow Rate FiO2 08/29/19 09:23 68 146/63 08/29/19 03:00 98.2 18 94 BiPAP/CPAP 98.2 08/28/19 20:00 3.0 Physical Exam: PHYSICAL EXAM GENERAL: sitting in chair,looks well alert in NAD HEENT: Pupils equally round. Oropharynx is pink and moist. NECK: Supple. LUNGS: Clear. HEART: S1, S2. ABDOMEN: Obese, soft, nontender with bowel sounds present. EXTREMITIES: No gross edema or cyanosis. SKIN: Warm to touch without signs of rash. NEUROLOGIC: Alert, answering questions appropriately. Medications: Inpatient Meds: Current Medications Medications (Trade) Dose Ordered Sig/Taj Start Time Stop Time Status Last Admin Dose Admin Acetaminophen (Tylenol) 650 mg PRN Q6HRS PRN 08/25/19 16:45 08/28/19 17:34 650 MG Allopurinol (Zyloprim) 300 mg DAILY 08/26/19 09:00 08/29/19 09:22 300 MG Amlodipine Besylate (Norvasc) 10 mg DAILY 08/26/19 09:00 08/29/19 09:23 10 MG Ceftriaxone Sodium (Rocephin) 1 gm 1X ONCE 08/25/19 14:15 08/25/19 14:16 DC 08/25/19 15:16 1 GM Fentanyl Citrate (Fentanyl 2ml Vial) 50 mcg 1X ONCE 08/25/19 12:15 08/25/19 12:16 DC 08/25/19 12:12 50 MCG Guaifenesin (Robitussin Dm) 10 ml PRN Q4HRS PRN 08/26/19 11:45 08/29/19 09:32 10 ML Hydrochlorothiazide (Hydrodiuril) 25 mg DAILY 08/26/19 09:00 08/29/19 09:23 25 MG Lactobacillus Rhamnosus (Culturelle) 1 cap BID 08/26/19 21:00 08/29/19 09:23 1 CAP Linezolid (Zyvox) 600 mg BID 08/27/19 21:00 08/27/19 13:56 DC Linezolid/Dextrose 300 ml @ 300 mls/hr 1X ONCE 08/27/19 14:30 08/27/19 15:29 DC 08/27/19 16:54 300 MLS/HR Lisinopril (Prinivil) 40 mg DAILY 08/26/19 09:00 08/29/19 09:23 40 MG Metoprolol Succinate (Toprol Xl) 200 mg DAILY 08/26/19 09:00 08/29/19 09:22 200 MG Ondansetron HCl (Zofran) 4 mg PRN Q4HRS PRN 08/27/19 12:30 08/27/19 12:25 4 MG Piperacillin Sod/ Tazobactam Sod (Zosyn Per Pharmacy) 1 each PRN DAILY PRN 08/25/19 17:45 Piperacillin Sod/ Tazobactam Sod 3.375 gm/Sodium Chloride 50 ml @ 100 mls/hr Q6HRS 08/25/19 18:00 08/29/19 06:38 100 MLS/HR Potassium Chloride (Klor-Con) 40 meq 1X ONCE 08/27/19 15:00 08/27/19 15:04 DC 08/27/19 16:55 40 MEQ Sodium Chloride 1,000 ml @ 125 mls/hr Q8H 08/25/19 14:51 08/26/19 14:50 DC 08/26/19 05:16 125 MLS/HR Vancomycin HCl (Vanco Per Pharmacy) 1 each PRN DAILY PRN 08/25/19 17:45 08/27/19 13:43 DC 08/25/19 19:22 1 EACH Vancomycin HCl (Vancomycin Trough Level) 1 each 1X ONCE 08/27/19 17:30 08/27/19 13:44 DC Vancomycin HCl 1.5 gm/Sodium Chloride 500 ml @ 250 mls/hr Q24H 08/26/19 18:00 08/27/19 13:43 DC 08/26/19 19:54 250 MLS/HR Vancomycin HCl 2 gm/Sodium Chloride 500 ml @ 250 mls/hr 1X ONCE 08/25/19 18:30 08/25/19 20:29 DC 08/25/19 18:35 250 MLS/HR Labs: Micro UC neg BC neg Objective: Assessment: 1. Urinary tract infection present on admission.UC and BC negative 2. Fever.resolved 3. Leukocytosis.resolved 4. Lactic acidosis. 5. Diarrhea. 6. seizure 7. Hypertension. Plan: Plan of Care Pt wants to go home ok to dc home on empiric augmentin and doxycycline for [address] chest still pending Urine culture still pending C. diff and stool cults pending f/u with pcp next week d/w family d/w DEION Da Silva MD Aug 29, 2019 10:42
[2019-08-29 11:36] VITALS: BP 128/65
--- NOTE | 2019-08-29 12:21 | RAD ---
EXAM: CT OF THE CHEST WITHOUT CONTRAST. HISTORY: Interstitial lung disease. TECHNIQUE: Computed tomography of the chest was performed without intravenous contrast. COMPARISON: 08/25/2019, 08/27/2019. FINDINGS: Images of the upper abdomen reveal at least moderate diffuse hepatic steatosis. A hypoattenuating lesion at the right renal upper pole is incompletely characterized but most likely represents a 1.5 cm cyst. Bone windows reveal no suspicious lesions. Calcified mediastinal lymph nodes are likely secondary to old granulomatous disease. A prominent prevascular node measures 1.5 x 0.8 cm. A right paratracheal node measures 1.5 x 0.8 cm. None are clearly pathologically enlarged. There is no pleural or pericardial effusion. The heart is not enlarged. There are calcifications of the aortic valve and coronary arteries. A mild airspace infiltrate has developed in the right upper and right lower lobes since the prior study. This is most consistent with mild pneumonia. There is atelectasis in the costophrenic angles. There is no clear septal line thickening, cystic change or bronchiectasis. Scattered calcified granulomas are noted. IMPRESSION: 1. Mild airspace infiltrates on the right most likely indicate mild pneumonia. Correlate for evidence of infection. No evidence of interstitial lung disease. 2. Mildly prominent mediastinal lymph nodes are likely reactive in this setting. 3. Aortic valve calcifications. Correlate for aortic stenosis. 4. Diffuse hepatic steatosis. *One or more of the following individualized dose reduction techniques were utilized for this examination: 1. Automated exposure control. 2. Adjustment of the mA and/or kV according to patient size. 3. Use of iterative reconstruction technique. Electronically signed by: Laura Love MD (08/29/2019 12:17 PM) [id number]
--- NOTE | 2019-08-29 13:45 | PDOC3 ---
Discharge Summary Date of Admission: Aug 25, 2019 Date of Discharge: Aug 29, 2019 Follow-Up: 3-5 days Admitting Diagnosis comment: DISCHARGE DX Seizure, coagulopathy, leukocytosis, lactic acidosis, hypokalemia, hyponatremia, acute renal failure, malnutrition. HYPOXIC EPISODE 08/27 ct chest mild airspace infiltrates on the right most likely indicate mild pneumonia. Correlate for evidence of infection. No evidence of interstitial lung disease. UTI SEPSIS SEVERE PROTEIN-CALORIC MALNUTRITION admitted. consult Neurology. empiric IV antibiotics D/C Zosyn and CONT vancomycin, consult Nephrology. Frequent labs, PT, OT, DVT prophylaxis. Full code. AVOID ANTICONVULSANTS at this time CT CHEST 08/27 RLL INFILTRATE 08/26 CONTINUE iv vanc and D/C Zosyn f/u cultures C. diff pending 08/28 CONTINUED FEVER IV ZYVOX STARTED T MAX 102 f REPLACED K 08/29 ok to dc home on empiric augmentin and doxycycline for 7 days IF 6 MIN WALK OK 34 MIN PT EXAM, CHART REVIEW D/C PLANNING , > 50% OF TIME SPENT WITH EXAM, CHART REVIEW, PT CARE COORDINATION Vitals Vitals Vital Signs Date Time Temp Pulse Resp B/P (MAP) Pulse Ox O2 Delivery O2 Flow Rate FiO2 08/29/19 03:00 98.2 61 18 137/68 (91) 94 BiPAP/CPAP 98.2 08/28/19 20:00 3.0 Physical Exam Physical Exam GENERAL: Propped up in bed, alert in NAD HEENT: Pupils equally round. Oropharynx is pink and moist. NECK: Supple. LUNGS: Clear. HEART: S1, S2. ABDOMEN: Obese, soft, nontender with bowel sounds present. EXTREMITIES: No gross edema or cyanosis. SKIN: Warm to touch without signs of rash. NEUROLOGIC: Alert, answering questions appropriately. General: Alert, Oriented X3, Cooperative Heart: Regular rate Lungs: Clear, Crackles Abdomen: Normal bowel sounds, Soft, No tenderness Extremities: No cyanosis Labs LABS EXAM: CT OF THE CHEST WITHOUT CONTRAST. HISTORY: Interstitial lung disease. TECHNIQUE: Computed tomography of the chest was performed without intravenous contrast. COMPARISON: 08/25/2019, 08/27/2019. FINDINGS: Images of the upper abdomen reveal at least moderate diffuse hepatic steatosis. A hypoattenuating lesion at the right renal upper pole is incompletely characterized but most likely represents a 1.5 cm cyst. Bone windows reveal no suspicious lesions. Calcified mediastinal lymph nodes are likely secondary to old granulomatous disease. A prominent prevascular node measures 1.5 x 0.8 cm. A right paratracheal node measures 1.5 x 0.8 cm. None are clearly pathologically enlarged. There is no pleural or pericardial effusion. The heart is not enlarged. There are calcifications of the aortic valve and coronary arteries. A mild airspace infiltrate has developed in the right upper and right lower lobes since the prior study. This is most consistent with mild pneumonia. There is atelectasis in the costophrenic angles. There is no clear septal line thickening, cystic change or bronchiectasis. Scattered calcified granulomas are noted. IMPRESSION: 1. Mild airspace infiltrates on the right most likely indicate mild pneumonia. Correlate for evidence of infection. No evidence of interstitial lung disease. 2. Mildly prominent mediastinal lymph nodes are likely reactive in this setting. 3. Aortic valve calcifications. Correlate for aortic stenosis. 4. Diffuse hepatic steatosis. *One or more of the following individualized dose reduction techniques were utilized for this examination: 1. Automated exposure control. 2. Adjustment of the mA and/or kV according to patient size. 3. Use of iterative reconstruction technique. Electronically signed by: Laura Love MD (08/29/2019 12:17 PM) [facility] DICTATED and SIGNED BY: RICHARD LOVE MD DATE: 08/29/19 1217 FINAL DIAGNOSIS Problems Medical Problems: (1) Diarrhea Status: Acute (2) Elevated bilirubin Status: Acute (3) Elevated lactic acid level Status: Acute (4) Hypokalemia Status: Acute (5) Leukocytosis Status: Acute (6) Seizure Status: Acute Brief Hospital Course Mr. Jo is a 69 old [sex] who presented with [PNEUMONIA, SEPSIS ] CONDITION AT DISCHARGE: Improved Discharge Medications Current Medications Sodium Chloride 1,000 ml @ 1,000 mls/hr 1X ONCE IV Last administered on 08/25/19at 12:02; Start 08/25/19 at 12:00; Stop 08/25/19 at 12:59; Status DC Fentanyl Citrate (Fentanyl 2ml Vial) 50 mcg 1X ONCE IVP Last administered on 08/25/19at 12:12; Start 08/25/19 at 12:15; Stop 08/25/19 at 12:16; Status DC Ondansetron HCl (Zofran) 4 mg 1X ONCE IV Last administered on 08/25/19at 12:11; Start 08/25/19 at 12:15; Stop 08/25/19 at 12:16; Status DC Ceftriaxone Sodium (Rocephin) 1 gm 1X ONCE IVP Last administered on 08/25/19at 15:16; Start 08/25/19 at 14:15; Stop 08/25/19 at 14:16; Status DC Potassium Chloride (Klor-Con) 40 meq 1X ONCE PO Last administered on 08/25/19at 17:17; Start 08/25/19 at 15:00; Stop 08/25/19 at 15:01; Status DC Sodium Chloride 1,000 ml @ 125 mls/hr Q8H IV Last administered on 08/26/19at 05:16; Start 08/25/19 at 14:51; Stop 08/26/19 at 14:50; Status DC Acetaminophen (Tylenol) 650 mg PRN Q6HRS PRN PO mild pain/fever Last administered on 08/28/19at 17:34; Start 08/25/19 at 16:45 Allopurinol (Zyloprim) 300 mg DAILY PO Last administered on 08/29/19 09:22; Start 08/26/19 at 09:00 Amlodipine Besylate (Norvasc) 10 mg DAILY PO Last administered on 08/29/19 09:23; Start 08/26/19 at 09:00 Hydrochlorothiazide (Hydrodiuril) 25 mg DAILY PO Last administered on 08/29/19 09:23; Start 08/26/19 at 09:00 Lisinopril (Prinivil) 40 mg DAILY PO Last administered on 08/29/19 09:23; Start 08/26/19 at 09:00 Metoprolol Succinate (Toprol Xl) 200 mg DAILY PO Last administered on 08/29/19 09:22; Start 08/26/19 at 09:00 Vancomycin HCl (Vanco Per Pharmacy) 1 each PRN DAILY PRN MC SEE COMMENTS Last administered on 08/25/19 19:22; Start 08/25/19 at 17:45; Stop 08/27/19 at 13:43; Status DC Piperacillin Sod/ Tazobactam Sod (Zosyn Per Pharmacy) 1 each PRN DAILY PRN MC SEE COMMENTS; Start 08/25/19 at 17:45 Vancomycin HCl 2 gm/Sodium Chloride 500 ml @ 250 mls/hr 1X ONCE IV Last administered on 08/25/19at 18:35; Start 08/25/19 at 18:30; Stop 08/25/19 at 20:29; Status DC Piperacillin Sod/ Tazobactam Sod 3.375 gm/Sodium Chloride 50 ml @ 100 mls/hr Q6HRS IV Last administered on 08/29/19at 13:01; Start 08/25/19 at 18:00 Vancomycin HCl 1.5 gm/Sodium Chloride 500 ml @ 250 mls/hr Q24H IV Last administered on 08/26/19at 19:54; Start 08/26/19 at 18:00; Stop 08/27/19 at 13:43; Status DC Vancomycin HCl (Vancomycin Trough Level) 1 each 1X ONCE MC ; Start 08/27/19 at 17:30; Stop 08/27/19 at 13:44; Status DC Guaifenesin (Robitussin Dm) 10 ml PRN Q4HRS PRN PO COUGH Last administered on 08/29/19at 09:32; Start 08/26/19 at 11:45 Lactobacillus Rhamnosus (Culturelle) 1 cap BID PO Last administered on 08/29/19at 09:23; Start 08/26/19 at 21:00 Ondansetron HCl (Zofran) 4 mg PRN Q4HRS PRN IVP NAUSEA/VOMITING Last administered on 08/27/19at 12:25; Start 08/27/19 at 12:30 Linezolid (Zyvox) 600 mg BID PO ; Start 08/27/19 at 21:00; Stop 08/27/19 at 13:56; Status DC Linezolid/Dextrose 300 ml @ 300 mls/hr Q12HR IV Last administered on 08/29/19at 09:23; Start 08/27/19 at 21:00 Linezolid/Dextrose 300 ml @ 300 mls/hr 1X ONCE IV Last administered on 08/27/19at 16:54; Start 08/27/19 at 14:30; Stop 08/27/19 at 15:29; Status DC Potassium Chloride (Klor-Con) 40 meq 1X ONCE PO Last administered on 08/27/19at 16:55; Start 08/27/19 at 15:00; Stop 08/27/19 at 15:04; Status DC Active Scripts Active Reported Metoprolol Succinate ( Xl ) (Metoprolol Succinate) 200 Mg Tab.er.24h 1 Tab PO DAILY Hydrochlorothiazide Tablet (Hydrochlorothiazide) 25 Mg Tablet 25 Mg PO DAILY Allopurinol 300 Mg Tablet 1 Tab PO DAILY Lisinopril 40 Mg Tablet 1 Tab PO DAILY Amlodipine Besylate 10 Mg Tablet 10 Mg PO DAILY Vital Signs Vital Signs Date Time Temp Pulse Resp B/P (MAP) Pulse Ox O2 Delivery O2 Flow Rate FiO2 08/29/19 11:36 97.5 62 18 128/65 (86) 93 BiPAP/CPAP 97.5 08/29/19 08:15 3.0 Labs Laboratory Tests Test 08/28/19 04:00 Sodium Level 137 mmol/L (136-145) Potassium Level 3.4 mmol/L (3.5-5.1) Chloride Level 99 mmol/L (98-107) Carbon Dioxide Level 27 mmol/L (21-32) Anion Gap 11 (6-14) Blood Urea Nitrogen 10 mg/dL (8-26) Creatinine 1.1 mg/dL (0.7-1.3) Estimated GFR (Cockcroft-Gault) 80.1 Glucose Level 112 mg/dL (70-99) Calcium Level 8.9 mg/dL (8.5-10.1) Allergies Allergies Coded Allergies Type Severity Reaction Last Updated Verified No Known Drug Allergies 11/10/18 No Disposition/Orders: D/C to Home ALIVIA MALDONADO MD Aug 29, 2019 13:45
[2019-08-29] MEDS ORDERED: AMOX1TAB61 PO (13:48)
[2019-08-29] MEDS ORDERED: ACET325T9 PO (13:48)
[2019-08-29] MEDS ORDERED: LACT1CAP19 PO (13:48)
[2019-08-29] MEDS ORDERED: GUAI5SYR PO (13:48)
[2019-08-29] MEDS ORDERED: DOXY-96 PO (13:48)
--- NOTE | 2019-08-29 13:50 | DISCH ---
DISCHARGE INSTRUCTIONS Condition on Discharge Condition on Discharge: Stable Activity After Discharge Activity Instructions for Disc: Activity as tolerated Driving Instructions after Dis: Do not drive Weight Bearing Status after Di: As tolerated Diet after Discharge Diet after Discharge: Cardiac Diet Texture: Regular Checks after Discharge Checks after discharge: Check blood press - daily Contacting the DR. after DC Call your doctor for: If your condition worsens ALIVIA MALDONADO MD Aug 29, 2019 13:50
[2019-08-29 15:11] VITALS: BP 142/76
--- NOTE | 2019-08-29 15:41 | NUR ---
Discharge instructions given to patient regarding following up with his primary care physician. Education given over medications and signs of shortness of air. Patient verbalizes understanding.
== END 2019-08-29 15:35 | disposition home or self-care (01) | DRG 871 ==
LOC: ER 11:04 → 6 SOUTH 14:11
PROVIDERS: ADMIT Internal Medicine; ATTEND Internal Medicine
PROC: 5A09357 Assistance with Respiratory Ventilation, Less than 24 Consecutive Hours, Continuous Positive Airway Pressure (ICD-10-PCS; principal; 2019-08-27)
PROC: 5A09357 Assistance with Respiratory Ventilation, Less than 24 Consecutive Hours, Continuous Positive Airway Pressure (ICD-10-PCS; 2019-08-29)
DX: A41.9 Sepsis, unspecified organism (principal); E43 Unspecified severe protein-calorie malnutrition; J96.01 Acute respiratory failure with hypoxia; J18.9 Pneumonia, unspecified organism; N17.9 Acute kidney failure, unspecified; E87.1 Hypo-osmolality and hyponatremia; D68.9 Coagulation defect, unspecified; E87.2 Acidosis; N39.0 Urinary tract infection, site not specified; M10.9 Gout, unspecified; M19.90 Unspecified osteoarthritis, unspecified site; E87.6 Hypokalemia; G47.33 Obstructive sleep apnea (adult) (pediatric); R56.9 Unspecified convulsions; E78.5 Hyperlipidemia, unspecified; N18.2 Chronic kidney disease, stage 2 (mild); I12.9 Hypertensive chronic kidney disease with stage 1 through stage 4 chronic kidney disease, or unspecified chronic kidney disease; K62.89 Other specified diseases of anus and rectum; K76.0 Fatty (change of) liver, not elsewhere classified; K76.89 Other specified diseases of liver; Z68.36 Body mass index [BMI] 36.0-36.9, adult; Z87.442 Personal history of urinary calculi; Z83.438 Family history of other disorder of lipoprotein metabolism and other lipidemia
CPT/HCPCS: 36415; 36600; 70450; 71045; 71250; 74176; 76770; 80048; 80053; 81001; 82550; 82805; 83605; 83690; 83735; 84484; 85007; 85025; 85610; 87040; 87045; 87086; 87804; 93005; 95816; 96361; 96374; 96375; J0696; J2020; J2405; J2543; J3010; J3370; J7030; J7040; 99291-25; G0378